=== PATIENT | female | born 1965 | race Caucasian/White ===

== ENCOUNTER 2016-06-06 17:09 | Observation (INO) ==
--- NOTE | 2016-06-06 17:48 | Urology History & Physical ---
Date of Encounter: 06/06/16 Time of Encounter: 17:46 Assessment and Plan (1) Right distal ureteral calculus Current Visit: No Status: Acute we discussed options. she has an obstructing stone and an obvious UTI. no obvious clinical signs of sepsis but WBC elevated with shift. pt has elected for OR tonight. will attempt stone extraction bc stone is small and distal. hopefully can remove with minimal manipulation but if unable will just place stent. pt has already received 2000 mg rocephin. (2) UTI (urinary tract infection) Current Visit: No Status: Acute rocephin Qualifiers: Urinary tract infection type: site unspecified Hematuria presence: without hematuria Qualified Code(s): N39.0 - Urinary tract infection, site not specified History of Present Illness Chief complaint: right flank pain HPI: Ms. Brown is a 50 year old female one month hx of pelvic pressure and discomfort. severe pain today. Ct scan 3 mm distal right ureteral stone. low grade fever. transfer from [place]. feels "miserable" today. Past Med Surg Social Fam HX - Past Medical History Medical history: kidney stones, thyroid disease Psychiatric history: no psych history - Social History Smoking Status: Never smoker Alcohol use: none Drug use: none Medications and Allergies Levothyroxine [Synthroid] 112 mcg PO 0630 06/06/16 [History] Allergies promethazine [From Phenergan] Allergy (Verified 06/06/16 17:25) See Comments Review of Systems - Constitutional fatigue, fever(s), no chills - EENT Nose, mouth and throat: no dizziness - Cardiovascular no chest pain - Respiratory no cough - Gastrointestinal abdominal pain, nausea - Genitourinary Genitourinary: flank pain, urinary frequency - Musculoskeletal back pain - Integumentary no erythema - Neurological no confusion - Psychiatric no anxiety - Hematologic/Lymphatic no easy bleeding - Allergic/Immunologic no throat swelling Exam Initial Vital Signs Temp Pulse Resp BP Pulse Ox 98.3 F 95 16 139/79 98 06/06/16 17:19 06/06/16 17:19 06/06/16 17:19 06/06/16 17:19 06/06/16 17:19 - General physical appearance Present: well developed, moderate pain - Eyes Present: PERRL - ENT Present: normal nares - Neck Present: no masses - Respiratory Present: normal respiratory effort - Cardiovascular Cardiovascular exam IM: RRR - Abdomen Abdomen: Present: soft - Integumentary Present: no rash - Neurologic Present: normal coordination - Musculoskeletal Present: normal gait - Additional Findings +CVA tender Urology Results - Labs All other labs normal.
--- NOTE | 2016-06-06 17:52 | Anesthesia Evaluation PreOp ---
Date of Encounter: 06/06/16 Time of Encounter: 18:12 - Past History Planned Operation: R ureteral stone extraction Cardiac History: Denies any Significant Hx Pulmonary History: Denies Any Significant HX TUNNEL HEADING INSPECTOR History: Denies Any Significant HX Other Medical History: Renal (renal stone), Thyroid (hypothyroidism), Other (UTI , psoriatic arthritis) Anesthesia History: No Prior Anesthetic Complications Alcohol Use: none Drug use: none Medications and Allergies Levothyroxine [Synthroid] 112 mcg PO 0630 06/06/16 [History] Allergies promethazine [From Phenergan] Allergy (Verified 06/06/16 17:25) See Comments - Meds/Allergy Pre-op Review Medications Reviewed: Yes Allergies Reviewed: Yes Beta Blockers on Current Med List: No Anesthesia Results - Labs Laboratory Tests 06/06/16 06/06/16 06/06/16 08:49 09:03 09:03 WBC 12.4 H Hgb 11.2 L Hct 35.9 Plt Count 150 Sodium 137 Potassium 3.8 Chloride 103 Carbon Dioxide 22 BUN 13 Creatinine 0.72 Est GFR ( Amer) > 60 Est GFR (Non-Af Amer) > 60 BUN/Creatinine Ratio 18 Glucose 132 H Calculated Osmolality 286 Calcium 10.1 Urine Test Negative Anesthesia Exam Last Vital Signs Temp 98.3 F 06/06/16 17:19 Pulse 95 06/06/16 17:19 Resp 16 06/06/16 17:19 BP 139/79 06/06/16 17:19 Pulse Ox 98 06/06/16 17:19 Weight: 59 kg NPO (# of Hours): water 6 hrs ago, no food > 8 hrs - HEENT Pupil (Motor): Pupils equal, EOMI Mallampati: II Teeth: Missing, Poor dentition Oral Opening: Greater than 3 - TUNNEL HEADING INSPECTOR LOC: Oriented TUNNEL HEADING INSPECTOR Motor: Normal RUE, Normal LUE, Normal RLE, Normal LLE, Normal Face TUNNEL HEADING INSPECTOR Sensory: Normal: RUE, LUE, RLE, LLE, Face - Cardiac Rhythm: Regular Murmur: None - Pulmonary Breath Sounds: bilateral Clear Respiratory Effort: Symmetrical Anesthesia Assess/Plan ASA Score: 2 Modified [place] Scale for Level of Consciousness: Cooperative, oriented, and tranquil Anesthetic Plan: General Monitoring Plan: Standard Monitors Recovery Plan: PACU
[2016-06-06] MEDS ORDERED: Dexamethasone 4 MG/ML VIAL ONE (17:53)
[2016-06-06] MEDS ORDERED: *HR* FentaNYL (PF) 100 MCG/2 ML VIAL ONE (17:53)
[2016-06-06] MEDS ORDERED: Scopolamine Patch 1.5 MG PATCH.TD72 TD ONE (17:53)
[2016-06-06] MEDS ORDERED: *HR* Rocuronium Bromide 50 MG/5 ML VIAL ONE (17:53)
[2016-06-06] MEDS ORDERED: Lidocaine -MPF 4% 5 ML AMPUL ONE (17:53)
[2016-06-06] MEDS ORDERED: *HR* Succinylcholine 200 MG/10 ML VIAL IVP ONE (17:53)
[2016-06-06] MEDS ORDERED: Ondansetron 4 MG/2 ML VIAL ONE (17:53)
[2016-06-06] MEDS ORDERED: *HR* Midazolam HCl 2 MG/2 ML VIAL ONE (17:53)
[2016-06-06] MEDS ORDERED: Lidocaine -MPF 2% 2 ML VIAL ONE (17:54)
[2016-06-06] MEDS ORDERED: Propofol 500 MG/50 ML INFUS..BTL ONE (17:55)
[2016-06-06] MEDS ORDERED: Scopolamine Patch 1.5 MG PATCH.TD72 ONE (17:56)
[2016-06-06] MEDS ORDERED: *HR* HYDROmorphone (PF) 1 MG/ML SYRINGE IVP PRN ×6 (18:01→20:01)
[2016-06-06] MEDS ORDERED: Ondansetron 4 MG/2 ML VIAL IVP ONE ×4 (18:01)
[2016-06-06] MEDS ORDERED: *HR* HYDROcodone/Acet 5/325 mg TABLET PO PRN ×2 (18:53→20:01)
[2016-06-06] MEDS ORDERED: *HR* Morphine 2 MG/ML SYRINGE IVP PRN ×2 (18:53→20:01)
[2016-06-06] MEDS ORDERED: Ketorolac 30 MG/ML VIAL IVP PRN ×2 (18:53→20:01)
[2016-06-06] MEDS ORDERED: Naloxone 0.4 MG/ML INJ IVP PRN ×2 (18:53→20:01)
[2016-06-06] MEDS ORDERED: Ondansetron 4 MG/2 ML VIAL IVP PRN ×2 (18:53→20:01)
--- NOTE | 2016-06-06 18:57 | Operative Note ---
Date of procedure: 06/06/16 Pre-op diagnosis: right distal ureteral stone Post-op diagnosis: same Procedure: right ureteroscopic stone extraction. Right retrograde pyelogram. Right ureteral stent placement Anesthesia: GETA Surgeon: Kelby Zamudio Estimated blood loss (cc): 0 Specimen: Stone Condition: stable Disposition: PACU Procedure in Detail: PROCEDURE IN DETAIL: Patient was taken back to the operating room, positioned supine on the operating table. Anesthesia was applied without complication. They were moved into dorsal lithotomy. Careful attention was maintained to cushion all pressure points for patient's safety. They were prepped and draped in sterile fashion. Time-out was performed with the proper patient and procedure. A 17-Lao rigid cystoscope was inserted into the bladder without difficulty. cloudy purulent urine returned. Systematic examination of bladder revealed no abnormalities. The ureteral orifice was cannulated using a 5-Lao ureteral Catheter and a retrograde pyelogram was performed using Isovue. A filling defect was identified which corresponded to the stone in the distal right ureter. At that point, a zip wire was placed through the 5-Lao and confirmed in the renal pelvis with fluoroscopy. A semi-rigid ureteroscope was carefully inserted into the bladder and guided into the ureteral oriface. The stone was basketed out of the ureter with a 1.9 tipless basket. All stone in the ureter was removed. A 4.8 x 24 ureteral stent was placed over the zip wire under fluoroscopy without complication. The bladder was drained along with the stone. They were collected and sent for stone analysis. The string was left attached to the stent and secured to the patient for easy removal.
[2016-06-06] MEDS ORDERED: 0.9 % Sodium Chloride 1,000 ML IVC SCH (19:00)
--- NOTE | 2016-06-06 19:29 | Anesthesia Evaluation Post Op ---
Date of Encounter: 06/06/16 Time of Encounter: 19:28 - Vital Signs Vital Signs: Vital Signs/O2 Sat, Most Current Temp Pulse Resp BP Pulse Ox 98.0 F 89 16 129/92 97 06/06/16 18:56 06/06/16 19:16 06/06/16 19:16 06/06/16 19:16 06/06/16 19:16 - Lungs Lungs: Clear Ascult./Percussion - Airway Airway: Non-obstructed - Cardiovascular Regular Rate - Mental Status Mental Status: Alert & Oriented, Answers Appropriately - Pain Pain Scale: 3 Pain Scale used: Numeric (1 - 10) - Nausea Vomiting Nausea Vomiting: Not Present - Hydration Hydration: Ice chips, Has not voided - Discharge PostOp Status: Transfer Patient to floor
[2016-06-06] MEDS ORDERED: Acetaminophen 325 MG TABLET PO PRN (20:30)
[2016-06-06] MEDS: 0.9 % Sodium Chloride 1,000 ML IVC SCH (21:22)
[2016-06-07] MEDS: 0.9 % Sodium Chloride 1,000 ML IVC SCH (05:52)
[2016-06-07 06:26] VITALS: BP 95/60
--- NOTE | 2016-06-07 07:18 | Discharge Summary ---
Date of Encounter: 06/07/16 Time of Encounter: 07:15 - Discharge Diagnosis (1) Right distal ureteral calculus Priority: Primary Status: Resolved (2) UTI (urinary tract infection) Priority: Secondary Status: Suspected Qualifiers: Urinary tract infection type: site unspecified Hematuria presence: without hematuria Qualified Code(s): N39.0 - Urinary tract infection, site not specified - Discharge Medications Prescriptions: HYDROcodone/Acet 5/325 mg [Upton 5-325 mg] 1 tab PO Q6HR PRN #15 tablet PRN Reason: Moderate Pain Ketorolac [Toradol] 10 mg PO Q6HR #15 tablet Cefdinir [Omnicef] 300 mg PO BID #20 capsule Phenazopyridine [Pyridium] 200 mg PO TID PRN #20 tablet PRN Reason: dysuria Home Medications: Ergocalciferol (VITAMIN D2) [Vitamin D2] 50,000 unit PO QWEEK 06/06/16 [History] Levothyroxine [Synthroid] 112 mcg PO DAILY 06/06/16 [History] Cefdinir [Omnicef] 300 mg PO BID #20 capsule 06/07/16 [Rx] HYDROcodone/Acet 5/325 mg [Upton 5-325 mg] 1 tab PO Q6HR PRN #15 tablet [Rx] Ketorolac [Toradol] 10 mg PO Q6HR #15 tablet 06/07/16 [Rx] Phenazopyridine [Pyridium] 200 mg PO TID PRN #20 tablet 06/07/16 [Rx] Allergies/Adverse Reactions: Allergies promethazine [From Phenergan] Allergy (Verified 06/06/16 17:25) See Comments Date of admission: 06/06/16 19:57 Primary care physician: Jeffrey Canela MD Discharging clinician: Kelby Zamudio Anticipated date of discharge: 06/07/16 - Patient Status Disposition: Home, Self-Care Functional capacity at discharge: independent ambulation Overall status at discharge: patient is progressing back to baseline - Discharge Instructions Follow Up With: Kelby Zamudio MD [Partnered Physician] - (4 weeks. see instructions regarding stent) Additional Instructions: Expect stent discomfort including urgency, frequency, burning on urination, blood in the urine, flank discomfort. This is normal. Call if excessive. Call if fever over 101 Okay to remove the stent on Friday morning by pulling on the string. Expect some flank discomfort for 24-48 hours after the stent is removed. If unable to remove the stent okay to present to the urology office for removal. - Diet and Activity Activity: increase activity as tolerated Diet: advance to your usual diet - Hospital Course Hospital course: Ms. Brown is a 50 year old female presented with a 3 mm distal ureteral calculi last night and UTI. Successful stone extraction without complication. Vital signs are completely stable overnight. No clinical evidence of sepsis. Patient' s pain is controlled. Expected stent discomfort. She feels comfortable discharge today. Plan to discharge. Antibiotics pending but will use Omnicef. I will personally follow cultures to verify no resistance - Time Spent with Patient Total time spent providing and/or coordinating discharge services: Less than 30 minutes Exam Initial Vital Signs Temp Pulse Resp BP Pulse Ox 98.3 F 95 16 139/79 98 06/06/16 17:19 06/06/16 17:19 06/06/16 17:19 06/06/16 17:19 06/06/16 17:19 - General physical appearance Present: well developed, no distress - VTE Documentation of Mechanical Device: Intermittent pneumatic compression device
== END 2016-06-07 10:30 | disposition home or self-care (01) ==
LOC: EMEROO 17:09 → 3ANU 17:09 → EMEROO 18:03 → 3ANU 18:30 → UNDODISOB 19:59
PROVIDERS: ADMIT Urology; ATTEND Urology

== ENCOUNTER 2017-06-05 12:29 | Inpatient (IN) ==
[2017-06-05] MEDS ORDERED: 0.9 % Sodium Chloride 500 ML IVC ONE (12:33)
[2017-06-05] MEDS ORDERED: Ondansetron 4 MG/2 ML VIAL IVP ONE (12:33)
[2017-06-05 12:57] LABS: Hematocrit 19.4 % (35.3-44.9); Mean Corpuscular HGB Conc 26.3 g/dL (31.6-35.5); Mean Corpuscular Hemoglobin 18.8 pg (28.0-33.3); Mean Corpuscular Volume 71.3 fL (83.0-100.0); Mean Platelet Volume 9.8 fL (9.4-12.4); Platelet Count 116 K/mcL (140-400); Red Blood Count 2.72 M/mcL (3.82-4.97)
[2017-06-05 13:05] LABS: INR 1.1; Prothrombin Time 11.9 Seconds (9.4-12.1)
[2017-06-05 13:06] LABS: Hemoglobin 5.1 g/dL (11.5-15.4)
[2017-06-05 13:11] LABS: BUN/Creatinine Ratio 22 (6-26); Blood Urea Nitrogen 11 mg/dL (6-20); Carbon Dioxide 26 mEq/L (23-29); Chloride 104 mEq/L (98-107); Glucose 98 mg/dL (70-105); Osmolality,Calculated 283 (280-300); Potassium 3.3 mEq/L (3.5-5.1); Sodium 137 mEq/L (136-145); eGFR For African Americans > 60 (> 60); eGFR For Non-African Americans > 60 (> 60)
--- NOTE | 2017-06-05 13:26 | Emergency Department Note ---
Disposition Clinical Impression: Symptomatic anemia Menorrhagia Qualifiers: Menorrahagia type: with regular cycle Qualified Code(s): N92.0 - Excessive and frequent menstruation with regular cycle Disposition: Admitted As Inpatient Condition: Fair Referrals: Jeffrey Canela MD [Primary Care Provider] - Forms: ED Satisfaction Letter Time of Disposition: 14:36 General Adult HPI - General Chief complaint: ED Recheck/Abnormal Lab/Rx Stated complaint: CP/Hemoglobin 5 Time Seen by Provider: 06/05/17 12:32 Source: patient, family Limitations: no limitations Nursing Notes Reviewed: Yes Vital Signs Reviewed: Yes - History of Present Illness HPI Narrative: History of present illness: 51-year-old female 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 Patient states that she has been having many O and metromenorrhagia since January. She was following up with Dr. Mejia but is unable to do so. Her last evaluation was January. She said she really bleeds heavily frequently with large clots with cramping. Patient states she has been having increasing and worsening dyspnea on exertion and chest discomfort with exertion. No history of CAD. Patient quit smoking 20 years ago. Patient denies any blood in her stools or history of GI bleeding. Patient said she was prescribed Naprosyn by Dr. Mejia back in January which was helping somewhat with her symptoms. Patient is not on any blood thinners, but there has been no recent medication changes. Patient's daughter at bedside states she is "pale" Pain Scale: 3 - Related Data Home Medications Medication Instructions Recorded Confirmed Levothyroxine [Synthroid] 112 mcg PO DAILY 06/06/16 06/05/17 Cholecalciferol (D-3) [Vitamin D] 5,000 unit PO DAILY 06/05/17 06/05/17 Ferrous Sulfate [Iron] 325 mg PO BID 06/05/17 06/05/17 Naproxen Sodium [All Day Pain 220 mg PO DAILY PRN 06/05/17 06/05/17 Relief] Ondansetron [Zofran] 8 mg PO DAILY PRN 06/05/17 06/05/17 Allergies Allergy/AdvReac Type Severity Reaction Status Date / Time promethazine [From Phenergan] Allergy See Verified 06/05/17 13:45 Comments Sulfa (Sulfonamide AdvReac Nausea Verified 06/05/17 13:45 Antibiotics) All systems ED: reviewed and negative except as stated. Constitutional: Reports: weakness Cardiovascular: Reports: chest pain, dyspnea on exertion Genitourinary: Reports: abnormal menses Neurological: Reports: weakness Endocrine: Reports: fatigue Past Medical History - Past Medical History Attestation: Yes The following information was validated with the patient. 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 history: Reports: endometriosis - Social History Smoking Status: Former smoker Smokeless Tobacco Status: No Alcohol use: Reports: occasionally Drug use: Reports: none Physical Exam - General Limitations: no limitations General appearance: alert, in no apparent distress - Head Head exam: atraumatic, normocephalic - Eye Eye exam: Present: normal appearance, PERRL, EOMI - ENT ENT exam: normal exam, normal oropharynx - Neck Neck exam: Present: normal inspection, full ROM - Chest Chest inspection: Present: normal inspection, symmetric chest wall rise - Respiratory Respiratory exam: Present: normal lung sounds bilaterally - Cardiovascular Cardiovascular exam: Present: regular rate, normal rhythm - Abdominal Exam Abdominal exam: Present: soft, Non-Tender - Rectal Exam Process Operator present during exam: Yes (MIKI PARKINSON) Rectal exam: Present: normal inspection, normal rectal tone - Extremities Exam Extremities exam: Present: normal inspection, full ROM - Expanded Lower Extremity Exam Neurovascular/Tendon exam: Present: normal capillary refill, pulse deficit Gait: not tested/not observed - Back Exam Back exam: Present: normal inspection, full ROM - Neurological Exam Neurological exam: Present: alert, oriented X3, CN II-XII intact - Psychiatric Psychiatric exam: Present: normal affect, normal mood - Skin Skin exam: Present: warm, dry, intact, pallor Course - Reevaluation(s) Reevaluation #1: Rectal examination showed light brown stool without signs of gross bleeding, fecal occult blood testing is in process. Hemoglobin came back critically low at 5.1 which is a drop of 0.1 mg/dL of hemoglobin from yesterday. 4 units PRBC has been ordered. Second IV has been ordered. Patient be getting a meal tray admission and anticipated awaiting on final labs. Providing 40 minutes of critical care service for this patient. Admission disposition pending Time: 13:28 Reevaluation #2: Discussed case with the hospitalist, patient accepted for admission. Hospitalist requested that I consult PATIENT TRANSPORT OFFICER. Patient's been placed and consult placed orders. Patient to be admitted in stable condition first unit of PRBCs is running in. Time: 14:35 Vital Signs Temperature 98.3 F 06/05/17 12:30 Pulse Rate 84 06/05/17 12:30 Respiratory Rate 20 06/05/17 12:30 Blood Pressure 152/102 06/05/17 12:30 O2 Sat by Pulse Oximetry 100 06/05/17 12:30 Temperature 98.8 F 06/05/17 14:31 Pulse Rate 94 06/05/17 14:31 Respiratory Rate 16 06/05/17 14:31 Blood Pressure 123/90 06/05/17 14:31 O2 Sat by Pulse Oximetry 100 06/05/17 12:30 Oxygen Delivery Oxygen Delivery Room Air Medical Decision Making - Medical Records Medical records reviewed: Yes I reviewed the patient's medical records. - Lab Data Lab results reviewed: Yes I reviewed the patient's lab results. Result diagrams: 06/05/17 12:45 06/05/17 12:45 Lab Results 06/05/17 06/05/17 06/05/17 Range/Units 12:45 12:45 12:45 WBC 3.3 L (4.3-11.1) K/mcL RBC 2.72 L (3.82-4.97) M/mcL Hgb 5.1 L* (11.5-15.4) g/dL Hct 19.4 L (35.3-44.9) % MCV 71.3 L (83.0-100.0) fL MCH 18.8 L (28.0-33.3) pg MCHC 26.3 L (31.6-35.5) g/dL RDW 19.0 H (11.5-14.5) % Plt Count 116 L (140-400) K/mcL MPV 9.8 (9.4-12.4) fL Seg Neutrophils % 66.0 % Lymphocytes % 20.0 % Monocytes % 12.0 % Eosinophils % 2.0 % Neutrophils # 2.2 (1.6-8.9) K/mcL Lymphocytes # 0.7 (0.6-4.6) K/mcL Monocytes # 0.4 (0.0-1.3) K/mcL Eosinophils # 0.1 (0.0-0.6) K/mcL Platelet Estimate Slight Decrease L (Normal) Polychromasia 1+ A (Not Present) Hypochromasia Present A (Not Present) Anisocytosis 1+ A (Not Present) Microcytosis Present A (Not Present) PT 11.9 (9.4-12.1) Seconds INR 1.1 Sodium (136-145) mEq/L Potassium (3.5-5.1) mEq/L Chloride (98-107) mEq/L Carbon Dioxide (23-29) mEq/L BUN (6-20) mg/dL Creatinine (0.60-1.20) mg/dL Est GFR ( Amer) (> 60) Est GFR (Non-Af Amer) (> 60) BUN/Creatinine Ratio (6-26) Glucose (70-105) mg/dL Calculated Osmolality (280-300) Calcium (8.6-10.3) mg/dL Troponin I (< 0.04) ng/mL Stool Occult Blood (Negative) Blood Type A POSITIVE Antibody Screen NEGATIVE Crossmatch See Detail 06/05/17 06/05/17 06/05/17 Range/Units 12:45 12:45 13:36 WBC (4.3-11.1) K/mcL RBC (3.82-4.97) M/mcL Hgb (11.5-15.4) g/dL Hct (35.3-44.9) % MCV (83.0-100.0) fL MCH (28.0-33.3) pg MCHC (31.6-35.5) g/dL RDW (11.5-14.5) % Plt Count (140-400) K/mcL MPV (9.4-12.4) fL Seg Neutrophils % % Lymphocytes % % Monocytes % % Eosinophils % % Neutrophils # (1.6-8.9) K/mcL Lymphocytes # (0.6-4.6) K/mcL Monocytes # (0.0-1.3) K/mcL Eosinophils # (0.0-0.6) K/mcL Platelet Estimate (Normal) Polychromasia (Not Present) Hypochromasia (Not Present) Anisocytosis (Not Present) Microcytosis (Not Present) PT (9.4-12.1) Seconds INR Sodium 137 (136-145) mEq/L Potassium 3.3 L (3.5-5.1) mEq/L Chloride 104 (98-107) mEq/L Carbon Dioxide 26 (23-29) mEq/L BUN 11 (6-20) mg/dL Creatinine 0.51 L (0.60-1.20) mg/dL Est GFR ( Amer) > 60 (> 60) Est GFR (Non-Af Amer) > 60 (> 60) BUN/Creatinine Ratio 22 (6-26) Glucose 98 (70-105) mg/dL Calculated Osmolality 283 (280-300) Calcium 9.0 (8.6-10.3) mg/dL Troponin I < 0.03 (< 0.04) ng/mL Stool Occult Blood Negative (Negative) Blood Type Antibody Screen Crossmatch - Radiology Data Radiology results reviewed: Yes I reviewed the patient's radiology results. - EKG Data EKG #1 EKG attestation: Yes I reviewed and interpreted this EKG. EKG results narrative: 12-lead EKG reviewed without Cardiologic assisting shows: Sinus rhythm at 88 bpm, [place] interval shortened at 104 ms, normal QRS and QT corrected. No acute ischemic changes are noted. No acute changes when compared to prior EKG dated the 12/22/16
[2017-06-05 13:38] LABS: Anisocytosis 1+ (Not Present); Eosinophils # 0.1 K/mcL (0.0-0.6); Hypochromasia Present (Not Present); Lymphocytes # 0.7 K/mcL (0.6-4.6); Microcytosis Present (Not Present); Monocytes # 0.4 K/mcL (0.0-1.3); Neutrophils # 2.2 K/mcL (1.6-8.9); Platelet Estimate Slight Decrease (Normal)
[2017-06-05 13:39] LABS: Polychromasia 1+ (Not Present)
[2017-06-05] MEDS ORDERED: 0.9 % Sodium Chloride 250 ML ONE ×3 (14:02→21:18)
--- NOTE | 2017-06-05 19:59 | OB/GYN Consult Note ---
Date of Encounter: 06/05/17 Time of Encounter: 19:55 Assessment and Plan (1) Symptomatic anemia Current Visit: Yes Status: Acute Anemia managed by hospital service (2) Pancytopenia Current Visit: Yes Status: Acute Pancytopenia noted on labs (3) Menorrhagia Current Visit: Yes Status: Acute All labs, previous CT, previous ob office notes and H&P reviewed with Dr. Sinclair Plan to perform transvaginal and transabdominal ultrasound in the morning. Drop in hemoglobin unlikely due to menses as sole cause, Will follow-up on ultrasound Discussed with Dr. Rogers Qualifiers: Menorrahagia type: with irregular cycle Qualified Code(s): N92.1 - Excessive and frequent menstruation with irregular cycle History of Present Illness Consult date: 06/05/17 Reason for consult: menorrhagia Chief complaint: Metomenorrhagia History of present illness: 51-year-old female presented to the emergency department after phone call from PCP directing admission for blood transfusion. with chief complaint of chest pain and quality and breathing with shortness of breath. Patient states the symptoms have been going on for 3 weeks. She had basic lab work completed at primary care physician yesterday and showed a hemoglobin of 5.1. She was told to follow up with the emergency department. In the emergency department CBC completed showed pancytopenia. Stool occult was negative. We will consult a due to patient's heavy bleeding during menstruation and concerned this could be the cause of the anemia. Patient states she does have anemia as a child but has not had as an adult. Pt with a history of menometrorrhagia for the last few years. Pt states menses are monthly lasting on average 6 days and extremely heavy and had multiple large clots, that occasionally appear to have tissue like placenta in clots. on her 3 heaviest days of menses she has to use 2 overnight pads an hour and uses a whole box in 2 -3 days. Occasional breakthough bleeding, spotting requiring a pantyliner, resolves by taking Naproxen. She did follow up with Dr. Mejia in December and given naproxen and ferrous sulfate. She states she takes the iron approximately every other day. Patient states she is in naproxen as needed. Pt states has had nausea since parathyroid surgery in January, and has had a 10 lb unintentional weight loss since surgery. She states no active bleeding at this time. LMP was the beginning of this month. Patient does have a significant past medical history of IBS, chronic nausea, parathyroid surgery. Does have a significant past family history of uterine cancer in mother and breast cancer in grandmother. Patient states she does have spotting during intercourse. Has not had any recent ultrasounds but did have a CT completed in March in the emergency department which did not show any acute pelvic abnormalities. Past Med Surg Social Fam HX - Past Medical History Medical history: GERD, kidney stones, thyroid disease, other Psychiatric history: no psych history - Past Surgical History Surgical History: sinus surgery - Social History Smoking Status: Former smoker Smokeless Tobacco Status: No Alcohol use: occasionally Drug use: none - Family History Grandmother Hx Family Cancer: Yes Mother Hx Family Cancer: Yes (uterine) Hx Family Endocrine Disorder: Yes (diabetes) Hx Family Autoimmune Disorders: Yes (lupus) Hx Family Reproductive Disorders: Yes (uterine cancer) Medications and Allergies Levothyroxine [Synthroid] 112 mcg PO DAILY 06/06/16 [History] Cholecalciferol (D-3) [Vitamin D] 5,000 unit PO DAILY 06/05/17 [History] Ferrous Sulfate [Iron] 325 mg PO BID 06/05/17 [History] Naproxen Sodium [All Day Pain Relief] 220 mg PO DAILY PRN 06/05/17 [History] Ondansetron [Zofran] 8 mg PO DAILY PRN 06/05/17 [History] 3 Allergy/AdvReac Type Severity Reaction Status Date / Time promethazine [From Phenergan] Allergy See Verified 06/05/17 13:45 Comments Sulfa (Sulfonamide AdvReac Nausea Verified 06/05/17 13:45 Antibiotics) Review of Systems All Systems: reviewed and no additional remarkable complaints except as stated Constitutional: anorexia, fatigue, lethargy, weakness, weight loss (10 pounds in 3 months) Cardiovascular: chest pain, palpitations Respiratory: dyspnea Gastrointestinal: diarrhea, nausea Genitourinary Female: abnormal menses, abnormal vaginal bleeding, dysmenorrhea, menorrhagia, metrorrhagia, no amenorrhea Menstruation: cycle variable, menses 1-7 days, period heavy, period spotting Exam - Vital Signs Vital signs: Initial Vital Signs Temp Pulse Resp BP Pulse Ox 98.3 F 84 20 152/102 100 06/05/17 12:30 06/05/17 12:30 06/05/17 12:30 06/05/17 12:30 06/05/17 12:30 - Constitutional Constitutional: well developed, no acute distress, thin - HEENT HEENT: Mucus Membranes Moist - Lungs Respiratory exam: CTAB - Cardiovascular Cardiovascular exam: RRR - Abdomen Abdomen: Present: bowel sounds normal, non tender - Extremities Extremities exam: normal inspection - Vagina Vagina: Present: normal moisture. Absent: discharge, ulceration - Uterus Uterus exam: Present: enlarged, normal contour. Absent: tender - Anus/Rectum Anus/Rectum: Present: normal perianal skin - Comments Comments: Unable to palpate adenexa due to patient position and discomfort Results Result Diagrams: 06/05/17 12:45 06/05/17 12:45 Abnormal lab results WBC 3.3 K/mcL (4.3-11.1) L 06/05/17 12:45 RBC 2.72 M/mcL (3.82-4.97) L 06/05/17 12:45 Hgb 5.1 g/dL (11.5-15.4) L* 06/05/17 12:45 Hct 19.4 % (35.3-44.9) L 06/05/17 12:45 MCV 71.3 fL (83.0-100.0) L 06/05/17 12:45 MCH 18.8 pg (28.0-33.3) L 06/05/17 12:45 MCHC 26.3 g/dL (31.6-35.5) L 06/05/17 12:45 RDW 19.0 % (11.5-14.5) H 06/05/17 12:45 Plt Count 116 K/mcL (140-400) L 06/05/17 12:45 Platelet Estimate Slight Decrease (Normal) L 06/05/17 12:45 Polychromasia 1+ (Not Present) A 06/05/17 12:45 Hypochromasia Present (Not Present) A 06/05/17 12:45 Anisocytosis 1+ (Not Present) A 06/05/17 12:45 Microcytosis Present (Not Present) A 06/05/17 12:45 Potassium 3.3 mEq/L (3.5-5.1) L 06/05/17 12:45 Creatinine 0.51 mg/dL (0.60-1.20) L 06/05/17 12:45 All other labs normal. Consult Discharge Plan - Plan Referrals: Jeffrey Canela MD [Primary Care Provider] -
[2017-06-05] MEDS ORDERED: *HR* Morphine 2 MG/ML SYRINGE IVP PRN (20:12)
[2017-06-05] MEDS ORDERED: Ondansetron 4 MG/2 ML VIAL IVP PRN (20:12)
[2017-06-05] MEDS ORDERED: Naloxone 0.4 MG/ML INJ IVP PRN (20:12)
[2017-06-05] MEDS ORDERED: Acetaminophen 325 MG TABLET PO PRN (20:12)
--- NOTE | 2017-06-05 20:54 | Internal Med History&Physical ---
Date of Encounter: 06/05/17 Time of Encounter: 19:40 Assessment and Plan (1) Symptomatic anemia Current visit: Yes Status: Acute 1. Iron studies obtained yesterday and reviewed with Dr. Apodaca via phone consultation. 2. Labs and history suggest iron deficiency from vaginal bleeding. 3. Transfuse 3 units PRBC as ordered by ER. 4. Will start Venofer infusion as requested by Dr. Apodaca. 5. HEM/ONC consulted to assist in work-up and follow up of iron deficiency anemia. (2) Chest pain Current visit: Yes Status: Acute 1. Based upon history and exam, I suspect this is due to profound and symptomatic anemia. 2. Will trend tropnins and EKG's. 3. Outpatient stress test can be done as outpatient once anemia and clinical condition stabilize. 4. Resolved after first unit PRBC. Qualifiers: Chest pain type: chest pain due to myocardial ischemia Ischemic chest pain type: other angina pectoris type Qualified Code(s): I20.8 - Other forms of angina pectoris (3) Menorrhagia Current visit: Yes Status: Chronic 1. BARREL MARKER consulted. 2. Pelvic ultrasound ordered for tomorrow. 3. BARREL MARKER follow up after discharge. Qualifiers: Menorrahagia type: with irregular cycle Qualified Code(s): N92.1 - Excessive and frequent menstruation with irregular cycle (4) Pancytopenia Current visit: Yes Status: Acute 1. Follow up CBC tomorrow. 2. Consult HEM/ONC -- Dr. Apodaca notified. (5) DVT prophylaxis Current visit: Yes Status: Acute 1. EPCD's. Internal Medicine - H&P: HPI Chief complaint: chest pain; dyspnea on exertion; anemia Admitted From: Emergency Dept Plans for Post Hospital Care: Home History of present illness: Ms. Brown is a 51 year old female who presents to the ER today with complaints of vague chest tightness, dyspnea on exertion, and profound anemia. She was found to have a hemoglobin of 5.1 mg and was admitted for symptomatic anemia. EKG and troponins were negative. She reports having had chronic and profound menorrhagia for the last several months with worsening anemia. Lab studies suggest iron deficiency anemia. She was ordered 3 units of PRBC transfusion by the ER. By the time I saw her, she was in the middle of her second unit of blood transfusion and feels much better. She denies any chest pain or shortness of breath presently. BARREL MARKER saw her in consultation and has ordered pelvic ultrasound in the morning. They requested a HEM/ONC consultation given her pancytopenia. I reviewed her labs and, other than today, she has not had pancytopenia. I did contact Dr. Apodaca from HEM/ONC, and he will see her in consultation tomorrow. He recommended starting Venofer tonight for her iron deficiency. Past Med Surg Social Fam HX - Past Medical History Attestation: Yes The following information was validated with the patient. Source: patient, old records reviewed Medical history: GERD, kidney stones, thyroid disease Psychiatric history: no psych history - Past Surgical History Surgical History: sinus surgery, other (parathyroid surgery) - Social History Smoking Status: Former smoker Smokeless Tobacco Status: No Alcohol use: occasionally Drug use: none Current living situation: Home, With Family Activity Level: Independent ambulation Recent Out of Country Travel Within the Last 8 Weeks: No - Family History Grandmother Hx Family Cancer: Yes Mother Hx Family Cancer: Yes (uterine) Hx Family Endocrine Disorder: Yes (diabetes) Hx Family Autoimmune Disorders: Yes (lupus) Hx Family Reproductive Disorders: Yes (uterine cancer) Internal Medicine - H&P: Meds Levothyroxine [Synthroid] 112 mcg PO DAILY 06/06/16 [History] Cholecalciferol (D-3) [Vitamin D] 5,000 unit PO DAILY 06/05/17 [History] Ferrous Sulfate [Iron] 325 mg PO BID 06/05/17 [History] Naproxen Sodium [All Day Pain Relief] 220 mg PO DAILY PRN 06/05/17 [History] Ondansetron [Zofran] 8 mg PO DAILY PRN 06/05/17 [History] 3 Allergy/AdvReac Type Severity Reaction Status Date / Time promethazine [From Phenergan] Allergy See Verified 06/05/17 13:45 Comments Sulfa (Sulfonamide AdvReac Nausea Verified 06/05/17 13:45 Antibiotics) - Constitutional Constitutional: fatigue, no chills, no fever(s) - EENT Eyes: no blurry vision, no change in vision Ears: no ear pain, no tinnitus Nose, mouth and throat: no nasal congestion, no sinus pressure, no sore throat - Cardiovascular Cardiovascular ROS IM: chest pain, dyspnea on exertion, no palpitations, no syncope - Respiratory Respiratory: dyspnea on exertion, no cough, no hemoptysis, no chest congestion, no excessive phlegm production, no change in phlegm color - Gastrointestinal Gastrointestinal: nausea, no abdominal pain, no heartburn, no hematemesis, no hematochezia, no melena, no vomiting - Genitourinary Genitourinary: abnormal menses, abnormal vaginal bleeding, menorrhagia, no dysuria, no flank pain, no hematuria - Musculoskeletal Musculoskeletal ROS IM: muscle cramps, no back pain, no myalgias - Integumentary Integumentary IM: no rash, no jaundice - Neurological Neurological ROS: weakness, no focal weakness, no frequent falls, no headache(s) - Psychiatric Psychiatric: no anxiety, no depression - Endocrine Endocrine IM: no polydipsia, no polyuria - Hematologic/Lymphatic Hematologic/Lymphatic: easy bruising, no lymphadenopathy - Allergic/Immunologic Allergic/Immunologic: no wheezing, no GI upset with certain foods - Constitutional Vitals: Temp Pulse Resp BP Pulse Ox 99.0 F 76 12 135/86 100 06/05/17 18:02 06/05/17 18:02 06/05/17 18:02 06/05/17 18:02 06/05/17 12:30 General appearance: Present: cooperative, A&O X 3, pleasant, no acute distress, answers questions appropriately - Head Head exam: Present: atraumatic, normal inspection - Eye Eye exam: Present: EOMI, PERRL. Absent: scleral icterus, conjuntiva pink (pale) Pupils: Present: normal accommodation - ENT ENT exam: Present: mucous membranes dry, normal exam - Neck Neck exam general surgery: Present: full ROM, supple. Absent: lymphadenopathy, tenderness - Respiratory Respiratory exam: Present: CTAB. Absent: chest wall tenderness, rales, respiratory distress, rhonchi, wheezes - Cardiovascular Cardiovascular exam: Present: RRR, +S1, +S2. Absent: diastolic murmur, systolic murmur - GI/Abdominal GI/Abdominal exam: Present: normal bowel sounds, soft. Absent: guarding, hepatomegaly, mass, rebound, splenomegaly, tenderness - Extremities Exam Extremities exam: Present: full ROM, warm, radial pulses palpable and symmetrical. Absent: calf tenderness, joint swelling - Back Exam Back exam: Absent: CVA tenderness (L), CVA tenderness (R) - Neurological Exam Neurological exam: Present: alert, CN II-XII intact, oriented X3, no focal deficits - Psychiatric Psychiatric exam: Present: normal affect, normal mood - Skin Skin exam: Present: dry, warm. Absent: rash Internal Med - H&P Results - Labs CBC & Chem 7: 06/05/17 12:45 06/05/17 12:45 - EKG Data -: EKG Interpreted by Myself EKG shows normal: sinus rhythm - EKG Data EKG comments: 06/05/17 21:04 NSR; no acute changes - Diagnostic Studies Chest x-ray Status: image reviewed by me (negative)
[2017-06-05] MEDS: Famotidine 20 MG TABLET PO SCH (23:37)
[2017-06-06] MEDS: Iron Sucrose Complex 200 MG in 0.9 % Sodium Chloride 100 ML IVPB SCH ×2 (00:44→14:35)
[2017-06-06 02:02] LABS: Basophils % 0.4 %; Eosinophils # 0.1 K/mcL (0.0-0.6); Eosinophils % 2.3 %; Hematocrit 30.1 % (35.3-44.9); Immature Granulocytes % 0.4 % (0-4); Lymphocytes # 0.9 K/mcL (0.6-4.6); Lymphocytes % 18.6 %; Mean Corpuscular HGB Conc 29.9 g/dL (31.6-35.5); Mean Platelet Volume 10.8 fL (9.4-12.4); Monocytes # 0.6 K/mcL (0.0-1.3); Neutrophils # 3.2 K/mcL (1.6-8.9); Nucleated Red Blood Cells 0.8 /100 WBC (0); Platelet Count 122 K/mcL (140-400); Red Blood Count 3.91 M/mcL (3.82-4.97); Red Cell Distribution Width 19.4 % (11.5-14.5); Segmented Neutrophils % 66.3 %
[2017-06-06 02:20] LABS: Alanine Aminotransferase 19 Units/L (7-52); Albumin 3.6 g/dL (3.5-5.7); Albumin/Globulin Ratio 1.5 (1.1-2.2); Alkaline Phosphatase 44 Units/L (34-104); Aspartate Amino Transferase 44 Units/L (13-39); BUN/Creatinine Ratio 16 (6-26); Bilirubin,Total 1.5 mg/dL (0.3-1.0); Blood Urea Nitrogen 11 mg/dL (6-20); Calcium 8.8 mg/dL (8.6-10.3); Carbon Dioxide 27 mEq/L (23-29); Chloride 105 mEq/L (98-107); Globulin 2.4 g/dL (2.4-3.5); Glucose 114 mg/dL (70-105); Magnesium 1.7 mg/dL (1.6-2.6); Osmolality,Calculated 282 (280-300); Potassium 3.8 mEq/L (3.5-5.1); Sodium 136 mEq/L (136-145); eGFR For African Americans > 60 (> 60); eGFR For Non-African Americans > 60 (> 60)
[2017-06-06] MEDS: Famotidine 20 MG TABLET PO SCH (08:18)
[2017-06-06] MEDS ORDERED: Cholecalciferol (D-3) 1,000 UNIT TABLET PO SCH (09:00)
--- NOTE | 2017-06-06 09:45 | Oncology Inp Consult Note ---
<Nusrat Richmond L - Last Filed: 06/06/17 18:05> Date of Encounter: 06/06/17 Time of Encounter: 09:45 Assessment and Plan (1) Anemia Status: Acute Assessment and plan: Mircrocytic, hypochromic. Hgb upon upon admission 5.1, Hgb today 9.0 following 3 units PRBC. She also received her first dose of venofer today and tolerated well. She is improving symptomatically. Anemia most likely secondary to chronic blood loss causing iron deficiency coupled with a B12 deficiency. Anemia work up shows she is significantly iron deficient with iron 15 and 2% saturation, ferritin <8. She has venofer 200 mg ordered x5 days while admitted, if she is discharged prior to this we will follow up with IV iron replacement on outpatient basis. B12 deficiency, serum B12 low at 239, recommend B12 1000 g IM and folic acid 1 mg by mouth daily. She has no hx of bowel surgery/disorders, she does not take metformin/PPI. Thromboctopenia is mild may be secondary to B12 deficiency. She would benefit from continued CBC monitoring and will have f/u arranged with hematology/ oncology. Leukopenia resolved, WBC yesterday 3.3, 4.9 today. Stool occult negative. She has LEATHERSMITH consult and pelvic US ordered for today and will follow up with [facility]ACILITY MAINTENANCE WORKER on outpatient basis. Qualifiers: Anemia type: iron deficiency Qualified Code(s): D50.0 - Iron deficiency anemia secondary to blood loss (chronic) - Data of Consult Patient: new to practice Consult date: 06/06/17 Requesting Physician: Benjamín Aden Primary Care Provider: Jeffrey Canela MD - Consult Narrative Reason for consult: Anemia History of present illness: Ms. Brown is a 51 year old female with past medical history significant for uretal stones and menorrhagia. Patient presented to the ER with complaints of chest tightness and dyspnea on exertion. Further work up revealed a hgb of 5.1, she was admitted for anemia. She reports she has had chronic and severe menorrhagia for the past 2-3 months, she had a planned ablation but this was cancelled due to her parathyroidectomy. Oncology was consulted for pancytopenia , which has resolved however her anemia and mild thrombocytopenia is still present. Past Med Surg Social Fam HX - Past Medical History Medical history: GERD, kidney stones, thyroid disease Psychiatric history: no psych history - Past Surgical History Surgical History: sinus surgery, other (parathyroid surgery) - Social History Smoking Status: Former smoker Smokeless Tobacco Status: No Alcohol use: occasionally Drug use: none - Family History Grandmother Hx Family Cancer: Yes Mother Hx Family Cancer: Yes (uterine) Hx Family Endocrine Disorder: Yes (diabetes) Hx Family Autoimmune Disorders: Yes (lupus) Hx Family Reproductive Disorders: Yes (uterine cancer) Medications and Allergies Levothyroxine [Synthroid] 112 mcg PO DAILY 06/06/16 [History] Cholecalciferol (D-3) [Vitamin D] 5,000 unit PO DAILY 06/05/17 [History] Ferrous Sulfate [Iron] 325 mg PO BID 06/05/17 [History] Naproxen Sodium [All Day Pain Relief] 220 mg PO DAILY PRN 06/05/17 [History] Ondansetron [Zofran] 8 mg PO DAILY PRN 06/05/17 [History] Iron SUCROSE Complex [Venofer] 200 mg IV DAILY 3 Days #30 mls 06/06/17 [Rx] 3 Allergy/AdvReac Type Severity Reaction Status Date / Time promethazine [From Phenergan] Allergy See Verified 06/05/17 13:45 Comments Sulfa (Sulfonamide AdvReac Nausea Verified 06/05/17 13:45 Antibiotics) Constitutional: Present: fatigue, weakness. Absent: headache(s), weight loss Eyes: Absent: change in vision Cardiovascular: Present: lightheadedness. Absent: palpitations, syncope Additional comments: chest tightness Respiratory: Present: dyspnea. Absent: cough, chest congestion Gastrointestinal: Present: nausea. Absent: abdominal pain, hematemesis, hematochezia, melena, vomiting Genitourinary: Absent: dysuria Musculoskeletal: Present: muscle weakness Neurological: Absent: loss of vision Hematologic/Lymphatic: Absent: easy bleeding Oncology - Exam - Constitutional Vitals: Temp Pulse Resp BP Pulse Ox 98.8 F 66 15 129/83 97 06/06/17 06:23 06/06/17 06:23 06/06/17 06:23 06/06/17 06:23 06/06/17 06:23 General appearance: cooperative, no acute distress, no febrile - Head Head exam: Present: atraumatic - Respiratory Respiratory exam: Present: CTAB. Absent: respiratory distress - Cardiovascular Cardiovascular exam: Present: RRR, +S1, +S2 - GI/Abdominal GI/Abdominal exam: Present: normal bowel sounds, soft. Absent: tenderness - Extremities Exam Extremities exam: Absent: calf tenderness, pedal edema - Neurological Exam Neurological exam: Present: alert, oriented X3, strengths equal and symetr throughout. Absent: no focal deficits - Psychiatric Psychiatric exam: Present: normal affect, normal mood - Skin Skin exam: Present: normal color, warm Oncology - Results Labs: Short CBC 06/06/17 Range/Units 01:42 WBC 4.9 (4.3-11.1) K/mcL Hgb 9.0 L D (11.5-15.4) g/dL Hct 30.1 L (35.3-44.9) % Plt Count 122 L (140-400) K/mcL Neutrophils # 3.2 (1.6-8.9) K/mcL BMP 06/06/17 01:42 Sodium 136 Potassium 3.8 Chloride 105 Carbon Dioxide 27 BUN 11 Creatinine 0.67 Glucose 114 H Calcium 8.8 Cardiac Enzymes 06/06/17 06/06/17 Range/Units 01:42 08:04 Troponin I < 0.03 < 0.03 (< 0.04) ng/mL Liver Function 06/06/17 Range/Units 01:42 Total Bilirubin 1.5 H (0.3-1.0) mg/dL AST 44 H (13-39) Units/L ALT 19 (7-52) Units/L Alkaline Phosphatase 44 (34-104) Units/L Albumin 3.6 (3.5-5.7) g/dL Consult Discharge Plan - Plan Instructions: Anemia (DC) Referrals: Jeffrey Canela MD [Primary Care Provider] - (Patient wishes to make her own PCP appt. Thank you) Leland Sinclair MD [Partnered Physician] - 06/24/17 3:55 pm Prescriptions: Iron SUCROSE Complex [Venofer] 200 mg IV DAILY 3 Days #30 mls <Mindy Da Silva - Last Filed: 06/09/17 08:40> Date of Encounter: 06/09/17 - Data of Consult Requesting Physician: Benjamín Aden Primary Care Provider: Jeffrey Canela MD - Consult Narrative History of present illness: Ms. Brown is a 51 year old female Oncology - Exam - Constitutional Vitals: Temp Pulse Resp BP Pulse Ox 99.2 F 74 15 127/86 98 06/06/17 15:38 06/06/17 15:38 06/06/17 15:38 06/06/17 15:38 06/06/17 15:38 - Attending Attestation Significant microcytic anemia hemoglobin 5 MCV 77. Most likely secondary to ongoing vaginal bleeding. She had 3 units of packed RBC transfusion and Venofer IV. B12 low at 232 and folate 5. B12 1000 g IM and folic acid 1 mg by mouth daily We will follow her as an outpatient and give more IV iron as needed and also B12 supplements. She missed a follow-up with FACILITY MAINTENANCE WORKER to address the vaginal bleeding. If anemia persists after vaginal bleeding resolves may consider colonoscopy
[2017-06-06 15:40] VITALS: BP 127/86
--- NOTE | 2017-06-06 16:23 | Discharge Summary ---
Date of Encounter: 06/06/17 Time of Encounter: 11:00 - Discharge Diagnosis (1) Symptomatic anemia Priority: Primary Status: Acute - Discharge Medications Prescriptions: Iron SUCROSE Complex [Venofer] 200 mg IV DAILY 3 Days #30 mls Home Medications: Levothyroxine [Synthroid] 112 mcg PO DAILY 06/06/16 [History] Cholecalciferol (D-3) [Vitamin D] 5,000 unit PO DAILY 06/05/17 [History] Ferrous Sulfate [Iron] 325 mg PO BID 06/05/17 [History] Naproxen Sodium [All Day Pain Relief] 220 mg PO DAILY PRN 06/05/17 [History] Ondansetron [Zofran] 8 mg PO DAILY PRN 06/05/17 [History] Iron SUCROSE Complex [Venofer] 200 mg IV DAILY 3 Days #30 mls 06/06/17 [Rx] Allergies/Adverse Reactions: 3 Allergy/AdvReac Type Severity Reaction Status Date / Time promethazine [From Phenergan] Allergy See Verified 06/05/17 13:45 Comments Sulfa (Sulfonamide AdvReac Nausea Verified 06/05/17 13:45 Antibiotics) Procedures/tests Complete & Pending: Procedures Performed prior 72 hours Category Date Time Status US pelvis extended [US] Routine Exams 06/06/17 13:00 Completed ECG 12 lead ECG [ECG] AM 0600 Y 06/06/17 06:00 Ordered Date of admission: 06/05/17 14:42 Primary care physician: Jeffrey Canela MD Consults: 06/05/17 20:43 Consult to Oncology Hematology [CONS] Routine Consulting Provider: Harley Apodaca Reason for Consult: anemia; pancytopenia Time Notified: 20:49 Call Completed: Yes - Patient Status Disposition: Home Health Service Condition: Fair - Discharge Instructions Follow Up With: Jeffrey Canela MD [Primary Care Provider] - (Patient wishes to make her own PCP appt. Thank you) Leland Sinclair MD [Partnered Physician] - 06/24/17 3:55 pm Hospital course: Patient is a 51-year-old female who presented to the ER on 06/05/17 with chest pain and dyspnea on exertion. In the ER, patient was found to be anemic with a hemoglobin of 5.1 and was admitted to the medical floor for further medical management. During patients hospital stay, her hemoglobin improved to 9.0 status post 3 units of packed red blood cells and her symptoms improved. Gynecology was consulted due to history of menorrhagia and pelvic ultrasound was ordered which showed a 1 cm submucosal solid lesion in the uterus, possibly a fibroid. Hematology/oncology was also consulted and notes anemia workup showed a significant iron deficit with iron saturations of 15 and 2% saturation with ferritin less than 8. Recommendations for patient to start Venofer infusions and to continue as an outpatient. Patient will also follow-up with [facility] [employer] TECHNICIAN in addition to hematology oncology as outpatient. Recommended the patient follow up of GI for colonoscopy; stool was negative. - Time Spent with Patient Total time spent providing and/or coordinating discharge services: Less than 30 minutes - Constitutional Vitals: Temp Pulse Resp BP Pulse Ox 99.2 F 74 15 127/86 98 06/06/17 15:38 06/06/17 15:38 06/06/17 15:38 06/06/17 15:38 06/06/17 15:38 General appearance: Present: cooperative, A&O X 3, pleasant, no acute distress, answers questions appropriately - Respiratory Respiratory exam: Present: CTAB. Absent: accessory muscle use, rales, rhonchi, wheezes - Cardiovascular Cardiovascular exam: Present: RRR, +S1, +S2. Absent: diastolic murmur, gallop, rubs, systolic murmur - VTE Reasons for not Prescribing Prophylaxis: Medical contraindication
--- NOTE | 2017-06-06 16:23 | Physician Discharge Referral ---
Home Health/Hosp Referral Info Transfer to: Home Health - Diagnosis (1) Symptomatic anemia Priority: Primary Status: Acute - Respiratory Orders Smoking Cessation: Smoking cessation has been advised. For more information, call the [place] Tobacco Quit Line at 0-760-IGAY-NOW. - Services Needed Following services are medically necessary services: Nursing, Home Infusion - Transfer Medications Prescriptions: Iron SUCROSE Complex [Venofer] 200 mg IV DAILY 3 Days #30 mls Home Medications: Levothyroxine [Synthroid] 112 mcg PO DAILY 06/06/16 [History] Cholecalciferol (D-3) [Vitamin D] 5,000 unit PO DAILY 06/05/17 [History] Ferrous Sulfate [Iron] 325 mg PO BID 06/05/17 [History] Naproxen Sodium [All Day Pain Relief] 220 mg PO DAILY PRN 06/05/17 [History] Ondansetron [Zofran] 8 mg PO DAILY PRN 06/05/17 [History] Iron SUCROSE Complex [Venofer] 200 mg IV DAILY 3 Days #30 mls 06/06/17 [Rx] Allergies/Adverse Reactions: 3 Allergy/AdvReac Type Severity Reaction Status Date / Time promethazine [From Phenergan] Allergy See Verified 06/05/17 13:45 Comments Sulfa (Sulfonamide AdvReac Nausea Verified 06/05/17 13:45 Antibiotics) Certification: Further, I certify that my clinical findings support that this patient is homebound (i.e. absences from home require considerable and taxing effort and are for medical reasons or shinto services or infrequently or short duration when for other reasons) because: Homebound Reason: Patient requires assistance of a person or device to safely leave home Attestation: My signature below is to certify that this patient is under my care and that I, or nurse practitioner, or a physician's property management assistant working with me, has a face-to -face encounter with this patient.
--- NOTE | 2017-06-06 16:31 | OB/GYN Progress Note ---
Date of Encounter: 06/06/17 Time of Encounter: 17:00 - Assessment and Plan (1) Symptomatic anemia Status: Acute Plan: - patient's symptoms are resolving as she now denies chest pain and dizziness - Vitals are stable. Hemoglobin 9.0 after 3 units of PRBC - Pelvic US showed 1 cm submucosal solid lesion in the uterus, possibly a fibroid. Therefore recommend outpatient f/u with Delmy BABIN for possible ablation and D/C within the next week. (2) Pancytopenia Status: Acute Hematology consulted. (3) Menorrhagia Status: Chronic Patient has a f/u appointment scheduled with Dr. Sinclair outpatient. hemoglobin stable. Qualifiers: Menorrahagia type: with irregular cycle Qualified Code(s): N92.1 - Excessive and frequent menstruation with irregular cycle Subjective - Subjective Principal diagnosis: anemia Interval history: Patient today says that she is not feeling chest pain anymore and her dizziness has resolved. She has been having BRIGHT and nausea since the transfusions. Denies any vaginal bleeding in the last 24 hrs. In reviewing her period history, patient does have irregular periods that sometimes occur every 7 days and sometimes closer to every 3-4 weeks. Patient states that she has softball size clots but this is not abnormal for her. A couple of months ago patient had a hemoglobin of 13 and she states that she has not noticed an increase in bleeding frequency or volume though than normal over the last couple of months. Hysterectomy and ablation have been recommended before but she has been unable to complete either of these due to either another surgery or physician leaving. Family hx of uterine cancer. Patient reports: no dizzy ambulation Objective - Vital Signs Latest vital signs: Vitals stable. - Exam Lungs: bilateral: normal Chest: Normal S1, Normal S2 Extremities: Present: normal. Absent: tenderness, edema Abdomen: Present: normal appearance, soft. Absent: tenderness - Labs Labs: Abnormal lab results Hgb 9.0 g/dL (11.5-15.4) L D 06/06/17 01:42 Hct 30.1 % (35.3-44.9) L 06/06/17 01:42 MCV 77.0 fL (83.0-100.0) L 06/06/17 01:42 MCH 23.0 pg (28.0-33.3) L 06/06/17 01:42 MCHC 29.9 g/dL (31.6-35.5) L 06/06/17 01:42 RDW 19.4 % (11.5-14.5) H 06/06/17 01:42 Plt Count 122 K/mcL (140-400) L 06/06/17 01:42 Nucleated RBCs/100 WBC 0.8 /100 WBC (0) H 06/06/17 01:42 Platelet Estimate Slight Decrease (Normal) L 06/05/17 12:45 Polychromasia 1+ (Not Present) A 06/05/17 12:45 Hypochromasia Present (Not Present) A 06/05/17 12:45 Anisocytosis 1+ (Not Present) A 06/05/17 12:45 Microcytosis Present (Not Present) A 06/05/17 12:45 Glucose 114 mg/dL (70-105) H 06/06/17 01:42 Total Bilirubin 1.5 mg/dL (0.3-1.0) H 06/06/17 01:42 AST 44 Units/L (13-39) H 06/06/17 01:42 Serum Total Protein 6.0 g/dL (6.4-8.9) L 06/06/17 01:42 Consult Discharge Plan - Plan Instructions: Anemia (DC) Referrals: Jeffrey Canela MD [Primary Care Provider] - (Patient wishes to make her own PCP appt. Thank you) Leland Sinclair MD [Partnered Physician] - 06/24/17 3:55 pm Prescriptions: Iron SUCROSE Complex [Venofer] 200 mg IV DAILY 3 Days #30 mls
[2017-06-06] MEDS ORDERED: Cyanocobalamin (B-12) 1,000 MCG/ML VIAL SQ ONE (17:55)
--- NOTE | 2017-06-07 09:29 | Electrocardiograph Report ---
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
== END 2017-06-06 18:27 | disposition home or self-care (01) | DRG 760 ==
LOC: EMEROO 12:29 → INTOOBSV 14:42 → 3ANU 14:42
PROVIDERS: ADMIT Hospitalist; ATTEND Hospitalist

== ENCOUNTER 2018-03-05 12:25 | Inpatient (IN) ==
[2018-03-05] MEDS ORDERED: Naloxone 0.4 MG/ML INJ IVP PRN (16:21)
[2018-03-05] MEDS ORDERED: 0.9 % Sodium Chloride 1,000 ML IVC SCH ×2 (16:30→21:00)
--- NOTE | 2018-03-05 16:33 | Internal Med History&Physical ---
<Camille Ness - Last Filed: 03/05/18 17:06> Internal Medicine - H&P: HPI History of present illness: Ms. Brown is a 52 year old female Internal Medicine - H&P: Meds Levothyroxine [Synthroid] 112 mcg PO DAILY 06/06/16 [History] Acetaminophen w/Cod 300-30 mg [Tylenol w/Codeine #3] 1 each PO Q6HR PRN 3 Days #12 tablet 02/25/18 [Rx] Cyanocobalamin/Cobamamide [Vitamin B-12 5,000 Mcg Tab Sl] 1 each SL DAILY 02/25/18 [History] Allergy/AdvReac Type Severity Reaction Status Date / Time promethazine [From Phenergan] Allergy See Verified 02/25/18 11:12 Comments codeine AdvReac Vomiting Verified 03/05/18 16:06 Sulfa (Sulfonamide AdvReac Nausea Verified 02/25/18 11:12 Antibiotics) All Systems PM: A 10-system review of systems was performed and is negative for pertinent findings except as documented above in the HPI. - Constitutional Vitals: Temp Pulse Resp BP Pulse Ox 97.9 F 104 22 128/82 97 03/05/18 16:26 03/05/18 16:26 03/05/18 16:26 03/05/18 16:26 03/05/18 16:26 - Time Spent With Patient Total time spent is greater than 50% in coordination of care (as documented) at patient's floor/unit and/or counseling patient: - Attending Attestation I examined this patient and my medical decision-making was reviewed with the Resident Physician Dr Hodge. I agree with the documented findings, disposition and treatment plan as described except to the extent set forth below/addl details below. Mrs Brown has pmhx GAGAN 2/2 uterin fibroids post hysterectomy, Hypothyroidism, gerd, kideny stones and hx recurrent utis, previously documented elevated BPs but no formal diagnosis or treatment for it, daily heavy etoh use (tequila and beer) She presented to [facility] 3 days n/v/ abd pain, found to be in svt vs afib rvr and transferred for further cardiac care. 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 Nausea, emesis, abd pain started 3 days ago, has had similar in past related to heavy etoh consumption. She admits to routine etoh, heavier than her usual and confirmed by family that she has been drinking constantly, not taking in food or other beverages. Denies hx etoh w/d , has gone days without drining in past, no hx DTs. Nausea + emesis, bilious emesis, with any oral intake. Abd pain aching bl UQs and epigastrium, non radiating. No exacerbating factors. No suspected aspiration with etoh intoxication and emesis. She notes a CT scan was done at [facility] though we have no record of it or report given [employer] being down for prolonged time. She was informed it was normal. amylase and lipase normal. Now having watery bms, no mucus, no blood, no melena. 3 episodes just today. no recent abx use. No chest pain, palpitations, sob, presyncope with afib/svt. No prior hx. Hx 1st degree avb in past with hypothyroidism. Has not taken synthroid in days d/t i nability to tolerate oral intake. Oncardizem gtt. got one time adenosine at [facility], then cardizem bolus and started on gtt. Hyperglycemia in 200s and no hx o diabetes. + increased thirst, polyuria, hx of hypoglycemia when not eating with etoh use. no a1c checked inpast. No CVD hx. gen- alert, awake,appears stated age eyes- pupils equal round , no conjunctival pallor, no scleral icterus cv- reg rate and irreg/irreg rhythm, normal s1,s2, no murmurs appreciated, no le edema lungs- ctabl, no wheezing, rhonchi or crackles, normal resp effort on ra abd- soft, tender bl UQ and epigastrium, no guarding or rigidity, non distended, + bs, possible HSM, no fluid wave skin- normal color, no pallor or jaundice, no rash or ecchymosis, warm dry neuro- AAOx3, CN grossly intact, no tremor Afib w/ RVR vs SVT, now rate controlled afib on cardizem gtt Rule out ischemia, rule outinfectious etiology, may e related to dehydration and metabolic disturbances including etoh use, agma, thyroid disease -ekg at [facility] appears to be svt in 200s and given one time adenosine 6mg per records, no apparent immediate ekg from afterwards -later repeat ekg appears rate controlled afib in 90s without ischemic changes, however, significant baseline artifact makes precordial leads difficult to interpret -tele, check lytes, IVFs , check echo, cards consult, ekg now, a1c, tsh, lipids to risk stratify -given high risk etoh w/d and ongoing work up cont cardizem gtt -await cards rec -regarding AC as chadsvasc is 1-2 (regarding previously documented bps but no dxor tx) and has bled 2--which makes her high risk for bleeding and stroke -given that anemia hx is from uterine fibroids and now hysterectomy with normal hgbs- begin lovenox therapeutic dosing, checking inr N/V/D/Abd Pain- suspect 2/2 etoh dependence/intoxication vs hyperglycemia (HHNK vs DKA) -ct a/p per family negative at [facility]- no record of it is available here- resident calling to confirm report verbally; ua neg for infection, amylase lipase nml there -stat labs include cmp, lipase, amylase, and hyperglycemia w/u, check stool stud ies -IVFs, clear liquids, anti emetics, prn pain control etoh dependence- ciwa scale, tele, check etoh level Hyperglycemia, no prior hx -check aic, bhb, UA + ketones and proteinuria -IVF bolus and maintenance fluids -accu checks and low correctional ssi AGMA, gap 16- check stat lactate, bhb, vbg, etoh level, ivfs, chem Elevated T bili 1.3 and hx elevated to 1.5 most recently in December, aST 50s- repeat cmp, ruq us given physical exam and etoh use Hypothyroidism- check tsh and give home synthroid, has missed multiple doses vte ppx - lovenox <Lopez Hodge - Last Filed: 03/05/18 20:50> Date of Encounter: 03/05/18 Time of Encounter: 16:30 Internal Medicine - H&P: HPI Chief complaint: nausea, vomiting, abdominal pain Admitted From: Hospital to Hospital Transfer Plans for Post Hospital Care: Home History of present illness: Ms. Brown is a 52 year old female PMHx hypothyroidism s/p thyroid nodule removal now on levothyroxine, GERD, kidney stones, uterine fibroids post hysterectomy, history of recurrent UTIs, previously elevated BPs not on antihypertensives, alcohol use (tequila and beer) is transferred from [facility] emergency room to [place] for Afib RVR, chest pain. She had presented to [facility] ed for 3 days of n /v/abdominal pain and diarrhea. Initial EKG with SVTs and HR 220s. She received dose of amiodarone and repeat EKG with Atrial fibrillation rate controlled with diltiazem. Unsure when diltiazem drip was started. Patient was eventually on 15ml/hr and currently rate controlled on 10ml/hr. CT abdomen/pelvis was obtained during [facility] down[facility] and not available. I called [facility] ED and and per nurse, CT results were: negative for obstructive uropathy, negative for intrapelvic obstruction, 1mm right sided kidney stone at lower pole, fatty infiltration of liver. Reviewed labs at [facility] ED presentation: Anion Gap: 26, Glucose 214, total bili 1.3 Amylase 42, lipase 33, troponin <0.03 x1, AST 53, ALT and Alk phop unremarkable. UA + ketones and blood, negative nitrites and leukocyte esterase. No previous HbA1c. Lactic acid and VBG was not obtained. Patient was admitted for new onset arrhythmia Afib vs SVT, elevated anion gap with hyperglycemia. At [place], patient continues to have complaints of nausea with some relief with Zofran. Daughter, Silvia, is at bedside. Patient confirms that she is a chronic drinker (> 7 drinks per week on average), only tequila and beer. She has had nausea, vomiting, and watery diarrhea for the last 4 days. She also admits to poor PO intake when she drinks, include the last 4 days. Denies history of alcohol withdrawal or DTs. Patient reports that she is unable to tolerate any PO intake, admits to polydypsia and polyuria. She has never been diagnosed with diabetes. Does have history of hypothyroidism s/p thyroid nodule removal, and she has missed her levothyroxine dose for the last 4 days due to nausea and inability to tolerate PO. She also reports that she usually has diarrhea when she drinks. Admits to dizziness, headaches, palpitations, right upper quadrant abdominal pain. Also admits to sharp chest pain on inspiration that does not radiate. Den ies trauma, fever, chills, nausea, vomiting, syncope, cough, SOB, new rashes, edema. Denies illicit drug use. Past Med Surg Social Fam HX - Past Medical History Medical history: arthritis, COPD, GERD, kidney stones, thyroid disease Additional medical history: hypothyroidism. dermatitis-scalp. mood disorder. lumbar pain. shingles. hx of Zoster. Psoriasis. Scleritis. HLA positive Titer- autoimmune disorder. parathyroid nodule Psychiatric history: depression - Past Surgical History Surgical History: sinus surgery, other Additional surgical history: umbilical hernia repair. trigger finger/cyst removed from hand. sinus -septoplasty-07/30. kidney stones removed x2 09/02. colonoscopy 07/25/17. parathyroidism removed on left side - Social History Smoking Status: Never smoker Smokeless Tobacco Status: No Alcohol use: none Drug use: none - Family History Grandmother Hx Family Cancer: Yes Mother Living Status: Still Living Hx Family Cardiac Disorders: Yes Hx Family Respiratory Disorders: No Hx Family Cancer: Yes Hx Family Endocrine Disorder: Yes Hx Family Autoimmune Disorders: Yes Hx Family Medical Disorders: Yes All Systems PM: A 10-system review of systems was performed and is negative for pertinent findings except as documented above in the HPI. - Constitutional Constitutional: as per HPI - EENT Eyes: as per HPI Nose, mouth and throat: as per HPI - Cardiovascular Cardiovascular ROS IM: as per HPI - Respiratory Respiratory: as per HPI - Gastrointestinal Gastrointestinal: as per HPI - Genitourinary Genitourinary: as per HPI - Integumentary Integumentary IM: as per HPI - Neurological Neurological ROS: as per HPI - Psychiatric Psychiatric: as per HPI - Endocrine Endocrine IM: as per HPI - Hematologic/Lymphatic Hematologic/Lymphatic: as per HPI - Constitutional Vitals: Temp Pulse Resp BP Pulse Ox 97.9 F 104 22 128/82 97 03/05/18 16:26 03/05/18 16:26 03/05/18 16:26 03/05/18 16:26 03/05/18 16:26 Exam: gen- alert, awake,appears stated age. In mild distress eyes- pupils equal round , no conjunctival pallor, no scleral icterus cv- rreg/irreg rhythm, no murmurs appreciated, no le edema lungs- ctabl, no wheezing, rhonchi or crackles, normal resp effort on ra abd- soft, tender RUQ and epigastrium, no guarding or rigidity, non distended, + bs, no fluid wave skin- normal color, no pallor or jaundice, no rash or ecchymosis, warm dry neuro- AAOx3, CN grossly intact, upper extremity tremors noted Internal Med - H&P Results - Labs CBC & Chem 7: 03/05/18 16:41 03/05/18 16:41 - Assessment and plan (1) DKA (diabetic ketoacidoses) Current Visit: Yes Status: Acute Assessment and plan: Patient presented with hyperglycemia (>200), anion gap = 26, ketonuria and +beta-hydroxybutyric acid. He received 3L NS at [facility] ED and current gap = 21. Another 1L bolus was given She has not been diagnosed with diabetes in the past. We will obtain stat HbA1c Magnesium 1.3, corrected calcium 7.5, both replenished. Potassium 4.0 and appears stable. Admit to ICU for DKA protocol and hypoglycemia treatment orders EPIV insertion Start insulin drip Recheck BMP q2 hours and monitor anion gap. glucose as needed. SQ insulin when gap closed and d/c insulin drip 1 hour after Keep patient on NPO Qualifiers: Qualified Code(s): E13.10 - Other specified diabetes mellitus with ketoacidosis without coma (2) Arrhythmia Current Visit: Yes Status: Acute Assessment and plan: New onset arrhythmia. SVT vs Afib with RVR. Patient with DKA and history of chronic alcohol use, both likely etiologies of new arrhythmia TSH elevated, hyperthyroidism unlikely, no further work-up required at this time Initial EKG with SVTs and HR >200. She received dose of amiodarone and diltiazem. Was started on diltiazem drip and repeat EKG with Atrial fibrillation, rate controlled <100 with cardizem drip 10ml/hr Patient has history of uterine bleed/anemia, multiple readings of HTN (not on antihypertensives). CHADSVASC = 2, HASBLED = [address] Marquez, cardiology, recommends Heparin drip. Patient received dose of Lovenox prior to recommendations. 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 CT abdomen negative for obstructive uropathy, negative for intrapelvic obstruction, 1mm right kidney stone at lower pole (non-obstructing), fatty infiltration of liver. N/V likely secondary to DKA Continue with Zofran Expect nausea and vomiting to improve as anion gap closes Qualifiers: Qualified Code(s): R11.2 - Nausea with vomiting, unspecified (4) Alcohol use Current Visit: Yes Status: Acute Assessment and plan: [facility] Patient admits to >7 drinks per week on average ativan as needed (5) Diarrhea Current Visit: Yes Status: Acute Assessment and plan: Likely 2/2 alcohol use, poor oral intake, DKA Will obtain GI panel to rule out other etiologies if diarrhea does not improve Qualifiers: Qualified Code(s): R19.7 - Diarrhea, unspecified (6) Hyperglycemia Current Visit: Yes Status: Acute Assessment and plan: f/u on HbA1c DKA protocol (7) Hypothyroid Current Visit: Yes Status: Acute Assessment and plan: Continue synthroid when appropriate Qualifiers: Qualified Code(s): E03.9 - Hypothyroidism, unspecified (8) Maternal AST (aspartate aminotransferase) elevation Current Visit: Yes Status: Acute Assessment and plan: liver ultrasound Patient had elevated direct bili at [facility] Will recheck with AM labs (9) DVT prophylaxis Current Visit: No Status: Acute Assessment and plan: Patient on Heparin drip - Time Spent With Patient Total time spent is greater than 50% in coordination of care (as documented) at patient's floor/unit and/or counseling patient: Greater than 35 minutes
[2018-03-05] MEDS ORDERED: 0.9 % Sodium Chloride 1,000 ML IVC ONE (16:49)
[2018-03-05 17:13] LABS: VBG HCO3 15 mEq/L (21-27); VBG PCO2 32 mmHg (41-51); VBG PH 7.29 pH Units (7.32-7.42); VBG PO2 141 mmHg (25-50)
[2018-03-05 17:14] LABS: Basophils % 0.2 %; Immature Granulocytes % 0.3 % (0-4); Mean Corpuscular Volume 98.8 fL (83.0-100.0); Red Cell Distribution Width 13.5 % (11.5-14.5)
[2018-03-05 17:16] LABS: Hematocrit 40.3 % (35.3-44.9); Hemoglobin 13.5 g/dL (11.5-15.4); Lymphocytes # 0.2 K/mcL (0.6-4.6); Lymphocytes % 3.4 %; Mean Corpuscular HGB Conc 33.5 g/dL (31.6-35.5); Mean Corpuscular Hemoglobin 33.1 pg (28.0-33.3); Mean Platelet Volume 10.1 fL (9.4-12.4); Monocytes # 0.4 K/mcL (0.0-1.3); Neutrophils # 5.9 K/mcL (1.6-8.9); Red Blood Count 4.08 M/mcL (3.82-4.97); Segmented Neutrophils % 90.1 %
[2018-03-05 17:20] LABS: Platelet Count 80 K/mcL (140-400)
[2018-03-05 17:23] LABS: INR 0.9; Prothrombin Time 10.5 Seconds (9.4-12.1)
[2018-03-05] MEDS: Ondansetron 4 MG/2 ML VIAL IVP PRN ×2 (17:48→22:29)
[2018-03-05] MEDS ORDERED: *HR* Enoxaparin 60 MG/0.6 ML SYRINGE SQ SCH (18:00)
[2018-03-05 18:06] LABS: Alanine Aminotransferase 17 Units/L (7-52); Albumin 3.8 g/dL (3.5-5.7); Albumin/Globulin Ratio 1.5 (1.1-2.2); Alkaline Phosphatase 58 Units/L (34-104); Aspartate Amino Transferase 55 Units/L (13-39); BUN/Creatinine Ratio 17 (6-26); Bilirubin,Total 0.9 mg/dL (0.3-1.0); Blood Urea Nitrogen 10 mg/dL (6-20); Calcium 7.3 mg/dL (8.6-10.3); Carbon Dioxide 15 mEq/L (23-29); Chloride 103 mEq/L (98-107); Globulin 2.5 g/dL (2.4-3.5); Glucose 170 mg/dL (70-105); Magnesium 1.3 mg/dL (1.6-2.6); Osmolality,Calculated 291 (280-300); Sodium 139 mEq/L (136-145); Total Protein 6.3 g/dL (6.4-8.9); eGFR For Non-African Americans > 60 (> 60)
[2018-03-05 18:19] LABS: Thyroid Stimulating Hormone 6.318 mcIU/mL (0.340-5.600)
[2018-03-05] MEDS ORDERED: D5% in Water 1,000 ML IVC PRN (18:51)
[2018-03-05] MEDS ORDERED: Dextrose Gel 15 GM/37.5 ML TUBE PO PRN ×2 (18:51)
[2018-03-05] MEDS ORDERED: *HR* Dextrose 50 % in Water (Syg) 50 ML SYRINGE IVP PRN ×4 (18:51→19:28)
[2018-03-05] MEDS ORDERED: D5% in 0.45% NACL w KCl 20 MEQ/1,000 ML MLS IVC PRN (19:03)
[2018-03-05] MEDS ORDERED: D5% in 0.45% NACL 1,000 ML IVC PRN (19:03)
[2018-03-05] MEDS ORDERED: Insulin Human Regular 100 UNIT in 0.9 % Sodium Chloride 100 ML IVC SCH (19:30)
[2018-03-05] MEDS ORDERED: *HR* LORazepam 2 MG/ML VIAL IVP PRN ×2 (19:34)
[2018-03-05] MEDS: Thiamine (B-1) 100 MG, Folic Acid 1 MG, MVI, adult with vitamin K 10 ML in 0.9 % Sodi... IVPB SCH (20:16)
[2018-03-05 20:38] LABS: BUN/Creatinine Ratio 15 (6-26); Blood Urea Nitrogen 8 mg/dL (6-20); Calcium 6.7 mg/dL (8.6-10.3); Carbon Dioxide 16 mEq/L (23-29); Chloride 105 mEq/L (98-107); Glucose 102 mg/dL (70-105); Osmolality,Calculated 285 (280-300); Potassium 4.5 mEq/L (3.5-5.1); Sodium 138 mEq/L (136-145); eGFR For Non-African Americans > 60 (> 60)
[2018-03-05] MEDS ORDERED: Insulin LISPRO 300 UNITS/3 ML VIAL SQ SCH (21:00)
[2018-03-05 22:39] LABS: Estimated Average Glucose 94 mg/dl; Hemoglobin A1C 4.9 %
[2018-03-05] MEDS: *HR* LORazepam 2 MG/ML VIAL IVP PRN (23:26)
[2018-03-05] MEDS: Insulin LISPRO 300 UNITS/3 ML VIAL SQ SCH (23:29)
[2018-03-06 01:29] LABS: BUN/Creatinine Ratio 13 (6-26); Blood Urea Nitrogen 7 mg/dL (6-20); Calcium 7.1 mg/dL (8.6-10.3); Carbon Dioxide 17 mEq/L (23-29); Chloride 106 mEq/L (98-107); Glucose 91 mg/dL (70-105); Osmolality,Calculated 282 (280-300); Potassium 3.5 mEq/L (3.5-5.1); Sodium 137 mEq/L (136-145); eGFR For Non-African Americans > 60 (> 60)
[2018-03-06] MEDS: Insulin LISPRO 300 UNITS/3 ML VIAL SQ SCH ×4 (03:43→17:23)
[2018-03-06 04:11] LABS: VBG Ionized Calcium 0.99 mmol/L (1.15-1.35)
[2018-03-06 04:24] LABS: Magnesium 1.6 mg/dL (1.6-2.6)
[2018-03-06 04:33] LABS: Chol/HDL Ratio 2.6 (0-4.9)
[2018-03-06] MEDS ORDERED: Heparin 25,000 UNIT/500 ML D5W 25,000 UNIT/500 ML BAG IVC SCH (05:00)
[2018-03-06] MEDS ORDERED: *HR* Heparin 5,000 UNIT/ML VIAL IVP PRN ×2 (05:00)
[2018-03-06] MEDS ORDERED: *HR* Heparin 5,000 UNIT/ML VIAL IVP ONE (05:00)
[2018-03-06 05:48] LABS: Phosphorous < 1.0 mg/dL (2.7-4.5)
[2018-03-06 07:12] LABS: BUN/Creatinine Ratio 12 (6-26); Blood Urea Nitrogen 6 mg/dL (6-20); Calcium 7.5 mg/dL (8.6-10.3); Carbon Dioxide 16 mEq/L (23-29); Chloride 105 mEq/L (98-107); Glucose 84 mg/dL (70-105); Osmolality,Calculated 277 (280-300); Potassium 3.5 mEq/L (3.5-5.1); Sodium 135 mEq/L (136-145); eGFR For Non-African Americans > 60 (> 60)
[2018-03-06] MEDS ORDERED: Insulin LISPRO 300 UNITS/3 ML VIAL SQ SCH (07:30)
--- NOTE | 2018-03-06 07:51 | Internal Med Progress Note ---
<Camille Ness - Last Filed: 03/06/18 16:21> Hospitalist Progress Note - Exam Vitals: Temp Pulse Resp BP Pulse Ox 98.4 F 86 18 115/81 99 03/06/18 08:00 03/06/18 12:02 03/06/18 12:02 03/06/18 12:02 03/06/18 12:02 - Time Spent with Patient Total time spent is greater than 50% in coordination of care (as documented) at patient's floor/unit and/or counseling patient: Internal Medicine: Result - Labs CBC & Chem 7: 03/05/18 16:41 03/06/18 06:45 Labs: Short CBC 03/05/18 Range/Units 16:41 WBC 6.5 (4.3-11.1) K/mcL Hgb 13.5 D (11.5-15.4) g/dL Hct 40.3 (35.3-44.9) % Plt Count 80 L (140-400) K/mcL Neutrophils # 5.9 (1.6-8.9) K/mcL BMP 03/05/18 03/05/18 03/06/18 16:41 20:00 00:45 Sodium 139 138 137 Potassium 4.0 4.5 3.5 Chloride 103 105 106 Carbon Dioxide 15 L 16 L 17 L BUN 10 8 7 Creatinine 0.60 0.53 L 0.55 L Glucose 170 H 102 91 Calcium 7.3 L 6.7 L 7.1 L 03/06/18 06:45 Sodium 135 L Potassium 3.5 Chloride 105 Carbon Dioxide 16 L BUN 6 Creatinine 0.50 L Glucose 84 Calcium 7.5 L Cardiac Enzymes 03/05/18 03/05/18 03/06/18 Range/Units 16:41 21:45 03:55 Troponin I 0.03 0.09 H* 0.07 H* (< 0.04) ng/mL Liver Function 03/05/18 03/06/18 Range/Units 16:41 03:55 Total Bilirubin 0.9 (0.3-1.0) mg/dL Direct Bilirubin 0.1 (0.0-0.2) mg/dL AST 55 H (13-39) Units/L ALT 17 (7-52) Units/L Alkaline Phosphatase 58 (34-104) Units/L Albumin 3.8 (3.5-5.7) g/dL - ABG Interpretation ABG results: PT/INR, D-dimer PT 10.5 Seconds (9.4-12.1) 03/05/18 16:41 - Impressions Impressions Chest X-Ray 03/05/18 16:06 IMPRESSION: Normal portable chest. D/ / Clif Keen MD / Clif Keen MD Interpreting Provider: Clif Keen MD Echocardiogram 03/05/18 16:30 Impressions: LVEF 65-70%. Normal LV chamber size, wall thickness and function. Normal right ventricular structure and function. No significant valvular dysfunction. Liver Ultrasound 03/05/18 19:00 IMPRESSION: No acute sonographic abnormality. Suspected small upper pole right renal pelvic stone. D/ / Marianne Ruiz Cha, MD / Marianne Ruiz Cha, MD Interpreting Provider: Marianne Ruiz Cha, MD Consult Discharge Plan - Plan Instructions: Chest Pain (DC), Anemia (GEN) Referrals: Jeffrey Canela MD [Primary Care Provider] - - Attending Attestation I examined this patient and my medical decision-making was reviewed with the Resident Physician Dr Hodge. I agree with the documented findings, disposition and treatment plan as described except to the extent set forth below/addl details below. Mrs Brown was admitted with new onset arrhythmia, svt , in setting of 3d nausea/emesis/abd pain with heavy etoh use. awake, present. abd pain same region, somehwat improved. + nausea but no emesis, no diarrhea, fevers or chills. denies tremor, palpitations, cp, presyncope. gen- alert, awake,appears stated age eyes- pupils equal round , no conjunctival pallor, no scleral icterus cv- reg rate and rhythm, normal s1,s2, no murmurs appreciated, no le edema lungs- ctabl, no wheezing, rhonchi or crackles, normal resp effort on ra abd- soft, tender bl UQ and epigastrium, no guarding or rigidity, non distende d, + bs skin- normal color, no pallor or jaundice neuro- AAOx3, CN grossly intact, no tremor SVT, resolved Now normal sinus rhythm no aCS, likely related to dehydration and metabolic disturbances including etoh use, agma -ekg at [facility] appears to be svt in 200s and given one time adenosine 6mg per records, no apparent immediate ekg from afterwards -repeat ekgs without ischemic changes -TTE 03/05/18: LVEF 65-70%, no significant valvular dysfunction, normal wall motion. -now off cardizem gtt and cards transitioned to PO cardizem -managing electrolyte abnormlities, IVFs -she was started on hep gtt by cards last night, now since dcd -she will fu with Dr Carlton in 6 weeks Elevated Troponin, suspect dynamic elevation in setting of SVT, low liklihood acs -cards does nto rec further inpt testing N/V/D/Abd Pain, improving- suspect 2/2 etoh dependence/intoxication vs hyperglycemia/starvation ketosis/agma -ct a/p at [facility] without acute etiology ua neg for infection, amylase lipase wnl -RUQ US unremarkable -IVFs, anti emetics, prn pain control, adat etoh dependence-~6 beers/day, 10-15 shots of tequila/day. -ciwa scale, tele, thiamine/folate/mvi -etoh level neg on admit but had drank that day? -high risk etoh withdrawal Hyperglycemia (glc 200s at [facility]), no prior hx--initally with bhb elevation, ketone in urine and AGMA suspected pt may have DKA -while awaiting A1C DKA orders were placed and pt transferred to ICU -bs returned to normal with IVFs and no insulin gtt was required, d/w pharmacy and despite low bicarb other labs did not clinically indicate her for need for bicarb infusion per the protocol -a1c resulted 4.9 -acidosis more likely starvation related possibly, see agma below AGMA, mild, persistent- consulted nephro for further input on cause and treatment, started on bicarb infusion, will fu further recs Hypophosphatemia- IV repletion and monitor Hypocalcemia- IV repletion and monitor Elevated T bili 1.3 and hx elevated to 1.5 most recently in [place], aST 50s- repeat cmp, ruq us given physical exam and etoh use Hypothyroidism- checked tsh-6s and give home synthroid, has missed multiple doses <Lopez Hodge - Last Filed: 03/06/18 17:27> Hospitalist Progress Note - Encounter Date of Encounter: 03/06/18 Time of Encounter: 14:00 - Subjective Interval History: 52F PMHx hypothyroidism s/p thyroid nodule removal now on levothyroxine, GERD, kidney stones, uterine fibroids post hysterectomy, history of recurrent UTIs, previously elevated BPs not on antihypertensives, alcohol use (tequila and beer) is transferred from [facility] emergency room to [place] for Afib RVR, chest pain. She had presented to [facility] ed for 3 days of n/v/abdominal pain and diarrhea. Initial EKG with SVTs and HR 220s. She received dose of adenosine and repeat EKG with atrial fibrillation rate controlled with diltiazem. Unsure when diltiazem drip was started. Patient was eventually on 15ml/hr and transferred to [place] with 10ml/hr. Admitted for anion gap metabolic acidosis, atrial fibrillation with RVR, chronic alcohol use. Today, patient is doing better. She reports that her chest pain, nausea, vomiting, abdominal pain has improved. She had not had a BM, but voiding without difficulty. She denies confusion, dizziness, but does feel weak and fatigued. She is worried about hospitalization stay due to being her workplace. Patient is requesting to be discharged with "something" for her withdrawal symptoms when ready. Of note, patient reports visual and auditory hallucinations last night that required dose of ativan. She is tolerating PO intake and has eaten 1/4 of gelatin. She requests for full liquid diet for better taste. Denies current auditory or visual hallucinations, denies SI/HI. - Exam Vitals: Temp Pulse Resp BP Pulse Ox 98.3 F 85 20 115/82 95 03/06/18 03:34 03/06/18 06:00 03/06/18 06:00 03/06/18 06:00 03/06/18 06:00 Exam: General- alert, awake,appears stated age. NAD eyes- pupils equal round , no conjunctival pallor, no scleral icterus cv- RRR, no murmurs lungs- ctabl, no wheezing, rhonchi or crackles, normal resp effort on RA abd- soft, tender RUQ and epigastrium, no guarding or rigidity, non distended, + bs, no fluid wave skin- normal color, no pallor or jaundice, no rash or ecchymosis, warm dry neuro- AAOx3, CN grossly intact, upper extremity tremors noted. Improved from yesterday. - Assessment and Plan (1) High anion gap metabolic acidosis Current Visit: Yes Status: Acute Assessment and Plan: Likely secondary to alcohol use vs poor oral intake Patient presented with hyperglycemia (>200), anion gap = 26, ketonuria and +beta-hydroxybutyric acid. He received 4L IVF since admission Started IV insulin in the ICU, Anion gap improving Patient was successfully transitioned to SQ Insulin Patient denied methanol use, kidney function WNL and baseline, HbA1c= 4.9, no leukocytosis, denied aspirin use Currently, anion gap = 14, hypophosphatemia, hypocalcemia Nephrology consulted. Agreed AGMA likely due to alcohol use, electrolyte loses, diarrhea. Started on Bicarb infusion Continue with electrolyte replacement as needed. BMP now. Chem10 in the morning. Qualifiers: Qualified Code(s): E13.10 - Other specified diabetes mellitus with ketoacidosis without coma (2) SVT (supraventricular tachycardia) Current Visit: Yes Status: Acute Assessment and plan: Initial EKG with SVTs and HR >200. She received dose of adenosine and was s tarted on diltiazem drip at [facility] Patient has history of uterine bleed/anemia, multiple readings of HTN (not on antihypertensives). CHADSVASC = 2, HASBLED = 2 Per cardiology, this is SVT repeat EKG overnight is NSR TTE 03/05/18: LVEF 65-70%, no significant valvular dysfunction, normal wall motion. Heparin drip was discontinued, started on VTE prophylaxis Started on low dose cardizem 120mg PO daily. Outpatient follow up with cardiology in 6 weeks. Continue plan as above Cardiology recommendations appreciated Qualifiers: Qualified Code(s): I49.9 - Cardiac arrhythmia, unspecified (3) Nausea and vomiting Current Visit: Yes Status: Acute Assessment and plan: Called [facility] ED. CT abdomen negative for obstructive uropathy, negative for intrapelvic obstruction, 1mm right kidney stone at lower pole (non-obstructing), fatty infiltration of liver. Continue with Zofran Expect nausea and vomiting to improve as anion gap closes Qualifiers: Qualified Code(s): R11.2 - Nausea with vomiting, unspecified (4) Alcohol use Current Visit: Yes Status: Acute Assessment and plan: [facility] Patient admits to >7 drinks per week on average ativan as needed (5) Diarrhea Current Visit: Yes Status: Acute Assessment and plan: Likely 2/2 alcohol use, poor oral intake. Improved today Qualifiers: Qualified Code(s): R19.7 - Diarrhea, unspecified (6) Hyperglycemia Current Visit: Yes Status: Acute Assessment and plan: SSI (7) Hypothyroid Current Visit: Yes Status: Acute Assessment and plan: Continue synthroid Qualifiers: Qualified Code(s): E03.9 - Hypothyroidism, unspecified (8) Maternal AST (aspartate aminotransferase) elevation Current Visit: Yes Status: Acute Assessment and plan: liver ultrasound is unremarkable direct Bili normal likely secondary to alcohol use no further acute intervention required DVT Prophylaxis: SubQ Heparin - Time Spent with Patient Total time spent is greater than 50% in coordination of care (as documented) at patient's floor/unit and/or counseling patient: Greater than 35 minutes Plan of Care Discussed with: patient Internal Medicine: Result - Labs CBC & Chem 7: 03/05/18 16:41 03/06/18 06:45 Labs: Short CBC 03/05/18 Range/Units 16:41 WBC 6.5 (4.3-11.1) K/mcL Hgb 13.5 D (11.5-15.4) g/dL Hct 40.3 (35.3-44.9) % Plt Count 80 L (140-400) K/mcL Neutrophils # 5.9 (1.6-8.9) K/mcL BMP 03/05/18 03/05/18 03/06/18 16:41 20:00 00:45 Sodium 139 138 137 Potassium 4.0 4.5 3.5 Chloride 103 105 106 Carbon Dioxide 15 L 16 L 17 L BUN 10 8 7 Creatinine 0.60 0.53 L 0.55 L Glucose 170 H 102 91 Calcium 7.3 L 6.7 L 7.1 L 03/06/18 06:45 Sodium 135 L Potassium 3.5 Chloride 105 Carbon Dioxide 16 L BUN 6 Creatinine 0.50 L Glucose 84 Calcium 7.5 L Cardiac Enzymes 03/05/18 03/05/18 03/06/18 Range/Units 16:41 21:45 03:55 Troponin I 0.03 0.09 H* 0.07 H* (< 0.04) ng/mL Liver Function 03/05/18 03/06/18 Range/Units 16:41 03:55 Total Bilirubin 0.9 (0.3-1.0) mg/dL Direct Bilirubin 0.1 (0.0-0.2) mg/dL AST 55 H (13-39) Units/L ALT 17 (7-52) Units/L Alkaline Phosphatase 58 (34-104) Units/L Albumin 3.8 (3.5-5.7) g/dL - ABG Interpretation ABG results: PT/INR, D-dimer PT 10.5 Seconds (9.4-12.1) 03/05/18 16:41 - Impressions Impressions Chest X-Ray 03/05/18 16:06 IMPRESSION: Normal portable chest. D/ / Clif Keen MD / Clfi Keen MD Interpreting Provider: Clif Keen MD Liver Ultrasound 03/05/18 19:00
--- NOTE | 2018-03-06 09:42 | Nephrology Consult Note ---
Date of Encounter: 03/06/18 Time of Encounter: 09:14 Assessment and Plan (1) Electrolyte abnormality Current Visit: Yes Status: Acute Patient has multiple electrolyte abnormalities including a mild anion gap acidosis, hypophosphatemia, hypocalcemia. This is likely related to her chronic alcohol use along with 3-4 days of nausea and vomiting with occasional diarrhea and ongoing alcohol use in the face of decreased food consumption. At this time I recommend aggressive electrolyte replacement. I will add a bicarbonate drip for 1 L. If her electrolyte abnormalities continue then I will investigate further. (2) Alcohol use Current Visit: Yes Status: Acute Defer to primary team. Patient likely needs CIWA. (3) Hypothyroid Current Visit: Yes Status: Acute Resume home thyroid supplementation. Qualifiers: Qualified Code(s): E03.9 - Hypothyroidism, unspecified (4) Nausea and vomiting Current Visit: Yes Status: Acute Likely gastritis, however with a history of alcohol use and ongoing abdominal discomfort I recommend a GI consultation. Patient described 1 episode of melena. Qualifiers: Qualified Code(s): R11.2 - Nausea with vomiting, unspecified (5) Atrial fibrillation with rapid ventricular response Current Visit: No Status: Acute Rate is currently controlled. Defer to primary team. History of Present Illness - Reason for Consult Consult date: 03/06/18 hyponatremia - Chief Complaint Altered Electrolytes - History of Present Illness Ms. Madrigal is a 52-year-old woman with a history of regular alcohol use who presents as a transfer from an outside facility for evaluation of gastritis in nature fibrillation with rapid ventricular rate. Nephrology was consult is seco ndary to electrolyte derangements. The patient reports that for 3-4 days prior to her going to the outside facility she was having problems with abdominal pain, nausea, vomiting and occasional diarrhea. While the patient would not eat she continued to consume alcohol until the day of admission when she cannot tolerate liquids. When she went to the ER she developed atrial fibrillation with rapid ventricular rate and was given adenosine followed by a Cardizem drip. The patient specifically denies feeling depressed or wanting to harm herself. She states she was drinking regular alcohol and did not consume anything such as ethylene glycol. She states she is feeling a little bit better, but is quite weak. Past Med Surg Social Fam HX - Past Medical History Medical history: arthritis, COPD, GERD, kidney stones, thyroid disease Additional medical history: hypothyroidism. dermatitis-scalp. mood disorder. lumbar pain. shingles. hx of Zoster. Psoriasis. Scleritis. HLA positive Titer- autoimmune disorder. parathyroid nodule Psychiatric history: depression - Past Surgical History Surgical History: sinus surgery, other Additional surgical history: umbilical hernia repair. trigger finger/cyst rem mal from hand. sinus -septoplasty-07/30. kidney stones removed x2 09/02. colonoscopy 07/25/17. parathyroidism removed on left side - Social History Smoking Status: Never smoker Smokeless Tobacco Status: No Alcohol use: none Drug use: none - Family History Grandmother Hx Family Cancer: Yes Mother Living Status: Still Living Hx Family Cardiac Disorders: Yes Hx Family Respiratory Disorders: No Hx Family Cancer: Yes Hx Family Endocrine Disorder: Yes Hx Family Autoimmune Disorders: Yes Hx Family Medical Disorders: Yes Medications and Allergies Levothyroxine [Synthroid] 112 mcg PO DAILY 06/06/16 [History] Cyanocobalamin/Cobamamide [Vitamin B-12 5,000 Mcg Tab Sl] 1 each SL DAILY 02/25/18 [History] Docusate [Colace] 100 mg PO BID PRN 03/06/18 [History] Pantoprazole Sodium [Protonix] 40 mg PO DAILY 03/06/18 [History] Allergy/AdvReac Type Severity Reaction Status Date / Time promethazine [From Phenergan] Allergy See Verified 02/25/18 11:12 Comments codeine AdvReac Vomiting Verified 03/05/18 16:06 Sulfa (Sulfonamide AdvReac Nausea Verified 02/25/18 11:12 Antibiotics) Review of Systems All Systems: reviewed and no additional remarkable complaints except as stated (As documented in history of present illness.) Exam - Vital Signs Vital signs: Initial Vital Signs Temp Pulse Resp BP Pulse Ox 97.9 F 104 22 128/82 97 03/05/18 16:26 03/05/18 16:26 03/05/18 16:26 03/05/18 16:26 03/05/18 16:26 Vital Signs - Last 8 Hours Temp Pulse Resp BP Pulse Ox 03/06/18 08:00 98.4 F 03/06/18 06:00 85 20 115/82 95 03/06/18 05:00 88 24 95/64 94 03/06/18 04:00 78 14 93/65 95 03/06/18 03:34 98.3 F 03/06/18 03:00 83 22 111/80 96 03/06/18 02:00 72 18 106/73 97 Intake and Output 03/05/18 03/06/18 03/06/18 23:59 07:59 15:59 Intake Total 1238 / 1238 736.2 / 736.2 204 / 204 Output Total 500 / 500 400 / 400 Balance 738 / 738 336.2 / 336.2 204 / 204 Intake: IV Fluids 1238 / 1238 736.2 / 736.2 204 / 204 0.9 % Sodium Chloride 1,000 ML 1000 / 1000 @ 999 mls/hr IVC .Q1H1M ONE Rx# :[id number] Cardizem 50 MG In 0.9 % Sodium 24 / 24 15 / 15 Chloride 40 ML @ 10 MG/HR 10 mls/hr IVC .Q5H [facility] Rx#: [id number] Calcium Gluconate 1,000 MG In 0 110 / 110 110 / 110 .9 % Sodium Chloride 100 ML @ 220 mls/hr IVPB Q6HR PRN Rx#: [id number] Magnesium Sulfate 2 GM In 0.9 % 104 / 104 104 / 104 Sodium Chloride 100 ML @ 52 mls/hr IVPB Q6H PRN Rx#: [id number] Potassium Chloride 10 mEq/100mL 100 / 100 100 / 100 10 meq In 100 ml @ 100 mls/hr IVPB Q1H PRN Rx#:[id number] Vitamin B-1 100 MG Folvite 1 MG 511.2 / 511.2 M.v.i. Adult 10 ml In 0.9 % Sodium Chloride 500 ML @ 85.2 mls/hr IVPB DAILY@1800 [facility] Rx#: [id number] Oral 0 / 0 Output: Urine 500 / 500 400 / 400 Other: Weight 54.8 kg Blood Glucose* 91 78 80 - General Appearance General appearance: well-developed, well-nourished EENT: ATNC Neck: supple Respiratory: clear Cardiology: no edema, regular rate, regular rhythm Gastrointestinal: no tenderness Integumentary: warm and dry Neurologic: alert and oriented x3 Musculoskeletal: no cyanosis Psychiatric: mood/affect appropriate Results - Lab Results 03/05/18 16:41 03/06/18 06:45 Most recent lab results Calcium 7.5 mg/dL (8.6-10.3) L 03/06/18 06:45 Phosphorus < 1.0 mg/dL (2.7-4.5) L* 03/06/18 03:55 Magnesium 1.6 mg/dL (1.6-2.6) 03/06/18 03:55 Consult Discharge Plan - Plan Instructions: Chest Pain (DC), Anemia (GEN) Referrals: Jeffrey Canela MD [Primary Care Provider] -
[2018-03-06] MEDS ORDERED: Sodium Bicarbonate 75 MEQ in 0.45 % Sodium Chloride 1,000 ML IVC SCH (10:00)
--- NOTE | 2018-03-06 10:13 | Cardiology Consult Note ---
<Kady Dumont Shruti - Last Filed: 03/06/18 10:21> Date of Encounter: 03/06/18 Time of Encounter: 09:30 Assessment and Plan (1) SVT (supraventricular tachycardia) Current Visit: Yes Status: Acute Patient presented to the ED with abdominal pain, metabolic derangement in the setting of heavy/chronic ETOH abuse. Reviewed telemetry, ECG, and strips (after adenosine); this is SVT. Has remained in NSR overnight, HR 82 upon exam. Continue to correct electrolytes accordingly, Nephrology consulted and following. TTE 03/05/18: LVEF 65-70%, no significant valvular dysfunction, normal wall motion. Will stop IV heparin gtt; start VTE prophylaxis dose. Start low dose Cardizem LA 120 mg daily. Will arrange for outpatient follow-up with Dr. Carlton in 6 weeks. (2) Alcohol use Current Visit: Yes Status: Acute CIWA protocol. Appears anxious at bedside. Reports last drink >24 hours ago. Heavy ETOH abuse with ~6 beers/day, 10-15 shots of tequila/day. Recommend close inpatient monitoring of symptoms. Defer further mgmt to ICU team. (3) Elevated troponin Current Visit: Yes Status: Acute Mild adynamic troponin elevation in the setting of SVT with HR>200. Doubt ACS. Chest pain resolved with HR improvement. No recurrence. TTE shows preserved LVEF with normal wall motion. No further testing recommended as inpt. Discussion w patient/family: The assessment and plan as outlined above was discussed with the patient and/or family members who expressed understanding and agreement. All questions were answered. Thank you for involving us in the care of your patient. Please call with any questions. The patient will be discussed and reviewed with Dr. Catalino Carlton; changes to be made accordingly. History of Present Illness Consult date: 03/06/18 Requesting physician: Lopez Hodge Consult reason: Afib Chief complaint: Abdominal pain History of present illness: Ms. Brown is a 52 year old female with PMHx significant for hypothyroidism, familial HLD who presented to [place] ED with 3-day history of worsening abdominal pain associated with nausea, vomiting, and anorexia. Reports poor po intake (aside from ETOH) for the past 3-4 days. Reports chronic ETOH abuse of ~6 beers/day and 10-15 shots of tequila per day for at least the past 4 years. Associated symptoms include chest discomfort which occurred prior to ED presentation. Upon arrival to [place] ED, ECG demonstrated SVT (215 BPM), she was given cardizem bolus without improvement and then 6 mg adenosine. She converted to NSR and was sent to [facility] for further evaluation. She was also noted to have significant electrolyte/metabolic derangement. Past Med Surg Social Fam HX - Past Medical History Attestation: Yes The following information was validated with the patient. Source: patient Medical history: arthritis, COPD, GERD, kidney stones, thyroid disease Additional medical history: hypothyroidism. dermatitis-scalp. mood disorder. lumbar pain. shingles. hx of Zoster. Psoriasis. Scleritis. HLA positive Titer- autoimmune disorder. parathyroid nodule Psychiatric history: depression - Past Surgical History Surgical History: sinus surgery, other Additional surgical history: umbilical hernia repair. trigger finger/cyst remov ed from hand. sinus -septoplasty-07/30. kidney stones removed x2 09/02. colonoscopy 07/25/17. parathyroidism removed on left side - Social History Smoking Status: Never smoker Smokeless Tobacco Status: No Alcohol use: none Drug use: none - Family History Grandmother Hx Family Cancer: Yes Mother Living Status: Still Living Hx Family Cardiac Disorders: Yes Hx Family Respiratory Disorders: No Hx Family Cancer: Yes Hx Family Endocrine Disorder: Yes Hx Family Autoimmune Disorders: Yes Hx Family Medical Disorders: Yes Father Living Status: Still Living Hx Family Cardiac Disorders: Yes (HLD) Medications and Allergies Levothyroxine [Synthroid] 112 mcg PO DAILY 06/06/16 [History] Cyanocobalamin/Cobamamide [Vitamin B-12 5,000 Mcg Tab Sl] 1 tab SL DAILY 02/25/18 [History] Docusate [Colace] 100 mg PO BID PRN 03/06/18 [History] Pantoprazole Sodium [Protonix] 40 mg PO DAILY 03/06/18 [History] Allergy/AdvReac Type Severity Reaction Status Date / Time promethazine [From Phenergan] Allergy See Verified 02/25/18 11:12 Comments codeine AdvReac Vomiting Verified 03/05/18 16:06 Sulfa (Sulfonamide AdvReac Nausea Verified 02/25/18 11:12 Antibiotics) All Systems Review: The remainder of the systems were reviewed and are negative - Cardiovascular Cardiovascular: as per HPI Physical Examination Vital Signs, Last 4 Hours Temp Pulse Resp BP Pulse Ox 03/06/18 08:00 98.4 F 84 20 117/84 98 General: Conversant, Other (thin, anxious appearing) HEENT: Atraumatic, Normocephaly Cardiac: Reg Rate and Rhythm, Normal S1 and S2 Lungs: Normal Breath Sounds Neuro: Alert and responsive Abdomen: Soft Skin: No rashes noted on visualized skin Musculoskeletal: No Chest Wall Tenderness Extremities: No Edema, Normal Pulses Results 03/05/18 16:41 03/06/18 06:45 Lab Results 03/05/18 03/05/18 03/05/18 16:41 16:41 16:41 WBC 6.5 Hgb 13.5 D Hct 40.3 Plt Count 80 L INR Sodium 139 Potassium 4.0 Chloride 103 Carbon Dioxide 15 L BUN 10 Creatinine 0.60 Glucose 170 H Calcium 7.3 L Magnesium 1.3 L Total Bilirubin 0.9 AST 55 H ALT 17 Alkaline Phosphatase 58 Troponin I 0.03 TSH 6.318 H 03/05/18 03/05/18 03/05/18 16:41 20:00 21:45 WBC Hgb Hct Plt Count INR 0.9 Sodium 138 Potassium 4.5 Chloride 105 Carbon Dioxide 16 L BUN 8 Creatinine 0.53 L Glucose 102 Calcium 6.7 L Magnesium Total Bilirubin AST ALT Alkaline Phosphatase Troponin I 0.09 H* TSH 03/06/18 03/06/18 03/06/18 00:45 03:55 03:55 WBC Hgb Hct Plt Count INR Sodium 137 Potassium 3.5 Chloride 106 Carbon Dioxide 17 L BUN 7 Creatinine 0.55 L Glucose 91 Calcium 7.1 L Magnesium 1.6 Total Bilirubin AST ALT Alkaline Phosphatase Troponin I 0.07 H* TSH 03/06/18 06:45 WBC Hgb Hct Plt Count INR Sodium 135 L Potassium 3.5 Chloride 105 Carbon Dioxide 16 L BUN 6 Creatinine 0.50 L Glucose 84 Calcium 7.5 L Magnesium Total Bilirubin AST ALT Alkaline Phosphatase Troponin I TSH Active Medications Dextrose/Water (Dextrose 50% (Syg)) 25 ml IVP AD PRN PRN Reason: Hypoglycemia Stop: 09/04/18 18:52 Dextrose/Water (Dextrose 50% (Syg)) 25 ml IVP Q15MIN PRN PRN Reason: Hypoglycemia Stop: 09/04/18 19:04 Diltiazem HCl (Cardizem Cd) 120 mg PO DAILY MELANIE Stop: 09/05/18 10:16 Glucagon (Glucagen) 1 mg IM ONCE PRN PRN Reason: Hypoglycemia Stop: 09/04/18 18:52 Glucose (Gluctose) 15 gm PO ONCE PRN PRN Reason: Hypoglycemia Stop: 09/04/18 18:52 Glucose (Gluctose) 30 gm PO ONCE PRN PRN Reason: Hypoglycemia Stop: 09/04/18 18:52 Heparin Sodium (Porcine) (Heparin) 5,000 unit SQ Q12HCO [facility] Stop: 09/05/18 18:01 Thiamine HCl 100 mg/ Folic Acid 1 mg/ Multivitamins 10 ml / Sodium Chloride 511.2 mls @ 85.2 mls/hr IVPB DAILY@1800 [facility] Stop: 03/07/18 23:59 Last Infusion: 03/06/18 02:16 Dose: Infused Dextrose (Dextrose 5%) 1,000 mls @ 100 mls/hr IVC .Q10H PRN PRN Reason: HYPOGLYCEMIA Stop: 09/04/18 18:52 Calcium Gluconate 1,000 mg/ (Sodium Chloride) 110 mls @ 220 mls/hr IVPB Q6HR PRN PRN Reason: Hypocalcemia Stop: 09/05/18 04:23 Last Infusion: 03/06/18 06:30 Dose: Infused Magnesium Sulfate 2 gm/ Sodium (Chloride) 104 mls @ 52 mls/hr IVPB Q6H PRN PRN Reason: hypomagnesemia Stop: 09/05/18 04:23 Last Infusion: 03/06/18 08:52 Dose: Infused Potassium Chloride (Potassium Chloride 10 Meq/100ml) 10 meq in 100 mls @ 100 mls/hr IVPB Q1H PRN PRN Reason: Potassium less than 4 Stop: 09/05/18 04:23 Last Admin: 03/06/18 06:42 Dose: 100 mls/hr Sodium Phosphate 30 mmol/ (Sodium Chloride) 260 mls @ 42 mls/hr IVPB Q12H PRN PRN Reason: Hypophosphatemia Stop: 09/05/18 04:23 Last Admin: 03/06/18 06:33 Dose: 42 mls/hr Sodium Bicarbonate 75 meq/ (Sodium Chloride) 1,075 mls @ 75 mls/hr IVC .[id number] [facility] Stop: 03/07/18 00:19 Insulin Human Lispro (Humalog) 0 units SQ Q4HR MELANIE; Protocol Stop: 09/05/18 00:01 Last Admin: 03/06/18 09:21 Dose: Not Given Lorazepam (Ativan) 2 mg IVP Q4HR PRN PRN Reason: CIWA Score of 10-21 Stop: 09/04/18 18:04 Last Admin: 03/05/18 23:26 Dose: 2 mg Lorazepam (Ativan) 1 mg IVP Q1H PRN PRN Reason: Alcohol Withdrawal Stop: 09/04/18 19:35 Lorazepam (Ativan) 4 mg IVP Q4HR PRN PRN Reason: CIWA Score of 22-45 Stop: 09/04/18 19:35 Ondansetron HCl (Zofran) 4 mg IVP Q6HR PRN; Protocol PRN Reason: Nausea Stop: 09/04/18 17:21 Last Admin: 03/05/18 22:29 Dose: 4 mg - Imaging and Cardiology Echo: report reviewed Other Results: Tele: avg HR=82 NSR. - EKG Interpretation EKG results cardiology: personally reviewed Consult Discharge Plan - Plan Instructions: Chest Pain (DC), Anemia (GEN) Referrals: Jeffrey Canela MD [Primary Care Provider] - <Catalino Carlton - Last Filed: 03/06/18 12:19> - Attending Attestation I have personally performed a face to face evaluation on this patient. I have reviewed and agree with the care plan. History and Exam by me shows: SVT yesterday that responded to adenosine. Would treat with po cardizem and fu as outpt. Assessment and Plan Discussion w patient/family: The assessment and plan as outlined above was discussed with the patient and/or family members who expressed understanding and agreement. All questions were ans wered. Thank you for involving us in the care of your patient. Please call with any questions. History of Present Illness History of present illness: Ms. Brown is a 52 year old female All Systems Review: The remainder of the systems were reviewed and are negative Physical Examination Vital Signs, Last 4 Hours Pulse Resp BP Pulse Ox 03/06/18 12:02 86 18 115/81 99 03/06/18 11:00 92 20 120/76 97 Results 03/05/18 16:41 03/06/18 06:45 Lab Results 03/05/18 03/05/18 03/05/18 16:41 16:41 16:41 WBC 6.5 Hgb 13.5 D Hct 40.3 Plt Count 80 L INR Sodium 139 Potassium 4.0 Chloride 103 Carbon Dioxide 15 L BUN 10 Creatinine 0.60 Glucose 170 H Calcium 7.3 L Magnesium 1.3 L Total Bilirubin 0.9 AST 55 H ALT 17 Alkaline Phosphatase 58 Troponin I 0.03 TSH 6.318 H 03/05/18 03/05/18 03/05/18 16:41 20:00 21:45 WBC Hgb Hct Plt Count INR 0.9 Sodium 138 Potassium 4.5 Chloride 105 Carbon Dioxide 16 L BUN 8 Creatinine 0.53 L Glucose 102 Calcium 6.7 L Magnesium Total Bilirubin AST ALT Alkaline Phosphatase Troponin I 0.09 H* TSH 03/06/18 03/06/18 03/06/18 00:45 03:55 03:55 WBC Hgb Hct Plt Count INR Sodium 137 Potassium 3.5 Chloride 106 Carbon Dioxide 17 L BUN 7 Creatinine 0.55 L Glucose 91 Calcium 7.1 L Magnesium 1.6 Total Bilirubin AST ALT Alkaline Phosphatase Troponin I 0.07 H* TSH 03/06/18 03/06/18 06:45 11:40 WBC Hgb Hct Plt Count INR Sodium 135 L Potassium 3.5 Chloride 105 Carbon Dioxide 16 L BUN 6 Creatinine 0.50 L Glucose 84 Calcium 7.5 L Magnesium 1.7 Total Bilirubin AST ALT Alkaline Phosphatase Troponin I [facility]
[2018-03-06] MEDS: Diltiazem CD (24hr) 120 MG CAPSULE PO SCH (10:57)
[2018-03-06] MEDS: *HR* Heparin 5,000 UNIT/ML VIAL SQ SCH (17:22)
[2018-03-06] MEDS: Thiamine (B-1) 100 MG, Folic Acid 1 MG, MVI, adult with vitamin K 10 ML in 0.9 % Sodi... IVPB SCH (17:22)
[2018-03-06 17:57] LABS: BUN/Creatinine Ratio 8 (6-26); Blood Urea Nitrogen 3 mg/dL (6-20); Calcium 7.4 mg/dL (8.6-10.3); Carbon Dioxide 22 mEq/L (23-29); Chloride 102 mEq/L (98-107); Glucose 155 mg/dL (70-105); Osmolality,Calculated 280 (280-300); Potassium 3.2 mEq/L (3.5-5.1); Sodium 135 mEq/L (136-145); eGFR For Non-African Americans > 60 (> 60)
[2018-03-06] MEDS: Acetaminophen 325 MG TABLET PO PRN (22:38)
[2018-03-06] MEDS: *HR* LORazepam 2 MG/ML VIAL IVP PRN (22:40)
[2018-03-07] MEDS: Insulin LISPRO 300 UNITS/3 ML VIAL SQ SCH ×4 (01:48→18:50)
[2018-03-07 05:06] LABS: Calcium 7.5 mg/dL (8.6-10.3); Magnesium 1.4 mg/dL (1.6-2.6); Phosphorous < 1.0 mg/dL (2.7-4.5)
[2018-03-07] MEDS ORDERED: Calcium Gluconate 2,000 MG in 0.9 % Sodium Chloride 100 ML IVPB ONE ×2 (05:18→18:28)
[2018-03-07] MEDS ORDERED: Potassium Phosphate 44 MEQ in 0.9 % Sodium Chloride 250 ML IVPB ONE ×2 (05:18→18:30)
[2018-03-07] MEDS: *HR* Heparin 5,000 UNIT/ML VIAL SQ SCH ×2 (05:29→18:46)
[2018-03-07 05:53] LABS: BUN/Creatinine Ratio 6 (6-26); Blood Urea Nitrogen 2 mg/dL (6-20); Carbon Dioxide 27 mEq/L (23-29); Chloride 100 mEq/L (98-107); Glucose 96 mg/dL (70-105); Osmolality,Calculated 280 (280-300); Potassium 2.6 mEq/L (3.5-5.1); Sodium 137 mEq/L (136-145); eGFR For Non-African Americans > 60 (> 60)
--- NOTE | 2018-03-07 07:33 | Nephrology Progress Note ---
Date of Encounter: 03/07/18 Time of Encounter: 07:31 - Assessment and Plan (1) Electrolyte abnormality Current Visit: Yes Status: Acute Patient had multiple electrolyte abnormalities including a mild anion gap acidosis, hypophosphatemia, hypocalcemia. This is likely related to her chronic alcohol use along with 3-4 days of nausea and vomiting with occasional diarrhea and ongoing alcohol use in the face of decreased food consumption. At this time I recommend aggressive electrolyte replacement. Acidosis is resolved. Improving. (2) Alcohol use Current Visit: No Status: Acute Defer to primary team. Monitor for alcohol withdrawl. (3) Hypothyroid Current Visit: No Status: Acute Resume home thyroid supplementation. Qualifiers: Qualified Code(s): E03.9 - Hypothyroidism, unspecified (4) Nausea and vomiting Current Visit: No Status: Acute Likely gastritis, however with a history of alcohol use and ongoing abdominal discomfort I recommend a GI consultation. Patient described 1 episode of melena. Qualifiers: Qualified Code(s): R11.2 - Nausea with vomiting, unspecified (5) Atrial fibrillation with rapid ventricular response Current Visit: No Status: Acute Rate is currently controlled. Defer to primary team. Subjective Principal diagnosis: hypophosphatemia Interval history: Patient seen. No new complaint. Objective - Vital Signs Vital signs: Vital Signs Temp Pulse Resp BP Pulse Ox 03/07/18 05:11 98.8 F 71 16 119/80 97 03/07/18 02:20 98.6 F 80 16 115/79 97 03/06/18 21:33 98.8 F 83 16 125/80 97 03/06/18 15:51 98.2 F 85 15 111/76 98 03/06/18 12:02 86 18 115/81 99 03/06/18 11:00 92 20 120/76 97 03/06/18 08:00 98.4 F 84 20 117/84 98 Intake and Output 03/06/18 03/06/18 03/07/18 15:59 23:59 07:59 Intake Total 511.2 / 511.2 Output Total 1000 / 1000 800 / 800 Balance -1000 / -1000 -288.8 / -288.8 Intake: IV Fluids 511.2 / 511.2 Magnesium Sulfate 2 GM In 0.9 % 104 / 104 Sodium Chloride 100 ML @ 52 mls/hr IVPB Q6H PRN Rx#: [id number] Potassium Chloride 10 mEq/100mL 100 / 100 10 meq In 100 ml @ 100 mls/hr IVPB Q1H PRN Rx#:[id number] Vitamin B-1 100 MG Folvite 1 MG 511.2 / 511.2 M.v.i. Adult 10 ml In 0.9 % Sodium Chloride 500 ML @ 85.2 mls/hr IVPB DAILY@1800 MELANIE Rx#: [id number] Output: Urine 1000 / 1000 800 / 800 Other: # Voids 1 Weight 53.127 kg Blood Glucose* 112 95 87 - General Appearance General appearance: Present: well-developed, well-nourished EENT: Present: ATNC Cardiology: Present: regular rate - Lab 03/05/18 16:41 03/07/18 04:09 Most recent lab results Calcium 7.5 mg/dL (8.6-10.3) L 03/07/18 04:09 Phosphorus < 1.0 mg/dL (2.7-4.5) L* 03/07/18 04:09 Magnesium 1.4 mg/dL (1.6-2.6) L 03/07/18 04:09 Consult Discharge Plan - Plan Instructions: Chest Pain (DC), Anemia (GEN) Referrals: Jeffrey Canela MD [Primary Care Provider] -
[2018-03-07] MEDS: Diltiazem CD (24hr) 120 MG CAPSULE PO SCH (08:10)
[2018-03-07] MEDS: Acetaminophen 325 MG TABLET PO PRN (08:10)
--- NOTE | 2018-03-07 10:05 | Internal Med Progress Note ---
Addendum entered and electronically signed by Camille Ness DO 03/08/18 07:14: Addendum entered and electronically signed by Catrachita Chambers 03/07/18 18:33: Hypokalemia, hypocalcemia, hypophosphatemia, and hypomagnesemia improved on lab recheck, but still needs further repletion. Ordered KCl 20, Ca gluconate 2000mg, K phosphate 44, and Mg 2g, for IV repletion, as recommended by Pharmacy. Original Note: <Camille Ness - Last Filed: 03/07/18 13:56> Hospitalist Progress Note - Exam Vitals: Temp Pulse Resp BP Pulse Ox 98.7 F 75 16 119/83 96 03/07/18 11:36 03/07/18 11:36 03/07/18 11:36 03/07/18 11:36 03/07/18 11:36 - Time Spent with Patient Total time spent is greater than 50% in coordination of care (as documented) at patient's floor/unit and/or counseling patient: Internal Medicine: Result - Labs CBC & Chem 7: 03/05/18 16:41 03/07/18 04:09 Labs: BMP 03/06/18 03/07/18 17:27 04:09 Sodium 135 L 137 Potassium 3.2 L 2.6 L Chloride 102 100 Carbon Dioxide 22 L 27 BUN 3 L 2 L Creatinine 0.37 L 0.34 L Glucose 155 H 96 Calcium 7.4 L 7.5 L - ABG Interpretation ABG results: PT/INR, D-dimer PT 10.5 Seconds (9.4-12.1) 03/05/18 16:41 Consult Discharge Plan - Plan Instructions: Chest Pain (DC), Anemia (GEN) Referrals: Jeffrey Canela MD [Primary Care Provider] - - Attending Attestation I examined this patient and my medical decision-making was reviewed with the Resident Physician Dr Chambers. I agree with the documented findings, disposition and treatment plan as described except to the extent set forth below/addl details below. Mrs Brown was admitted with new onset arrhythmia, svt , in setting of 3d nausea/emesis/abd pain with heavy etoh use. awake, present. abd pain epigastrium and LUQ, no nausea or emesis. no diarrhea. no melanotic stool in last week, no history of gib. She is anxious and felt very anxious overnight. Had hand tremor last night, none today. gen- alert, awake,appears stated age eyes- pupils equal round , no conjunctival pallor, no scleral icterus cv- reg rate and rhythm, normal s1,s2, no murmurs appreciated, no le edema lungs- ctabl, no wheezing, rhonchi or crackles, normal resp effort on ra abd- soft, tender LUQ and epigastrium and epigastrium, no guarding or rigidity, non distended, + bs skin- normal color, no pallor or jaundice neuro- AAOx3, CN grossly intact, no tremor SVT, resolved Now normal sinus rhythm no aCS, likely related to dehydration and metabolic disturbances including etoh use, agma -ekg at [place] appears to be svt in 200s and given one time adenosine 6mg per records, no apparent immediate ekg from afterwards -repeat ekgs without ischemic changes -TTE 03/05/18: LVEF 65-70%, no significant valvular dysfunction, normal wall motion. -off cardizem gtt and cards transitioned to PO cardizem -managing electrolyte abnormlities, IVFs -no hep gtt required as per cards -she will fu with Dr Carlton in 6 weeks Elevated Troponin, suspect dynamic elevation in setting of SVT, low liklihood acs -cards does not rec further inpt testing N/V/D/Abd Pain, improving- suspect 2/2 etoh dependence/intoxication vs hyperglycemia/starvation ketosis/agma cannot rule out gastritis vs ulcer given risk factors with heavy etoh use and epigastric and luq pain, notes one incidence of black stool about 1 week ago, none since -ct a/p at [place] without acute etiology ua neg for infection, amylase lipase wnl -RUQ US unremarkable -IVFs, anti emetics, prn pain control, advance diet as tolerated, PPI -will monitor stool and consult GI friday when they are available, if any active melena or other bleeding will consult surg immediately etoh dependence-~6 beers/day, 10-15 shots of tequila/day. -ciwa scale, tele, thiamine/folate/mvi -etoh level neg on admit, last drink roughly 03/03 -at this time declines SW consult for assistance with resources available Hyperglycemia (glc 200s at [place]), no prior hx--initally with bhb elevation, ketone in urine and AGMA suspected pt may have DKA -bs returned to normal with IVFs and no insulin gtt was required, d/w pharmacy and despite low bicarb other labs did not clinically indicate her for need for bicarb infusion per the protocol -a1c resulted 4.9 -acidosis more likely starvation related possibly, see agma below AGMA, resolved- consulted nephro for further input on cause and treatment, started on bicarb infusion with closing of gap Likely 2/2 etoh use, emesis, diarrhea and poor oral intake Hypophosphatemia- IV repletion and monitor Hypocalcemia- IV repletion and monitor Hypokalemia- IV repletion and monitor Hypomagnesemia - IV repletion and monitor repeat labs in afternoon and replete further as needed Elevated T bili 1.3 and hx elevated to 1.5 most recently in December, resolved- ruq us negative <Catrachita Chambers - Last Filed: 03/07/18 15:38> Hospitalist Progress Note - Encounter Date of Encounter: 03/07/18 Time of Encounter: 10:00 - Subjective Interval History: Patient seen and examined. No acute events overnight. Patient is resting comfortably in bed. Patient states shes having a lot of anxiety. Indicates she wants scheduled Ativan. Had CIWA score of 7 this morning. Reports abdominal emmanuelle n, worse with eating. States now its LUQ pain 7/10 that came down to 6/10 with Tylenol. Reports nausea due to anxiety. Denies emesis. Had formed bowel movement today, no diarrhea. Nurse reports shes very weak and had to help her to bedside. - Exam Vitals: Temp Pulse Resp BP Pulse Ox 98.3 F 81 16 124/85 96 03/07/18 08:24 03/07/18 08:24 03/07/18 08:24 03/07/18 08:24 03/07/18 08:24 Exam: General: Normal body habitus. Alert and oriented x3. No acute distress. Head: atraumatic, normocephalic. Eye: pupils equal and round. Sclera anicteric. EOMI. Neck: supple. Trachea midline. Lungs: CTAB. No rhonchi, rales, or wheezing. Cardiovascular: Normal S1 & S2. No rubs or gallops. No JVD. Pulse regular. Abdomen: Normal bowel sounds. LUQ tender to palpation. No guarding, no rigidity, no rebound. Extremities: No joint swelling, edema, or clubbing. Nontender. No tremors. Skin: warm, dry, and intact. - Assessment and Plan (1) SVT (supraventricular tachycardia) Current Visit: Yes Status: Resolved Assessment and Plan: Initial EKG with SVT, HR >200. Received one dose of adenosine and was started on diltiazem drip at [place]. Likely secondary to dehydration and metabolic disturbances from alcohol use and AGMA. Not ACS. Patient has history of uterine bleed/anemia, multiple readings of HTN (not on antihypertensives). CHADSVASC = 2, HASBLED = 2 Repeat EKGs showed NSR, no ischemic changes. TTE 03/05/18 showed LVEF 65-70%, no significant valvular dysfunction, normal w all motion. Resolved. Heparin drip was discontinued, started on VTE prophylaxis. Transitioned from Cardizem drop to low dose cardizem 120mg PO daily. Cardiology consulted. Outpatient follow up with Cardiology Dr. Carlton in 6 weeks. (2) High anion gap metabolic acidosis Current Visit: Yes Status: Resolved Assessment and Plan: Likely secondary to alcohol use vs poor oral intake. Patient presented with hyperglycemia (>200), anion gap = 26, ketonuria and +beta-hydroxybutyric acid. She received 4L IVF since admission Started IV insulin in the ICU, anion gap improving. Patient was successfully transitioned to SQ Insulin. Patient denied methanol use, kidney function WNL and baseline, HbA1c= 4.9, no leukocytosis, denied aspirin use. Nephrology consulted. Agreed AGMA likely due to alcohol use, electrolyte losses, diarrhea. Bicarb infusion on 03/06. Resolved. Continue to monitor. (3) Electrolyte abnormality Current Visit: Yes Status: Acute Assessment and Plan: Hypokalemia, hypocalcemia, hypomagnesemia, and hypophosphatemia. Likely secondary to alcohol use, anorexia, vomiting/diarrhea. Today, transitioned to regular diet. IV repletion and monitor. Nephrology consulted and following. (4) Abdominal pain Current Visit: No Status: Acute Assessment and Plan: Patient presented with RUQ abd pain, nausea and vomiting. Likely secondary to alcohol use and hyperglycemia/starvation ketosis/AGMA. Patient reports one episode of melena >1wk ago. Had multiple bowel movements in hospital, all normal. Hb was normal. UA was negative. Amylase and lipase were normal. RUQ ultrasound was negative. CT abd/pelvis showed no acute abnormality. Improving. No more emesis. Transitioned to regular diet today. Continue Zofran. If patient remains stable over weekend without bloody stools, plan for GI consult on Friday. (5) Elevated troponin Current Visit: Yes Status: Resolved Assessment and Plan: Serial troponins: 0.03 0.09 0.07. Likely secondary to SVT. ACS unlikely. Cardiology consulted. Does not recommend further inpatient testing. (6) Alcohol use Current Visit: No Status: Acute Assessment and Plan: History of alcohol abuse. 6 beers and 10-15 shots of tequila per day. Last drink was 2 days before admission. EtOH was <10. CIWA protocol. Thiamine/folate/multivitamins. Ativan as needed. Vistaril prn for anxiety. (7) Diarrhea Current Visit: No Status: Resolved Assessment and Plan: Likely 2/2 alcohol use, poor oral intake. Resolved. (8) Hyperglycemia Current Visit: No Status: Resolved Assessment and Plan: Patient presented with hyperglycemia (>200). No prior history. A1C is 4.9%. IV fluids. Insulin was not required. Resolved. (9) Hypothyroid Current Visit: No Status: Acute Assessment and Plan: History of hypothyroid. TSH was elevated at 6.3. Patient had missed multiple doses. Continue home dose synthroid. DVT Prophylaxis: SubQ Heparin - Time Spent with Patient Total time spent is greater than 50% in coordination of care (as documented) at patient's floor/unit and/or counseling patient: Internal Medicine: Result - Labs CBC & Chem 7: 03/05/18 16:41 03/07/18 04:09 Labs: BMP 03/06/18 03/07/18 17:27 04:09 Sodium 135 L 137 Potassium 3.2 L 2.6 L Chloride 102 100 Carbon Dioxide 22 L 27 BUN 3 L 2 L Creatinine 0.37 L 0.34 L Glucose 155 H 96 Calcium 7.4 L 7.5 L - ABG Interpretation ABG results: PT/INR, D-dimer PT 10.5 Seconds (9.4-12.1) 03/05/18 16:41 <Catrachita Chambers - Last Filed: 03/07/18 15:38> (4) Abdominal pain Qualifiers: Abdominal location: epigastric Qualified Code(s): R10.13 - Epigastric pain (7) Diarrhea Qualifiers: Qualified Code(s): R19.7 - Diarrhea, unspecified (9) Hypothyroid Qualifiers: Qualified Code(s): E03.9 - Hypothyroidism, unspecified
--- NOTE | 2018-03-07 12:04 | Electrocardiograph Report ---
[address] [place] [address] Test Date: 2018-03-05 Pat Name: Marci Brown Department: 112 Room: 2A26 Gender: F Cardiac Nurse: BENSON : 1965 Requested By: Camille Ness Order Number: [id number] Reading MD: Xiomy Jansen Measurements Intervals [place] Rate: 86 P: 60 VA: 149 QRS: 71 QRSD: 79 T: 110 QT: 437 QTc: 481 Interpretive Statements SINUS RHYTHM ST DEVIATION AND MODERATE T-WAVE ABNORMALITY, CONSIDER ANTERIOR ISCHEMIA Electronically Signed On 03-07-2018 12:03:15 EDT by Xiomy Jansen
--- NOTE | 2018-03-07 12:11 | Electrocardiograph Report ---
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
--- NOTE | 2018-03-07 12:11 | Electrocardiograph Report ---
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
[2018-03-07] MEDS: Ondansetron 4 MG/2 ML VIAL IVP PRN (12:51)
[2018-03-07] MEDS: Pantoprazole 40 MG VIAL IVP SCH (16:33)
[2018-03-07 17:10] LABS: Albumin 3.2 g/dL (3.5-5.7); BUN/Creatinine Ratio 8 (6-26); Blood Urea Nitrogen 4 mg/dL (6-20); Calcium 8.5 mg/dL (8.6-10.3); Carbon Dioxide 30 mEq/L (23-29); Chloride 101 mEq/L (98-107); Glucose 126 mg/dL (70-105); Magnesium 1.6 mg/dL (1.6-2.6); Osmolality,Calculated 286 (280-300); Phosphorous 1.7 mg/dL (2.7-4.5); Potassium 2.9 mEq/L (3.5-5.1); Sodium 139 mEq/L (136-145); eGFR For Non-African Americans > 60 (> 60)
[2018-03-07] MEDS ORDERED: Potassium Chloride 20 MEQ, Lidocaine 1% 2 ML in D5% in Water 250 ML IVPB ONE (18:31)
[2018-03-07] MEDS: Thiamine (B-1) 100 MG, Folic Acid 1 MG, MVI, adult with vitamin K 10 ML in 0.9 % Sodi... IVPB SCH (18:46)
[2018-03-08] MEDS: Insulin LISPRO 300 UNITS/3 ML VIAL SQ SCH ×4 (01:03→17:54)
[2018-03-08] MEDS: Acetaminophen 325 MG TABLET PO PRN (01:32)
[2018-03-08] MEDS: *HR* LORazepam 2 MG/ML VIAL IVP PRN (01:33)
[2018-03-08] MEDS: *HR* Heparin 5,000 UNIT/ML VIAL SQ SCH (06:35)
--- NOTE | 2018-03-08 06:55 | Nephrology Progress Note ---
Date of Encounter: 03/08/18 Time of Encounter: 06:54 - Assessment and Plan (1) Electrolyte abnormality Current Visit: Yes Status: Acute Patient had multiple electrolyte abnormalities including a mild anion gap acidosis, hypophosphatemia, hypocalcemia. This is likely related to her chronic alcohol use along with 3-4 days of nausea and vomiting with occasional diarrhea and ongoing alcohol use in the face of decreased food consumption. At this time I recommend aggressive electrolyte replacement. Acidosis is resolved. Improving. (2) Alcohol use Current Visit: No Status: Acute Defer to primary team. Monitor for alcohol withdrawl. (3) Hypothyroid Current Visit: No Status: Acute Qualifiers: Qualified Code(s): E03.9 - Hypothyroidism, unspecified (4) Nausea and vomiting Current Visit: No Status: Acute Qualifiers: Qualified Code(s): R11.2 - Nausea with vomiting, unspecified (5) Atrial fibrillation with rapid ventricular response Current Visit: No Status: Acute Rate is currently controlled. Defer to primary team. Subjective Principal diagnosis: hypophosphatemia Interval history: Patient seen. No new complaint. Objective - Vital Signs Vital signs: Vital Signs Temp Pulse Resp BP Pulse Ox 03/08/18 03:56 98 F 72 17 123/93 97 03/08/18 00:36 98.3 F 89 17 134/89 97 03/07/18 18:52 98.9 F 80 15 123/84 96 03/07/18 16:27 98.7 F 86 16 136/96 97 03/07/18 11:36 98.7 F 75 16 119/83 96 03/07/18 08:24 98.3 F 81 16 124/85 96 Intake and Output 03/07/18 03/07/18 03/08/18 15:59 23:59 07:59 Intake Total 240 / 240 Balance 240 / 240 Intake: Oral 240 / 240 Other: Meal Breakfast Percent of Meal Consumed 10% Weight 53.977 kg Blood Glucose* 113 151 84 Patient Weight 03/08/18 23:59 Weight 53.977 kg - General Appearance General appearance: Present: well-developed, well-nourished - Lab 03/05/18 16:41 03/07/18 16:44 Most recent lab results Calcium 8.5 mg/dL (8.6-10.3) L 03/07/18 16:44 Phosphorus 1.7 mg/dL (2.7-4.5) L 03/07/18 16:44 Magnesium 1.6 mg/dL (1.6-2.6) 03/07/18 16:44 Consult Discharge Plan - Plan Instructions: Chest Pain (DC), Anemia (GEN) Referrals: Jeffrey Canela MD [Primary Care Provider] -
[2018-03-08 07:03] LABS: Hematocrit 39.6 % (35.3-44.9); Red Cell Distribution Width 13.3 % (11.5-14.5)
[2018-03-08 07:05] LABS: Basophils % 0.9 %; Eosinophils # 0.1 K/mcL (0.0-0.6); Eosinophils % 2.5 %; Hemoglobin 13.7 g/dL (11.5-15.4); Immature Granulocytes % 0.6 % (0-4); Immature Platelets 7.8 % (1.1-6.1); Lymphocytes # 0.9 K/mcL (0.6-4.6); Lymphocytes % 27.3 %; Mean Corpuscular HGB Conc 34.6 g/dL (31.6-35.5); Mean Corpuscular Hemoglobin 32.9 pg (28.0-33.3); Mean Corpuscular Volume 95.2 fL (83.0-100.0); Monocytes # 0.2 K/mcL (0.0-1.3); Monocytes % 6.9 %; Red Blood Count 4.16 M/mcL (3.82-4.97); Segmented Neutrophils % 61.8 %
[2018-03-08 07:06] LABS: Platelet Count 62 K/mcL (140-400)
[2018-03-08 07:09] LABS: VBG Ionized Calcium 1.16 mmol/L (1.15-1.35)
[2018-03-08 07:27] LABS: Alanine Aminotransferase 14 Units/L (7-52); Albumin 3.5 g/dL (3.5-5.7); Albumin/Globulin Ratio 1.3 (1.1-2.2); Alkaline Phosphatase 52 Units/L (34-104); Aspartate Amino Transferase 33 Units/L (13-39); BUN/Creatinine Ratio 8 (6-26); Bilirubin,Total 0.6 mg/dL (0.3-1.0); Blood Urea Nitrogen 4 mg/dL (6-20); Calcium 9.1 mg/dL (8.6-10.3); Carbon Dioxide 32 mEq/L (23-29); Chloride 103 mEq/L (98-107); Globulin 2.6 g/dL (2.4-3.5); Glucose 99 mg/dL (70-105); Magnesium 1.7 mg/dL (1.6-2.6); Osmolality,Calculated 291 (280-300); Phosphorous 3.3 mg/dL (2.7-4.5); Potassium 2.9 mEq/L (3.5-5.1); Sodium 142 mEq/L (136-145); Total Protein 6.1 g/dL (6.4-8.9); eGFR For Non-African Americans > 60 (> 60)
--- NOTE | 2018-03-08 08:00 | Internal Med Progress Note ---
<Camille Ness - Last Filed: 03/08/18 13:04> Hospitalist Progress Note - Exam Vitals: Temp Pulse Resp BP Pulse Ox 98.3 F 82 16 125/95 95 03/08/18 11:50 03/08/18 11:50 03/08/18 11:50 03/08/18 11:50 03/08/18 11:50 - Time Spent with Patient Total time spent is greater than 50% in coordination of care (as documented) at patient's floor/unit and/or counseling patient: Internal Medicine: Result - Labs CBC & Chem 7: 03/08/18 06:52 03/08/18 06:52 Labs: Short CBC 03/08/18 Range/Units 06:52 WBC 3.2 L D (4.3-11.1) K/mcL Hgb 13.7 (11.5-15.4) g/dL Hct 39.6 (35.3-44.9) % Plt Count 62 L (140-400) K/mcL Neutrophils # 2.0 (1.6-8.9) K/mcL BMP 03/07/18 03/07/18 03/08/18 16:44 16:44 06:52 Sodium 139 142 Potassium 2.9 L 2.9 L 2.9 L Chloride 101 103 Carbon Dioxide 30 H 32 H BUN 4 L 4 L Creatinine 0.50 L 0.49 L Glucose 126 H 99 Calcium 8.5 L 9.1 Liver Function 03/07/18 03/08/18 Range/Units 16:44 06:52 Total Bilirubin 0.6 (0.3-1.0) mg/dL AST 33 (13-39) Units/L ALT 14 (7-52) Units/L Alkaline Phosphatase 52 (34-104) Units/L Albumin 3.2 L 3.5 (3.5-5.7) g/dL - ABG Interpretation ABG results: PT/INR, D-dimer PT 10.5 Seconds (9.4-12.1) 03/05/18 16:41 Consult Discharge Plan - Plan Instructions: Chest Pain (DC), Anemia (GEN) Referrals: Jeffrey Canela MD [Primary Care Provider] - - Attending Attestation I examined this patient and my medical decision-making was reviewed with the Resident Physician Dr Chambers. I agree with the documented findings, disposition and treatment plan as described except to the extent set forth below/addl details below. Mrs Brown was admitted with new onset arrhythmia, svt , in setting of 3d nausea/emesis/abd pain with heavy etoh use. awake, present. abd pain epigastrium and LUQ improving, no nausea or emesis. no diarrhea. Ate dinner last night and tolerated without difficulty. cont to have anxiety. no hallucinations, no tremor gen- alert, awake,appears stated age eyes- pupils equal round , no conjunctival pallor, no scleral icterus cv- reg rate and rhythm, normal s1,s2, no murmurs appreciated lungs- ctabl, no wheezing, rhonchi or crackles, normal resp effort on ra abd- soft, tender LUQ and epigastrium and epigastrium, no guarding or rigidity, non distended, + bs skin- normal color, no pallor or jaundice neuro- AAOx3, no tremor SVT, resolved Now normal sinus rhythm no aCS, likely related to dehydration and metabolic disturbances including etoh use, agma -TTE 03/05/18: LVEF 65-70%, no significant valvular dysfunction, normal wall motion. -off cardizem gtt and cards transitioned to PO cardizem -managing electrolyte abnormlities, IVFs -no hep gtt required as per cards -she will fu with Dr Carlton in 6 weeks Elevated Troponin, suspect dynamic elevation in setting of SVT, low liklihood acs -cards does not rec further inpt testing N/V/D/Abd Pain, improving- suspect 2/2 etoh dependence/intoxication vs hyperglycemia/starvation ketosis/agma cannot rule out gastritis vs ulcer given risk factors with heavy etoh use and epigastric and luq pain, notes one incidence of black stool about 1 week ago, none since -ct a/p at [facility] without acute etiology ua neg for infection, amylase lipase wnl -RUQ US unremarkable -IVFs, anti emetics, prn pain control, advance diet as tolerated, PPI -will monitor stool and consult GI friday when they are available, if any active melena or other bleeding will consult surg immediately etoh dependence-~6 beers/day, 10-15 shots of tequila/day. -ciwa scale, tele, thiamine/folate/mvi -etoh level neg on admit, last drink roughly 03/03 -at this time declines SW consult for assistance with resources available Hyperglycemia (glc 200s at [place]), no prior hx--initally with bhb elevation, ketone in urine and AGMA suspected pt may have DKA -bs returned to normal with IVFs and no insulin gtt was required, d/w pharmacy and despite low bicarb other labs did not clinically indicate her for need for bicarb infusion per the protocol -a1c resulted 4.9 -acidosis more likely starvation related possibly, see agma below AGMA, resolved- consulted nephro for further input on cause and treatment, started on bicarb infusion with closing of gap Likely 2/2 etoh use, emesis, diarrhea and poor oral intake Hypophosphatemia- resolved Hypocalcemia-resolved Hypokalemia- no improvement with IV repletion, as taking oral now try 40 meq PO BID today Hypomagnesemia - resolved Thrombocytopenia on admission, plt down to 60, no signs of bleeding, stop sub q heparin for vte ppx, cont to monitor <Catrachita Chambers - Last Filed: 03/08/18 14:15> Hospitalist Progress Note - Encounter Date of Encounter: 03/08/18 Time of Encounter: 07:45 - Subjective Interval History: Patient seen and examined. No acute events overnight. Patient is resting comfortably in bed. Patient states shes ok. Transitioned from liquid to regular diet yesterday. States still has abdominal pain with eating but is better than when was on liquid diet. Reports increased energy. Reports upper abdominal pain 4/10 at this time. Denies nausea. Denies vomiting. States she had a panic attack last night after waking from a nightmare. States she had shortness of breath and abdominal pain. Resolved after Ativan. Denies any blood in stools, denies diarrhea. - Exam Vitals: Temp Pulse Resp BP Pulse Ox 98 F 72 17 123/93 97 03/08/18 03:56 03/08/18 03:56 03/08/18 03:56 03/08/18 03:56 03/08/18 03:56 Exam: General: Normal body habitus. Alert and oriented x3. No acute distress. Head: atraumatic, normocephalic. Eye: pupils equal and round. Sclera anicteric. EOMI. Neck: supple. Trachea midline. Lungs: CTAB. No rhonchi, rales, or wheezing. Cardiovascular: Normal S1 & S2. No rubs or gallops. No JVD. Pulse regular. Abdomen: Normal bowel sounds. LUQ tender to palpation. No guarding, no rigidity, no rebound. Extremities: No joint swelling, edema, or clubbing. Nontender. No tremors. Skin: warm, dry, and intact. - Assessment and Plan (1) SVT (supraventricular tachycardia) Current Visit: Yes Status: Resolved Assessment and Plan: Initial EKG with SVT, HR >200. Received one dose of adenosine and was started on diltiazem drip at [facility]. Likely secondary to dehydration and metabolic disturbances from alcohol use and AGMA. Not ACS. Patient has history of uterine bleed/anemia, multiple readings of HTN (not on antihypertensives). CHADSVASC = 2, HASBLED = 2 Repeat EKGs showed NSR, no ischemic changes. TTE 03/05/18 showed LVEF 65-70%, no significant valvular dysfunction, normal wall motion. Resolved. Heparin drip was discontinued, started on VTE prophylaxis. Transitioned from Cardizem drop to low dose cardizem 120mg PO daily. Cardiology was consulted. Outpatient follow up with Cardiology Dr. Carlton in 6 weeks. (2) High anion gap metabolic acidosis Current Visit: Yes Status: Resolved Assessment and Plan: Likely secondary to alcohol use, vomiting/diarrhea, and poor oral intake. Patient presented with hyperglycemia (>200), anion gap = 26, ketonuria and +beta-hydroxybutyric acid. She received 4L IVF since admission Started IV insulin in the ICU, anion gap improving. Patient was successfully transitioned to SQ Insulin. Patient denied methanol use, kidney function WNL and baseline, HbA1c= 4.9, no leukocytosis, denied aspirin use. Nephrology consulted. Agreed AGMA likely due to alcohol use, electrolyte losses, diarrhea. Bicarb infusion on 03/06. Resolved. Continue to monitor. (3) Electrolyte abnormality Current Visit: Yes Status: Acute Assessment and Plan: Hypokalemia, hypocalcemia, hypomagnesemia, and hypophosphatemia. Likely secondary to alcohol use, anorexia, vomiting/diarrhea. Transitioned to regular diet, better tolerated than liquid diet. IV repletion. Hypocalcemia, hypomagnesemia, and hypophosphatemia are resolved. Hypokalemia remains at 2.9 despite IV repletion. Will provide 40 KCl PO BID today. Recheck tomorrow morning. Continue to monitor. Nephrology consulted and following. (4) Abdominal pain Current Visit: No Status: Acute Assessment and Plan: Likely secondary to alcohol use and hyperglycemia/starvation ketosis/AGMA. Patient reports one episode of melena >1wk ago. Had multiple bowel movements in hospital, all normal. Hb was normal. UA was negative. Amylase and lipase were normal. RUQ ultrasound was negative. CT abd/pelvis showed no acute abnormality. Improved. Transitioned to regular diet, tolerating well. Continue Zofran. Continue to monitor stool for blood and consult GI on Friday. (5) Elevated troponin Current Visit: Yes Status: Resolved Assessment and Plan: Serial troponins: 0.03 0.09 0.07. Likely secondary to SVT. ACS unlikely. Cardiology consulted. Does not recommend further inpatient testing. (6) Alcohol use Current Visit: No Status: Acute Assessment and Plan: History of alcohol abuse. 6 beers and 10-15 shots of tequila per day. Last drink was 2 days before admission. EtOH was <10. CIWA protocol. Thiamine/folate/multivitamins. Ativan as needed. Vistaril prn for anxiety. Patient declines Social Work consult. (7) Diarrhea Current Visit: No Status: Resolved Assessment and Plan: Likely 2/2 alcohol use, poor oral intake. Resolved. (8) Hyperglycemia Current Visit: No Status: Resolved Assessment and Plan: Patient presented with hyperglycemia (>200). No prior history. A1C is 4.9%. IV fluids. Insulin was not required. Resolved. (9) Hypothyroid Current Visit: No Status: Acute Assessment and Plan: History of hypothyroid. TSH was elevated at 6.3. Patient had missed multiple doses. Continue home dose synthroid. DVT Prophylaxis: SubQ Heparin - Time Spent with Patient Total time spent is greater than 50% in coordination of care (as documented) at patient's floor/unit and/or counseling patient: Internal Medicine: Result - Labs CBC & Chem 7: 03/08/18 06:52 03/08/18 06:52 Labs: Short CBC 03/08/18 Range/Units 06:52 WBC 3.2 L D (4.3-11.1) K/mcL Hgb 13.7 (11.5-15.4) g/dL Hct 39.6 (35.3-44.9) % Plt Count 62 L (140-400) K/mcL Neutrophils # 2.0 (1.6-8.9) K/mcL BMP 03/07/18 03/07/18 03/08/18 16:44 16:44 06:52 Sodium 139 142 Potassium 2.9 L 2.9 L 2.9 L Chloride 101 103 Carbon Dioxide 30 H 32 H BUN 4 L 4 L Creatinine 0.50 L 0.49 L Glucose 126 H 99 Calcium 8.5 L 9.1 Liver Function 03/07/18 03/08/18 Range/Units 16:44 06:52 Total Bilirubin 0.6 (0.3-1.0) mg/dL AST 33 (13-39) Units/L ALT 14 (7-52) Units/L Alkaline Phosphatase 52 (34-104) Units/L Albumin 3.2 L 3.5 (3.5-5.7) g/dL - ABG Interpretation ABG results: PT/INR, D-dimer PT 10.5 Seconds (9.4-12.1) 03/05/18 16:41 <Catrachita Chambers - Last Filed: 03/08/18 14:15> (4) Abdominal pain Qualifiers: Abdominal location: epigastric Qualified Code(s): R10.13 - Epigastric pain (7) Diarrhea Qualifiers: Qualified Code(s): R19.7 - Diarrhea, unspecified (9) Hypothyroid Qualifiers: Qualified Code(s): E03.9 - Hypothyroidism, unspecified
[2018-03-08] MEDS: Diltiazem CD (24hr) 120 MG CAPSULE PO SCH (08:34)
[2018-03-08] MEDS: Pantoprazole 40 MG VIAL IVP SCH (08:35)
[2018-03-08] MEDS: Thiamine (B-1) 100 MG TABLET PO SCH (08:35)
[2018-03-08] MEDS: Multivit/Ca/Min/Fe/FA 1 TAB TABLET PO SCH (08:35)
[2018-03-08] MEDS: Folic Acid 1 MG TABLET PO SCH (08:35)
[2018-03-09] MEDS: Insulin LISPRO 300 UNITS/3 ML VIAL SQ SCH ×4 (01:52→17:19)
[2018-03-09 05:52] LABS: Immature Granulocytes % 0.3 % (0-4); Red Cell Distribution Width 13.8 % (11.5-14.5)
[2018-03-09 05:53] LABS: Basophils % 0.3 %; Eosinophils # 0.1 K/mcL (0.0-0.6); Eosinophils % 4.2 %; Hematocrit 36.2 % (35.3-44.9); Hemoglobin 12.7 g/dL (11.5-15.4); Immature Platelets 7.5 % (1.1-6.1); Lymphocytes # 0.8 K/mcL (0.6-4.6); Lymphocytes % 25.9 %; Mean Corpuscular HGB Conc 35.1 g/dL (31.6-35.5); Mean Corpuscular Hemoglobin 33.3 pg (28.0-33.3); Mean Platelet Volume 10.5 fL (9.4-12.4); Monocytes # 0.4 K/mcL (0.0-1.3); Monocytes % 13.3 %; Neutrophils # 1.7 K/mcL (1.6-8.9); Red Blood Count 3.81 M/mcL (3.82-4.97)
[2018-03-09 05:59] LABS: Platelet Count 69 K/mcL (140-400)
[2018-03-09 06:07] LABS: BUN/Creatinine Ratio 17 (6-26); Blood Urea Nitrogen 8 mg/dL (6-20); Calcium 9.5 mg/dL (8.6-10.3); Carbon Dioxide 29 mEq/L (23-29); Chloride 103 mEq/L (98-107); Glucose 127 mg/dL (70-105); Magnesium 1.4 mg/dL (1.6-2.6); Osmolality,Calculated 288 (280-300); Phosphorous 3.4 mg/dL (2.7-4.5); Potassium 3.6 mEq/L (3.5-5.1); Sodium 139 mEq/L (136-145); eGFR For Non-African Americans > 60 (> 60)
--- NOTE | 2018-03-09 07:34 | Internal Med Progress Note ---
Hospitalist Progress Note - Exam Vitals: Temp Pulse Resp BP Pulse Ox 98.8 F 75 16 123/78 97 03/09/18 04:40 03/09/18 04:40 03/09/18 04:40 03/09/18 04:40 03/09/18 04:40 - Time Spent with Patient Total time spent is greater than 50% in coordination of care (as documented) at patient's floor/unit and/or counseling patient: Internal Medicine: Result - Labs CBC & Chem 7: 03/09/18 05:28 03/09/18 05:28 Labs: Short CBC 03/09/18 Range/Units 05:28 WBC 3.1 L (4.3-11.1) K/mcL Hgb 12.7 (11.5-15.4) g/dL Hct 36.2 (35.3-44.9) % Plt Count 69 L (140-400) K/mcL Neutrophils # 1.7 (1.6-8.9) K/mcL BMP 03/09/18 05:28 Sodium 139 Potassium 3.6 Chloride 103 Carbon Dioxide 29 BUN 8 Creatinine 0.46 L Glucose 127 H Calcium 9.5 - ABG Interpretation ABG results: PT/INR, D-dimer PT 10.5 Seconds (9.4-12.1) 03/05/18 16:41 Consult Discharge Plan - Plan Instructions: Chest Pain (DC), Anemia (GEN) Referrals: Jeffrey Canela MD [Primary Care Provider] -
--- NOTE | 2018-03-09 07:38 | Event Note ---
Date of Encounter: 03/09/18 Time of Encounter: 07:37 Nephrology Chart Review and Update I'm on-call starting today and see that this pt was consulted for electrolyte abnormalities, all of which have substantially improved and / or resolved. I will sign-off at this point. Please feel free to call or re-consult with any nephrology questions. Thank you.
[2018-03-09] MEDS: Folic Acid 1 MG TABLET PO SCH (09:55)
[2018-03-09] MEDS: Multivit/Ca/Min/Fe/FA 1 TAB TABLET PO SCH (09:55)
[2018-03-09] MEDS: Diltiazem CD (24hr) 120 MG CAPSULE PO SCH (09:55)
[2018-03-09] MEDS: Thiamine (B-1) 100 MG TABLET PO SCH (09:55)
--- NOTE | 2018-03-09 12:07 | Discharge Summary ---
- NOTES TO OUTPATIENT PROVIDER Notes to Outpatient Provider: - f/u with cardiology as an outpatient for the SVT epidose that happened. - f/u with PCP as an out-patient Orders not resulted at time of discharge: Pending orders 03/06/18 03:55 Ionized Calcium,venous blood AM 0400 03/06/18 06:45 Basic Metabolic Panel Stat 03/06/18 11:17 Osmolality,Urine [UCHEM] Routine 03/06/18 11:40 Ionized Calcium,venous blood Routine Magnesium Routine 03/08/18 06:52 Ionized Calcium,venous blood AM 0400 Date of Encounter: 03/09/18 Time of Encounter: 10:50 Hospital course: Ms. Brown is a 52 year old female - Time Spent with Patient Total time spent providing and/or coordinating discharge services: - Discharge Medications Home Medications: Levothyroxine [Synthroid] 112 mcg PO DAILY 06/06/16 [History] Cyanocobalamin/Cobamamide [Vitamin B-12 5,000 Mcg Tab Sl] 1 tab SL DAILY 02/25/18 [History] Docusate [Colace] 100 mg PO BID PRN 03/06/18 [History] Pantoprazole Sodium [Protonix] 40 mg PO DAILY 03/06/18 [History] Allergies/Adverse Reactions: Allergy/AdvReac Type Severity Reaction Status Date / Time promethazine [From Phenergan] Allergy See Verified 02/25/18 11:12 Comments codeine AdvReac Vomiting Verified 03/05/18 16:06 Sulfa (Sulfonamide AdvReac Nausea Verified 02/25/18 11:12 Antibiotics) Date of admission: 03/05/18 15:13 Primary care physician: Jeffrey Canela MD Consults: 03/05/18 15:52 Consult to Nutrition [CONS] Routine Comment: Consulting Provider: NUTRITION Reason for Dietary Consult: MST Score 03/05/18 17:39 Consult to Cardiology [CONS] Routine Comment: Consulting Provider: Cardiology Clifford Reason for Consult: New arrhythmia with chest pain Call Completed: Yes 03/06/18 08:46 Consult to Nephrology [CONS] Routine Consulting Provider: Kidney Clifford/ORIMI/COLLEEN/BROWN Reason for Consult: electrolytes abnormalitie Call Completed: Yes 03/06/18 13:14 Consult to Physical Therapy [CONS] Routine Comment: Evaluate, develop and implement POC Reason for Consult: weakness x 5 days Does patient have active BEDREST order?: No Is patient medically & hemodynamically stable?: Yes 03/09/18 09:11 Consult to Gastroenterology [CONS] Routine Consulting Provider: Gastroenterology Delmy Reason for Consult: abdominal pain Call Completed: Yes - Constitutional Vitals: Temp Pulse Resp BP Pulse Ox 98.4 F 76 16 136/92 99 03/09/18 11:35 03/09/18 11:35 03/09/18 11:35 03/09/18 11:35 03/09/18 11:35 - Discharge Instructions Instructions: Chest Pain (DC), Anemia (GEN) Follow Up With: Jeffrey Canela MD [Primary Care Provider] -
--- NOTE | 2018-03-09 12:50 | Gastroenterology Consult Note ---
<Benja Hughes - Last Filed: 03/09/18 12:46> Date of Encounter: 03/09/18 Time of Encounter: 11:00 - Assessment and plan (1) Abdominal pain Status: Acute Assessment and plan: CT A/P 03/05 with no acute findings. RUQ US 03/05 with no acute abnormality. Continue PPI and plan for EGD tomorrow to r/o esophagitis, gastritis, duoden itis, PUD, MW tear, or AVM. Qualifiers: Abdominal location: epigastric Qualified Code(s): R10.13 - Epigastric pain (2) Thrombocytopenia Status: Acute Assessment and plan: Complete liver workup. RUQ US with no acute abnormality. (3) Alcohol use Status: Acute - Time Spent With Patient Total time spent is greater than 50% in coordination of care (as documented) at patient's floor/unit and/or counseling patient: GI History of Present Illness - Data of Consult Patient: known to practice within the last 3 years Consult date: 03/09/18 Requesting Physician: Camille Ness - Consult Narrative Reason for consult: Abdominal pain History of present illness: Ms. Brown is a 52 year old female with PMHx of arthritis, COPD, GERD, hypothyroidism, alcohol abuse was transferred from [place] [facility] for Afib with RVR and chest pain. Patient confirms that she is a chronic drinker (> 7 drinks per week on average), only tequila and beer. She has had nausea, vomiting, and watery diarrhea for [address] A/P 03/05 with no acute findings. RUQ US 03/05 with no acute abnormality. She was started on IV fluids, antiemetics, and pain control. Procedures: Colonoscopy 07/25/2017 Dr. Roche: 2mm hyperplastic polyp, diverticu losis Colonoscopy 12/08/2008 Dr. Vee: Villous adenoma distal sigmoid colon. NSAIDs: None Anticoagulation: None Past Med Surg Social Fam HX - Past Medical History Medical history: arthritis, COPD, GERD, kidney stones, thyroid disease Additional medical history: hypothyroidism. dermatitis-scalp. mood disorder. lumbar pain. shingles. hx of Zoster. Psoriasis. Scleritis. HLA positive Titer- autoimmune disorder. parathyroid nodule Psychiatric history: depression - Past Surgical History Surgical History: sinus surgery, other Additional surgical history: umbilical hernia repair. trigger finger/cyst removed from hand. sinus -septoplasty-07/30. kidney stones removed x2 09/02. colonoscopy 07/25/17. parathyroidism removed on left side - Social History Smoking Status: Never smoker Smokeless Tobacco Status: No Alcohol use: none Drug use: none - Family History Father Living Status: Still Living Hx Family Cardiac Disorders: Yes (HLD) Grandmother Hx Family Cancer: Yes Mother Living Status: Still Living Hx Family Cardiac Disorders: Yes Hx Family Respiratory Disorders: No Hx Family Cancer: Yes Hx Family Endocrine Disorder: Yes Hx Family Autoimmune Disorders: Yes Hx Family Medical Disorders: Yes - Gastrointestinal Gastrointestinal: Present: as per HPI - Constitutional Constitutional: as per HPI - EENT Eyes: as per HPI Ears: Present: as per HPI Nose, mouth and throat: Present: as per HPI - Cardiovascular Cardiovascular ROS: Present: as per HPI - Respiratory Respiratory IM: Present: as per HPI - Genitourinary Genitourinary: Absent: change in color, Urinary frequency - Neurological ROS Neurological GI: Present: as per HPI - Hematologic/Lymphatic Hematologic/Lymphatic pediatric: Present: as per HPI - Musculoskeletal Musculoskeletal ROS GI: Present: as per HPI - Integumentary Integumentary GI: Present: as per HPI - Psychiatric ROS Psychiatric GI: Present: as per HPI - Endocrine Endocrine IM: Present: as per HPI - Constitutional Vitals: Temp Pulse Resp BP Pulse Ox 98.4 F 76 16 136/92 99 03/09/18 11:35 03/09/18 11:35 03/09/18 11:35 03/09/18 11:35 03/09/18 11:35 General appearance: Present: cooperative, A&O X 3, no acute distress, answers questions appropriately - Head Head exam: Present: atraumatic, normocephalic - Eye Eye exam: Present: normal appearance, sclera anicteric - ENT ENT exam: Present: mucous membranes moist - Neck Neck exam general surgery: Present: normal inspection, trachea midline - Respiratory Respiratory exam: Present: CTAB. Absent: rales, rhonchi - Cardiovascular Cardiovascular exam: Present: RRR, +S1, +S2 - GI/Abdominal GI/Abdominal exam: Present: soft, tenderness (mild epigastric), no peritoneal signs. Absent: distended, firm, guarding - Rectal Rectal exam: Present: deferred - Extremities Exam Extremities exam: Present: warm - Neurological Exam Neurological exam: Present: no focal deficits - Psychiatric Psychiatric exam: Present: normal affect, normal mood - Skin Skin exam: Present: dry, intact, normal color, warm Results - Labs CBC & Chem 7: 03/09/18 05:28 03/09/18 05:28 Labs: Last Result Calcium 9.5 mg/dL (8.6-10.3) 03/09/18 05:28 Troponin I 0.07 ng/mL (< 0.04) H* 03/06/18 03:55 Triglycerides 238 mg/dL (< 150) H 03/06/18 03:55 Entire Visit Hgb 12.7 g/dL (11.5-15.4) 03/09/18 05:28 Hct 36.2 % (35.3-44.9) 03/09/18 05:28 PT 10.5 Seconds (9.4-12.1) 03/05/18 16:41 Total Bilirubin 0.6 mg/dL (0.3-1.0) 03/08/18 06:52 AST 33 Units/L (13-39) 03/08/18 06:52 ALT 14 Units/L (7-52) 03/08/18 06:52 - ABG ABG results: PT/INR, D-dimer PT 10.5 Seconds (9.4-12.1) 03/05/18 16:41 Consult Discharge Plan - Plan Instructions: Chest Pain (DC), Anemia (GEN) Referrals: Catalino Carlton MD [Partnered Physician] - (Cardio will call for an appt.) Jeffrey Canela MD [Primary Care Provider] - 03/16/18 9:00 am (Please follow up as schedule...) Prescriptions: RX: Diltiazem CD (24hr) [Cardizem CD] 120 mg PO DAILY #30 cap.er.24h RX: HydrOXYzine 10 mg PO TID PRN #90 tablet PRN Reason: Anxiety <Ismael Joseph - Last Filed: 03/13/18 10:31> - Time Spent With Patient Total time spent is greater than 50% in coordination of care (as documented) at patient's floor/unit and/or counseling patient: GI History of Present Illness - Data of Consult Requesting Physician: Kings Moore, DO - Consult Narrative History of present illness: Ms. Brown is a 52 year old female - Constitutional Vitals: Temp Pulse Resp BP Pulse Ox 98.4 F 90 18 150/100 96 03/10/18 13:08 03/10/18 13:08 03/10/18 13:08 03/10/18 13:08 03/10/18 13:08 Results - Labs CBC & Chem 7: 03/10/18 04:18 03/10/18 04:18 Labs: Last Result Calcium 9.8 mg/dL (8.6-10.3) 03/10/18 04:18 Troponin I 0.07 ng/mL (< 0.04) H* 03/06/18 03:55 Triglycerides 238 mg/dL (< 150) H 03/06/18 03:55 Entire Visit Hgb 13.0 g/dL (11.5-15.4) 03/10/18 04:18 Hct 39.0 % (35.3-44.9) 03/10/18 04:18 PT 10.5 Seconds (9.4-12.1) 03/05/18 16:41 Total Bilirubin 0.6 mg/dL (0.3-1.0) 03/08/18 06:52 AST 33 Units/L (13-39) 03/08/18 06:52 ALT 14 Units/L (7-52) 03/08/18 06:52 - ABG ABG results: PT/INR, D-dimer PT 10.5 Seconds (9.4-12.1) 03/05/18 16:41 - Attending Attestation Plan upper endoscopy. I examined this patient and my medical decision-making was reviewed with the Resident Physician. I agree with the documented findings, disposition and treatment plan as described except to the extent set forth below.
--- NOTE | 2018-03-09 13:09 | Internal Med Progress Note ---
<Camille Ness - Last Filed: 03/09/18 17:26> Hospitalist Progress Note - Exam Vitals: Temp Pulse Resp BP Pulse Ox 98.4 F 76 16 136/92 99 03/09/18 11:35 03/09/18 11:35 03/09/18 11:35 03/09/18 11:35 03/09/18 11:35 - Time Spent with Patient Total time spent is greater than 50% in coordination of care (as documented) at patient's floor/unit and/or counseling patient: Internal Medicine: Result - Labs CBC & Chem 7: 03/09/18 05:28 03/09/18 05:28 Labs: Short CBC 03/09/18 Range/Units 05:28 WBC 3.1 L (4.3-11.1) K/mcL Hgb 12.7 (11.5-15.4) g/dL Hct 36.2 (35.3-44.9) % Plt Count 69 L (140-400) K/mcL Neutrophils # 1.7 (1.6-8.9) K/mcL BMP 03/09/18 05:28 Sodium 139 Potassium 3.6 Chloride 103 Carbon Dioxide 29 BUN 8 Creatinine 0.46 L Glucose 127 H Calcium 9.5 - ABG Interpretation ABG results: PT/INR, D-dimer PT 10.5 Seconds (9.4-12.1) 03/05/18 16:41 Consult Discharge Plan - Plan Instructions: Chest Pain (DC), Anemia (GEN) Referrals: Catalino Carlton MD [Partnered Physician] - (Cardio will call for an appt.) Jeffrey Canela MD [Primary Care Provider] - 03/16/18 9:00 am (Please follow up as schedule...) - Attending Attestation I examined this patient and my medical decision-making was reviewed with the Resident Physician Dr Salmon. I agree with the documented findings, disposition and treatment plan as described except to the extent set forth below/addl details below. Mrs Brown was admitted with new onset arrhythmia, svt , in setting of 3d nausea/emesis/abd pain with heavy etoh use. She noted one time episode of melena a week prior to admission. CArdiology followed her re svt. GI was consulted and will preform egd in am. awake, abd pain is now resolved, no n/v. Tolerated regular diet last night. no melena or hematochezia. gen- alert, awake,appears stated age eyes- pupils equal round , no conjunctival pallor, no scleral icterus cv- reg rate and rhythm, normal s1,s2, no murmurs appreciated lungs- ctabl, no wheezing, rhonchi or crackles, normal resp effort on ra abd- soft, tnon tender, no guarding or rigidity, non distended, + bs skin- normal color, no pallor or jaundice neuro- AAOx3, no tremor SVT, resolved no aCS, likely related to dehydration and metabolic disturbances including etoh use, agma -TTE 03/05/18: LVEF 65-70%, no significant valvular dysfunction, normal wall motion. -cont PO cardizem -managing electrolyte abnormalities -she will fu with Dr Carlton in 6 weeks Elevated Troponin, suspect dynamic elevation in setting of SVT, low liklihood acs -cards does not rec further inpt testing N/V/D/Abd Pain, improved- suspect 2/2 etoh dependence/intoxication vs hyperglycemia/starvation ketosis/agma cannot rule out gastritis vs ulcer given risk factors with heavy etoh use and epigastric and luq pain, notes one incidence of black stool about 1 week ago, none since -ct a/p at [facility] without acute etiology -RUQ US unremarkable -PPI -gi consulted and egd 03/10 etoh dependence-~6 beers/day, 10-15 shots of tequila/day. -ciwa scale, tele, thiamine/folate/mvi -etoh level neg on admit, last drink roughly 03/03 -at this time declines SW consult for assistance with resources available, will fu with pcp -has otc thiamine/folate/mvi at home AGMA, resolved- consulted nephro for further input on cause and treatment, started on bicarb infusion with closing of gap Likely 2/2 etoh use, emesis, diarrhea and poor oral intake,starvation ketoacidosis Hypophosphatemia- resolved Hypocalcemia-resolved Hypokalemia- nresolved Hypomagnesemia - resolved Thrombocytopenia on admission, plt down to 60, no signs of bleeding, stop sub q heparin for vte ppx, cont to monitor, stable plts BMI is 22.5. Severe Protein Calorie Malnutrition r/t ETOH intake with minimal intake of nutrient dense foods aeb 13% weight loss and energy intake <75% x2 months. -Pt is on nutritional supplements. nutrition following <Maikel Salmon - Last Filed: 03/09/18 18:14> Hospitalist Progress Note - Encounter Date of Encounter: 03/09/18 Time of Encounter: 09:00 - Subjective Interval History: No acute events overnight. Patient was seen at the bedside. She denies any episodes of melena or hematochezia. Patient has been tolerating regular diet last night. - Exam Vitals: Temp Pulse Resp BP Pulse Ox 98.4 F 76 16 136/92 99 03/09/18 11:35 03/09/18 11:35 03/09/18 11:35 03/09/18 11:35 03/09/18 11:35 Exam: General: Normal body habitus. Alert and oriented x3. No acute distress. Head: atraumatic, normocephalic. Eye: pupils equal and round. Sclera anicteric. EOMI. Neck: supple. Trachea midline. Lungs: CTAB. No rhonchi, rales, or wheezing. Cardiovascular: Normal S1 & S2. No rubs or gallops. No JVD. Pulse regular. Abdomen: Normal bowel sounds. LUQ tender to palpation. No guarding, no rigidity, no rebound. Extremities: No joint swelling, edema, or clubbing. Nontender. No tremors. Skin: warm, dry, and intact. - Assessment and Plan (1) SVT (supraventricular tachycardia) Current Visit: Yes Status: Resolved Assessment and Plan: -On admission patient had SVT likely secondary to dehydration due to multiple episodes of bilious emesis. It could also be also due to electrolyte disturbances secondary to alcohol abuse. -Recent EKG showed normal sinus rhythm. -Most recent echocardiogram showed no evidence of valvular dysfunction with LEVF : 65-70% -She has been transitioned from Cardizem drip to by mouth Cardizem 120 daily. -Follow-up with cardiology as an outpatient. (2) High anion gap metabolic acidosis Current Visit: Yes Status: Resolved Assessment and Plan: -Patient was admitted because of high anion gap metabolic acidosis (26) likely due to poor by mouth intake along with multiple episodes of bilious emesis. She has no history of diabetes, therefore it is highly unlikely it was DKA. - Patient has received 3 L of fluids since admission. She also received bicarbonate infusion on 03/06. -Currently gap has closed. Continue to monitor . (3) EtOH dependence Current Visit: Yes Status: Acute Assessment and Plan: - Patient has a history of alcohol abuse. She drinks 10-15 shots of tequila a day along with 6 beers a day. Had an episode of melena about a week ago therefore GI has been consulted. plan is to get an EGD tomorrow morning. NPO midnight. -CIWA protocol/ thiamine/folate/multivitamins. -Ativan when necessary. Continue to monitor - (4) Elevated troponin Current Visit: Yes Status: Resolved Assessment and Plan: -likely secondary to her episode of SVT. -L2 has been consult it and recommendation was to follow-up as patient converted to normal sinus rhythm . (5) Hyperglycemia Current Visit: No Status: Resolved Assessment and Plan: resolved . She has no history of diabetes, her most recent hemoglobin A1c was 4.9. She had elevated beta hydroxybutyric acid when she was admitted with ketones in the urine. Initial suspicion was that patient has DKA. However, patient glucose returned to normal with fluids and no insulin drip was given -Most recent glucose is 127. Continue to monitor (6) Electrolyte abnormality Current Visit: Yes Status: Acute Assessment and Plan: -Patient had hypophosphatemia, hypocalcemia, hypokalemia and hypomagnesemia likely due to poor PO intake, multiple episodes of bilious emesis , alcohol abuse -Patient potassium was 3.6. Was given 40 mEq of KCl this a.m. to get the K to 4.0 -Currently all electrolyte abnormalities have resolved (7) Hypothyroid Current Visit: No Status: Acute Assessment and Plan: Patient has a history of hypothyroidism. She endorses that she has missed multiple doses of her Synthroid and that explain why her TSH was elevated to 6.3 during admission. -She is on home dose of Synthroid as of now. . DVT Prophylaxis: SubQ Heparin - Time Spent with Patient Total time spent is greater than 50% in coordination of care (as documented) at patient's floor/unit and/or counseling patient: Internal Medicine: Result - Labs CBC & Chem 7: 03/09/18 05:28 03/09/18 05:28 Labs: Short CBC 03/09/18 Range/Units 05:28 WBC 3.1 L (4.3-11.1) K/mcL Hgb 12.7 (11.5-15.4) g/dL Hct 36.2 (35.3-44.9) % Plt Count 69 L (140-400) K/mcL Neutrophils # 1.7 (1.6-8.9) K/mcL BMP 03/09/18 05:28 Sodium 139 Potassium 3.6 Chloride 103 Carbon Dioxide 29 BUN 8 Creatinine 0.46 L Glucose 127 H Calcium 9.5 - ABG Interpretation ABG results: PT/INR, D-dimer PT 10.5 Seconds (9.4-12.1) 03/05/18 16:41 <Maikel Salmon - Last Filed: 03/09/18 18:14> (7) Hypothyroid Qualifiers: Qualified Code(s): E03.9 - Hypothyroidism, unspecified
[2018-03-09] MEDS ORDERED: Insulin LISPRO 300 UNITS/3 ML VIAL SQ SCH (21:00)
[2018-03-10 05:23] LABS: Basophils % 0.5 %; Mean Corpuscular Volume 99.2 fL (83.0-100.0)
[2018-03-10 05:25] LABS: Eosinophils # 0.2 K/mcL (0.0-0.6); Eosinophils % 4.3 %; Immature Granulocytes % 0.7 % (0-4); Lymphocytes # 0.8 K/mcL (0.6-4.6); Lymphocytes % 19.4 %; Mean Corpuscular HGB Conc 33.3 g/dL (31.6-35.5); Mean Corpuscular Hemoglobin 33.1 pg (28.0-33.3); Mean Platelet Volume 10.4 fL (9.4-12.4); Monocytes # 0.7 K/mcL (0.0-1.3); Monocytes % 16.1 %; Neutrophils # 2.5 K/mcL (1.6-8.9); Platelet Count 88 K/mcL (140-400); Red Blood Count 3.93 M/mcL (3.82-4.97); Red Cell Distribution Width 14.5 % (11.5-14.5)
[2018-03-10 05:37] LABS: BUN/Creatinine Ratio 21 (6-26); Blood Urea Nitrogen 11 mg/dL (6-20); Calcium 9.8 mg/dL (8.6-10.3); Carbon Dioxide 31 mEq/L (23-29); Chloride 104 mEq/L (98-107); Glucose 133 mg/dL (70-105); Osmolality,Calculated 291 (280-300); Potassium 4.2 mEq/L (3.5-5.1); Sodium 140 mEq/L (136-145); eGFR For Non-African Americans > 60 (> 60)
[2018-03-10] MEDS: Multivit/Ca/Min/Fe/FA 1 TAB TABLET PO SCH (09:15)
[2018-03-10] MEDS: Thiamine (B-1) 100 MG TABLET PO SCH (09:15)
[2018-03-10] MEDS: Insulin LISPRO 300 UNITS/3 ML VIAL SQ SCH ×2 (09:15→11:58)
[2018-03-10] MEDS: Folic Acid 1 MG TABLET PO SCH (09:15)
[2018-03-10] MEDS: Diltiazem CD (24hr) 120 MG CAPSULE PO SCH (09:18)
--- NOTE | 2018-03-10 09:22 | Discharge Summary ---
<Kings Moore - Last Filed: 03/10/18 18:26> Orders not resulted at time of discharge: Pending orders 03/06/18 03:55 Ionized Calcium,venous blood AM 0400 03/06/18 06:45 Basic Metabolic Panel Stat 03/06/18 11:17 Osmolality,Urine [UCHEM] Routine 03/06/18 11:40 Ionized Calcium,venous blood Routine Magnesium Routine 03/08/18 06:52 Ionized Calcium,venous blood AM 0400 03/10/18 13:34 Surgical Pathology [PTH] Routine - Discharge Diagnosis (1) Starvation ketoacidosis Priority: Primary Status: Acute (2) Abdominal pain Status: Acute Qualifiers: Abdominal location: epigastric Qualified Code(s): R10.13 - Epigastric pain (3) Electrolyte abnormality Status: Acute (4) SVT (supraventricular tachycardia) Status: Resolved (5) High anion gap metabolic acidosis Status: Resolved (6) Thrombocytopenia Status: Acute (7) EtOH dependence Status: Acute Qualifiers: Substance use status: uncomplicated Qualified Code(s): F10.20 - Alcohol dependence, uncomplicated (8) Hypothyroid Priority: Secondary Status: Chronic Qualifiers: Hypothyroidism type: acquired Qualified Code(s): E03.9 - Hypothyroidism, unspecified (9) Hypophosphatemia Priority: Secondary Status: Resolved (10) Hypokalemia Priority: Secondary Status: Resolved (11) Hypocalcemia Priority: Secondary Status: Resolved (12) Hypomagnesemia Priority: Secondary Status: Resolved (13) Gastritis Priority: Secondary Status: Suspected Qualifiers: Gastritis type: alcoholic Chronicity: acute Gastritis bleeding: without bleeding Qualified Code(s): K29.20 - Alcoholic gastritis without bleeding (14) Esophageal stenosis Priority: Secondary Status: Resolved Hospital course: Ms. Brown is a 52 year old female - Time Spent with Patient Total time spent providing and/or coordinating discharge services: 29min - Discharge Medications Prescriptions: Diltiazem CD (24hr) [Cardizem CD] 120 mg PO DAILY #30 cap.er.24h HydrOXYzine 10 mg PO TID PRN #90 tablet PRN Reason: Anxiety Home Medications: Levothyroxine [Synthroid] 112 mcg PO DAILY 06/06/16 [History] Cyanocobalamin/Cobamamide [Vitamin B-12 5,000 Mcg Tab Sl] 1 tab SL DAILY 02/25/18 [History] Docusate [Colace] 100 mg PO BID PRN 03/06/18 [History] Pantoprazole Sodium [Protonix] 40 mg PO DAILY 03/06/18 [History] Diltiazem CD (24hr) [Cardizem CD] 120 mg PO DAILY #30 cap.er.24h 03/10/18 [Rx] HydrOXYzine 10 mg PO TID PRN #90 tablet 03/10/18 [Rx] Allergies/Adverse Reactions: Allergy/AdvReac Type Severity Reaction Status Date / Time promethazine [From Phenergan] Allergy See Verified 02/25/18 11:12 Comments codeine AdvReac Vomiting Verified 03/05/18 16:06 Sulfa (Sulfonamide AdvReac Nausea Verified 02/25/18 11:12 Antibiotics) Date of admission: 03/05/18 15:13 Primary care physician: Jeffrey Canela MD Consults: 03/05/18 15:52 Consult to Nutrition [CONS] Routine Comment: Consulting Provider: NUTRITION Reason for Dietary Consult: MST Score 03/05/18 17:39 Consult to Cardiology [CONS] Routine Comment: Consulting Provider: Cardiology Delmy Reason for Consult: New arrhythmia with chest pain Call Completed: Yes 03/06/18 08:46 Consult to Nephrology [CONS] Routine Consulting Provider: Kidney Delmy/WELLINGTON/COLLEEN/TIFFANY Reason for Consult: electrolytes abnormalitie Call Completed: Yes 03/06/18 13:14 Consult to Physical Therapy [CONS] Routine Comment: Evaluate, develop and implement POC Reason for Consult: weakness x 5 days Does patient have active BEDREST order?: No Is patient medically & hemodynamically stable?: Yes 03/09/18 09:11 Consult to Gastroenterology [CONS] Routine Consulting Provider: Gastroenterology Delmy Reason for Consult: abdominal pain Call Completed: Yes - Constitutional Vitals: Temp Pulse Resp BP Pulse Ox 98.4 F 90 18 150/100 96 03/10/18 13:08 03/10/18 13:08 03/10/18 13:08 03/10/18 13:08 03/10/18 13:08 - Patient Status Disposition: Home, Self-Care Condition: Good Functional capacity at discharge: independent ambulation Overall status at discharge: patient is progressing back to baseline - Discharge Instructions Instructions: Chest Pain (DC), Anemia (GEN) Follow Up With: Catalino Carlton MD [Partnered Physician] - (Cardio will call for an appt. ) Jeffrey Canela MD [Primary Care Provider] - 03/16/18 9:00 am (Please follow up as schedule...) - Diet and Activity Activity: increase activity as tolerated Diet: advance to your usual diet - Attending Attestation I examined this patient and my medical decision-making was [facility]. I agree with the documented findings, disposition and treatment plan as described except to the extent set forth below. Ms Brown has been admitted for ketoacidosis and SVT. Electrolytes were supplemented and she was started on Cardizem. Today she is feeling better and is aferbrile. She is ready for discharge home. Exam alert Comfortable Mucus membranes dry Heart not tachy No wheeze abd not tender No edema Plan D/C home today. <Candelario May - Last Filed: 03/10/18 19:52> - NOTES TO OUTPATIENT PROVIDER Notes to Outpatient Provider: Follow up on pending EGD biopsy results. Patient was transitioned from Cardizem drip to PO Cardizem 120 daily. Follow-up with cardiology as an outpatient. Orders not resulted at time of discharge: Pending orders 03/06/18 03:55 Ionized Calcium,venous blood AM 0400 03/06/18 06:45 Basic Metabolic Panel Stat 03/06/18 11:17 Osmolality,Urine [UCHEM] Routine 03/06/18 11:40 Ionized Calcium,venous blood Routine Magnesium Routine 03/08/18 06:52 Ionized Calcium,venous blood AM 0400 Date of Encounter: 03/10/18 Time of Encounter: 09:45 - Discharge Diagnosis (1) Electrolyte abnormality Priority: Primary Status: Acute Assessment and Plan: Patient had hypophosphatemia, hypocalcemia, hypokalemia and hypomagnesemia likely due to alcoholism and poor PO intake, multiple episodes of bilious emesis Electrolyte abnormalities have resolved (2) High anion gap metabolic acidosis Priority: Secondary Status: Resolved Assessment and Plan: Patient was admitted because of high anion gap metabolic acidosis (26) likely due to poor by mouth intake along with multiple episodes of bilious emesis. She has no history of diabetes, therefore it is highly unlikely it was DKA. Patient has received 3 L of fluids since admission. She also received bicarbonate infusion on 03/06. Gap closed. (3) EtOH dependence Priority: Secondary Status: Acute Assessment and Plan: Patient has a history of alcohol abuse. She drinks 10-15 shots of tequila a day along with 6 beers a day. Had an episode of melena about a week ago therefore GI has been consulted. plan is to get an EGD tomorrow morning. NPO midnight. CIWA protocol/ thiamine/folate/multivitamins. Continue Ativan when necessary. Continue to monitor Qualifiers: Substance use status: uncomplicated Qualified Code(s): F10.20 - Alcohol dependence, uncomplicated (4) Abdominal pain Priority: Secondary Status: Acute Assessment and Plan: Likely secondary to alcohol use and hyperglycemia/starvation ketosis/AGMA. Patient reports one episode of melena >1wk ago. Had multiple bowel movements in hospital, all normal. Hb was normal. UA was negative. Amylase and lipase were normal. RUQ ultrasound was negative. CT abd/pelvis showed no acute abnormality. Continue Zofran. Consulted GI, nothing by mouth, anticipate EGD today EGD performed prior to discharge Qualifiers: Abdominal location: epigastric Qualified Code(s): R10.13 - Epigastric pain (5) SVT (supraventricular tachycardia) Priority: Secondary Status: Resolved Assessment and Plan: On admission patient had SVT likely secondary to dehydration due to multiple episodes of bilious emesis. It could also be also due to electrolyte disturbanc es secondary to alcohol abuse. Recent EKG showed normal sinus rhythm. Most recent echocardiogram showed no evidence of valvular dysfunction with LEVF : 65-70% She has been transitioned from Cardizem drip to by mouth Cardizem 120 daily. Follow-up with cardiology as an outpatient. (6) Thrombocytopenia Priority: Secondary Status: Acute Assessment and Plan: Thrombocytopenia on admission, plt down to 60, no signs of bleeding, cont to monitor, stable plts (7) Severe protein-calorie malnutrition Priority: Secondary Status: Acute Assessment and Plan: BMI is 22.5. Severe Protein Calorie Malnutrition r/t ETOH intake with minimal intake of nutrient dense foods aeb 13% weight loss and energy intake <75% x2 months. Pt is on nutritional supplements. 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 At baseline, she drinks 6 beers/day and 10-15 shots of tequila/day. She was started on Ativan per ciwa protocol, thiamine/folate/ and mvi. She reported N/V/D and abd pain which improved during her hospitalization with symptomatic care and correction of electrolyte abnormalities. GI was consulted and performed EGD with biopsies to rule out gastritis given risk factors including heavy etoh use, epigastric/ LUQ pain, and one incidence of black stool about 1 week ago. She was monitored on telemetry and transitioned from Cardizem drip to oral Cardizem 120 daily. Patient is scheduled for follow-up with cardiology as an outpatient. SW consulted for assistance with resources available, patient stated she will f/u with pcp. Discharge discussed with: patient - Time Spent with Patient Total time spent providing and/or coordinating discharge services: Date of admission: 03/05/18 15:13 Primary care physician: Jeffrey Canela MD Consults: 03/05/18 15:52 Consult to Nutrition [CONS] Routine Comment: Consulting Provider: NUTRITION Reason for Dietary Consult: MST Score 03/05/18 17:39 Consult to Cardiology [CONS] Routine Comment: Consulting Provider: Cardiology Demly Reason for Consult: New arrhythmia with chest pain Call Completed: Yes 03/06/18 08:46 Consult to Nephrology [CONS] Routine Consulting Provider: Kidney Delmy/WELLINGTON/COLLEEN/TIFFANY Reason for Consult: electrolytes abnormalitie Call Completed: Yes 03/06/18 13:14 Consult to Physical Therapy [CONS] Routine Comment: Evaluate, develop and implement POC Reason for Consult: weakness x 5 days Does patient have active BEDREST order?: No Is patient medically & hemodynamically stable?: Yes 03/09/18 09:11 Consult to Gastroenterology [CONS] Routine Consulting Provider: Gastroenterology Delmy Reason for Consult: abdominal pain Call Completed: Yes Discharging clinician: Kings Moore Anticipated date of discharge: 03/10/18 - Constitutional Vitals: Temp Pulse Resp BP Pulse Ox 98.4 F 80 15 122/87 99 03/10/18 08:07 03/10/18 08:07 03/10/18 08:07 03/10/18 08:07 03/10/18 08:07 General appearance: Present: cooperative, pleasant, no acute distress, answers questions appropriately Exam: Awake - Head Head exam: Present: atraumatic, normocephalic (temporal wasting) - Eye Eye exam: Present: EOMI, conjuntiva pink, sclera anicteric - ENT ENT exam: Present: mucous membranes dry, normal oropharynx - Neck Neck exam general surgery: Present: supple, trachea midline. Absent: lymphadenopathy - Respiratory Respiratory exam: Present: CTAB. Absent: accessory muscle use, rales, rhonchi, wheezes - Cardiovascular Cardiovascular exam: Present: RRR, +S1, +S2. Absent: diastolic murmur, gallop, rubs, systolic murmur - GI/Abdominal GI/Abdominal exam: Present: normal bowel sounds, soft, no peritoneal signs. Absent: distended, tenderness - Extremities Exam Extremities exam: Present: warm (loss of subQ fat), radial pulses palpable and symmetrical. Absent: calf tenderness, cyanotic, pedal edema - Neurological Exam Neurological exam: Present: CN II-XII intact, oriented X3, no focal deficits. Absent: pronater drift, facial droop, speech deficit - Psychiatric Psychiatric exam: Present: normal affect, normal mood - Skin Skin exam: Present: dry, intact, warm - Patient Status Functional capacity at discharge: independent ambulation Overall status at discharge: patient is progressing back to baseline - Diet and Activity Activity: increase activity as tolerated Diet: advance to your usual diet
--- NOTE | 2018-03-10 11:30 | Anesthesia Evaluation PreOp ---
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: Denies Any Significant HX Other Medical History: Renal (stones), Thyroid (hypothyroid) Anesthesia History: Past Anesthesia (hernia, sinus, renal stones, SAIMA), Problems (PONV) : No (SAIMA) Alcohol Use: none Drug use: none Medications and Allergies RX: Levothyroxine [Synthroid] 112 mcg PO DAILY 06/06/16 [History] Cyanocobalamin/Cobamamide [Vitamin B-12 5,000 Mcg Tab Sl] 1 tab SL DAILY 02/25/18 [History] Pantoprazole Sodium [Protonix] 40 mg PO DAILY 03/06/18 [History] RX: Docusate [Colace] 100 mg PO BID PRN 03/06/18 [History] Allergy/AdvReac Type Severity Reaction Status Date / Time promethazine [From Phenergan] Allergy See Verified 02/25/18 11:12 Comments codeine AdvReac Vomiting Verified 03/05/18 16:06 Sulfa (Sulfonamide AdvReac Nausea Verified 02/25/18 11:12 Antibiotics) - Meds/Allergy Pre-op Review Medications Reviewed: Yes Allergies Reviewed: Yes Beta Blockers on Current Med List: No Anesthesia Results - Labs 03/10/18 04:18 03/10/18 04:18 - Imaging EKG: report reviewed (SINUS RHYTHM ST DEVIATION AND MODERATE T-WAVE ABNORMALITY, CONSIDER ANTERIOR ISCHEMIA) Anesthesia Exam Vital Signs/O2 Sat, Most Current Temp Pulse Resp BP Pulse Ox 98.4 F 80 15 122/87 99 03/10/18 08:07 03/10/18 08:07 03/10/18 08:07 03/10/18 08:07 03/10/18 08:07 NPO (# of Hours): > 8 hrs Pain Scale: 0 Pain Scale Used: Numeric (1 - 10) - HEENT Pupil (Motor): Pupils equal, EOMI Mallampati: II Teeth: Missing Denture Type: Upper: Partial Oral Opening: Greater than 3 - INSTRUMENTATION CONTROLS ENGINEER LOC: Oriented INSTRUMENTATION [employer]S ENGINEER Motor: Normal RUE, Normal LUE, Normal RLE, Normal LLE, Normal Face [employer]ATION [employer] ENGINEER Sensory: Normal: RUE, LUE, RLE, LLE, Face - Cardiac Rhythm: Regular Murmur: None JVD: No Carotid Bruit: No - Pulmonary Breath Sounds: bilateral Clear Respiratory Effort: Symmetrical Anesthesia Assess/Plan ASA Score: 3 Modified Roman Scale for Level of Consciousness: Cooperative, oriented, and tranquil Anesthetic Plan: MAC Autologous Blood: Yes Monitoring Plan: Standard Monitors Recovery Plan: PACU
[2018-03-10] MEDS ORDERED: Propofol 500 MG/50 ML INFUS..BTL ONE (11:52)
[2018-03-10] MEDS ORDERED: Lidocaine -MPF 2% 2 ML VIAL ONE (11:55)
[2018-03-10] MEDS ORDERED: Ondansetron 4 MG/2 ML VIAL ONE (12:40)
[2018-03-10] MEDS ORDERED: Tetracaine/Benzocaine/Butamben 1 SPRAY AEROSOL ONE (13:09)
[2018-03-10 13:10] VITALS: BP 150/100
[2018-03-10] MEDS ORDERED: Tetracaine/Benzocaine/Butamben 1 SPRAY AEROSOL MM ONE (13:12)
[2018-03-10] MEDS ORDERED: Simethicone 40 MG/0.6 ML MLS IR ONE (13:12)
[2018-03-10] MEDS ORDERED: 0.9 % Sodium Chloride 500 ML IVC SCH (13:15)
[2018-03-10] MEDS: Acetaminophen 325 MG TABLET PO PRN (14:30)
== END 2018-03-10 15:00 | disposition home or self-care (01) | DRG 637 ==
LOC: SUATTDRO 15:13 → 2NENU 15:13 → ICNU 19:28 → 2ANU 03-06 11:58
PROVIDERS: ADMIT Internal Medicine; ATTEND Internal Medicine
PROC: ENDOEBX (2018-03-10 13:45)

== ENCOUNTER 2020-08-09 15:27 | Inpatient (IN) ==
[2020-08-09] MEDS ORDERED: 0.9 % Sodium Chloride 1,000 ML IVC ONE (15:40)
[2020-08-09] MEDS ORDERED: Isovue-370 500 ML BOTTLE IVP ONE (15:46)
[2020-08-09] MEDS ORDERED: *HR* LORazepam 2 MG/ML VIAL IVP ONE (15:48)
[2020-08-09 15:58] LABS: Basophils # 0.1 K/mcL (0.0-0.2); Basophils % 0.5 %; Eosinophils % 0.3 %; Hematocrit 47.9 % (35.3-44.9); Hemoglobin 16.2 g/dL (11.5-15.4); Immature Granulocytes % 0.3 % (0-4); Lymphocytes # 2.8 K/mcL (0.6-4.6); Lymphocytes % 23.1 %; Mean Corpuscular HGB Conc 33.8 g/dL (31.6-35.5); Mean Corpuscular Hemoglobin 32.8 pg (28.0-33.3); Mean Platelet Volume 9.5 fL (9.4-12.4); Monocytes # 0.9 K/mcL (0.0-1.3); Monocytes % 7.2 %; Neutrophils # 8.2 K/mcL (1.6-8.9); Platelet Count 200 K/mcL (140-400); Red Blood Count 4.94 M/mcL (3.82-4.97); Red Cell Distribution Width 13.2 % (11.5-14.5); Segmented Neutrophils % 68.6 %; White Blood Count 11.9 K/mcL (4.3-11.1)
[2020-08-09 16:01] LABS: VBG PH 7.47 pH Units (7.32-7.42)
[2020-08-09 16:20] LABS: Alanine Aminotransferase 11 Units/L (7-52); Albumin 4.5 g/dL (3.5-5.7); Albumin/Globulin Ratio 1.4 (1.1-2.2); Alkaline Phosphatase 70 Units/L (34-104); Aspartate Amino Transferase 24 Units/L (13-39); BUN/Creatinine Ratio 30 (6-26); Bilirubin,Direct 0.2 mg/dL (0.0-0.2); Bilirubin,Indirect 0.7 mg/dL (0.0-1.0); Bilirubin,Total 0.9 mg/dL (0.3-1.0); Blood Urea Nitrogen 23 mg/dL (6-20); Calcium 9.7 mg/dL (8.6-10.3); Carbon Dioxide 20 mEq/L (23-29); Chloride 99 mEq/L (98-107); Globulin 3.3 g/dL (2.4-3.5); Glucose 154 mg/dL (70-105); Lipase 20 Units/L (11-82); Osmolality,Calculated 299 (280-300); Potassium 3.2 mEq/L (3.5-5.1); Sodium 141 mEq/L (136-145); Total Protein 7.8 g/dL (6.4-8.9); Troponin I < 0.03 ng/mL (< 0.04); eGFR For African Americans > 60 (> 60); eGFR For Non-African Americans > 60 (> 60)
[2020-08-09 16:31] LABS: Ethanol < 10 mg/dL (Less than 10)
[2020-08-09] MEDS ORDERED: Potassium Chloride Elixir 20 MEQ/15 ML UDC PO ONE (17:25)
[2020-08-09 17:33] LABS: Bilirubin,Urine Negative (Negative); Blood,Urine Small (Negative); Clarity,Urine Clear (Clear); Color,Urine Colorless (Yellow); Glucose,Urine (UA) Normal (Normal); Ketones,Urine 80 mg/dL (Negative); Leukocyte Esterase,Urine Negative (Negative); Mucus,Urine Few per lpf (None-Few); Nitrite,Urine Negative (Negative); PH,Urine 6.5 pH Units (5.0-8.0); Protein,Urine 100 mg/dL (Neg-Trace); Specific Gravity,Urine > 1.030 (1.010-1.025); Squamous Epithelial Cell,Urine Few per hpf (None-Few); Urobilinogen,Urine Normal (Normal); WBC,Urine 0-3 per hpf (0-3)
[2020-08-09] MEDS ORDERED: *HR* LORazepam 2 MG/ML VIAL IVP PRN ×2 (20:11)
[2020-08-09] MEDS ORDERED: Potassium Chloride 20 MEQ, Lidocaine 1% 2 ML in 0.9 % Sodium Chloride 250 ML IVPB ONE (20:15)
[2020-08-09] MEDS: *HR* LORazepam 2 MG/ML VIAL IVP PRN (20:34)
[2020-08-09] MEDS: Ondansetron 4 MG/2 ML VIAL IVP PRN (20:34)
[2020-08-09] MEDS ORDERED: Perflutren Lipid Microsphere 1.3 ML in 0.9 % Sodium Chloride 8.7 ML IVP PRN (20:59)
[2020-08-09] MEDS ORDERED: Naloxone 0.4 MG/ML INJ IVP PRN (21:34)
[2020-08-09 21:46] LABS: Amphetamine Screen,Urine Negative ng/mL (Cutoff=1000); Barbiturate Screen,Urine Negative ng/mL (Cutoff=200); Benzodiazepines Screen,Urine Negative ng/mL (Cutoff=200); Cannabinoid Screen,Urine Positive ng/mL (Cutoff = 50); Cocaine Screen,Urine Negative ng/mL (Cutoff= 300); Opiate Screen,Urine Negative ng/mL (Cutoff=300); Phencyclidine Screen,Urine Negative ng/mL (Cutoff=25)
[2020-08-09] MEDS ORDERED: D5% in Water 1,000 ML IVC PRN (22:12)
[2020-08-09] MEDS ORDERED: Dextrose Gel 15 GM/37.5 ML TUBE PO PRN ×2 (22:12)
[2020-08-09] MEDS: Aspirin Enteric Coated 81 MG Tablet PO SCH (23:24)
[2020-08-10] MEDS: Insulin LISPRO 300 UNITS/3 ML VIAL SUBQ SCH ×3 (01:00→13:26)
[2020-08-10] MEDS: *HR* Dextrose 50 % in Water (Vial) 50 ML VIAL IVP PRN ×2 (03:40→06:07)
[2020-08-10] MEDS: Ondansetron 4 MG/2 ML VIAL IVP PRN ×2 (03:55→13:07)
[2020-08-10] MEDS: *HR* LORazepam 2 MG/ML VIAL IVP PRN ×2 (03:55→14:35)
[2020-08-10] MEDS: Famotidine 20 MG/2 ML VIAL IVP SCH ×2 (05:00→18:01)
[2020-08-10 06:33] LABS: Hematocrit 40.1 % (35.3-44.9); Mean Corpuscular HGB Conc 32.7 g/dL (31.6-35.5); Mean Corpuscular Volume 97.8 fL (83.0-100.0); Mean Platelet Volume 9.7 fL (9.4-12.4); Platelet Count 126 K/mcL (140-400); Red Cell Distribution Width 13.1 % (11.5-14.5)
[2020-08-10 06:39] LABS: Prothrombin Time 11.4 Seconds (9.4-12.1)
[2020-08-10 06:41] LABS: Activated Partial Thrombo Time 26.9 Seconds (26.0-36.0); Hemoglobin 13.1 g/dL (11.5-15.4); White Blood Count 5.7 K/mcL (4.3-11.1)
[2020-08-10 06:52] LABS: BUN/Creatinine Ratio 23 (6-26); Blood Urea Nitrogen 18 mg/dL (6-20); Calcium 8.9 mg/dL (8.6-10.3); Carbon Dioxide 28 mEq/L (23-29); Chloride 104 mEq/L (98-107); Chol/HDL Ratio 2.9 (0-4.9); Cholesterol 279 mg/dL (< 200); Glucose 84 mg/dL (70-105); HDL Cholesterol 97 mg/dL (40-59); LDL Cholesterol,Calculated 152 mg/dL (< 100); Magnesium 1.8 mg/dL (1.6-2.6); Osmolality,Calculated 285 (280-300); Potassium 4.1 mEq/L (3.5-5.1); Sodium 137 mEq/L (136-145); Triglycerides 151 mg/dL (< 150); Troponin I < 0.03 ng/mL (< 0.04); eGFR For African Americans > 60 (> 60); eGFR For Non-African Americans > 60 (> 60)
[2020-08-10 06:55] LABS: Thyroid Stimulating Hormone 4.079 mcIU/mL (0.340-5.600)
[2020-08-10 07:04] LABS: Folate 15.4 ng/mL (3.0-16.0)
[2020-08-10] MEDS: Thiamine (B-1) 100 MG TABLET PO SCH (08:35)
[2020-08-10] MEDS: Folic Acid 1 MG TABLET PO SCH (08:35)
[2020-08-10] MEDS: Aspirin Enteric Coated 81 MG Tablet PO SCH (08:35)
[2020-08-10] MEDS: Vitamin B Complex/Vit C/Vit E 1 EACH TABLET PO SCH (08:35)
[2020-08-10 08:57] LABS: Estimated Average Glucose 103 mg/dl; Hemoglobin A1C 5.2 %
[2020-08-10] MEDS: Acetaminophen 325 MG TABLET PO PRN (14:35)
[2020-08-11] MEDS: Ondansetron 4 MG/2 ML VIAL IVP PRN ×4 (02:33→19:28)
[2020-08-11] MEDS: Acetaminophen 325 MG TABLET PO PRN ×2 (02:33→09:38)
[2020-08-11] MEDS: *HR* LORazepam 2 MG/ML VIAL IVP PRN ×4 (02:33→21:10)
[2020-08-11 03:26] LABS: Mean Corpuscular Volume 97.4 fL (83.0-100.0); Red Blood Count 4.21 M/mcL (3.82-4.97)
[2020-08-11 03:27] LABS: Hemoglobin 13.7 g/dL (11.5-15.4); Immature Platelets 2.9 % (1.1-6.1); Mean Corpuscular HGB Conc 33.4 g/dL (31.6-35.5); Mean Corpuscular Hemoglobin 32.5 pg (28.0-33.3); Mean Platelet Volume 9.9 fL (9.4-12.4); Red Cell Distribution Width 12.7 % (11.5-14.5); White Blood Count 4.6 K/mcL (4.3-11.1)
[2020-08-11] MEDS: Famotidine 20 MG/2 ML VIAL IVP SCH ×2 (05:11→17:02)
[2020-08-11] MEDS: Folic Acid 1 MG TABLET PO SCH (09:39)
[2020-08-11] MEDS: Thiamine (B-1) 100 MG TABLET PO SCH (09:39)
[2020-08-11] MEDS: Aspirin Enteric Coated 81 MG Tablet PO SCH (09:39)
[2020-08-11] MEDS: Vitamin B Complex/Vit C/Vit E 1 EACH TABLET PO SCH (09:39)
[2020-08-12 01:44] LABS: Red Cell Distribution Width 12.6 % (11.5-14.5)
[2020-08-12 01:46] LABS: Hematocrit 43.1 % (35.3-44.9); Hemoglobin 14.7 g/dL (11.5-15.4); Immature Platelets 3.2 % (1.1-6.1); Mean Corpuscular HGB Conc 34.1 g/dL (31.6-35.5); Mean Corpuscular Hemoglobin 33.4 pg (28.0-33.3); Mean Platelet Volume 9.8 fL (9.4-12.4); Red Blood Count 4.4 M/mcL (3.82-4.97); White Blood Count 4.5 K/mcL (4.3-11.1)
[2020-08-12 02:04] LABS: BUN/Creatinine Ratio 17 (6-26); Blood Urea Nitrogen 12 mg/dL (6-20); Calcium 9.6 mg/dL (8.6-10.3); Carbon Dioxide 30 mEq/L (23-29); Chloride 105 mEq/L (98-107); Glucose 91 mg/dL (70-105); Osmolality,Calculated 291 (280-300); Potassium 4.1 mEq/L (3.5-5.1); Sodium 141 mEq/L (136-145); eGFR For African Americans > 60 (> 60); eGFR For Non-African Americans > 60 (> 60)
[2020-08-12] MEDS: Famotidine 20 MG/2 ML VIAL IVP SCH (05:53)
[2020-08-12] MEDS: Aspirin Enteric Coated 81 MG Tablet PO SCH (07:50)
[2020-08-12] MEDS: Vitamin B Complex/Vit C/Vit E 1 EACH TABLET PO SCH (07:50)
[2020-08-12] MEDS: Thiamine (B-1) 100 MG TABLET PO SCH (07:50)
[2020-08-12] MEDS: Folic Acid 1 MG TABLET PO SCH (07:50)
[2020-08-12] MEDS: Ondansetron 4 MG/2 ML VIAL IVP PRN (11:48)
[2020-08-12 12:02] VITALS: BP 133/81
== END 2020-08-12 13:21 | disposition home or self-care (01) | DRG 897 ==
LOC: EMEROOARM 15:27 → 3BNU 15:27 → SUATTDRO 18:56 → 3BNU 19:37
PROVIDERS: ADMIT General Practice; ATTEND Nurse Practitioner

== ENCOUNTER 2021-12-12 12:50 | Observation (INO) ==
[2021-12-12 13:35] LABS: Basophils % 0.6 %; Hemoglobin 15.3 g/dL (11.5-15.4); Red Cell Distribution Width 12.7 % (11.5-14.5)
[2021-12-12 13:37] LABS: Hematocrit 45.4 % (35.3-44.9); Immature Granulocytes % 0.9 % (0-4); Lymphocytes # 0.6 K/mcL (0.6-4.6); Mean Corpuscular HGB Conc 33.7 g/dL (31.6-35.5); Mean Corpuscular Hemoglobin 32.1 pg (28.0-33.3); Mean Corpuscular Volume 95.2 fL (83.0-100.0); Monocytes # 0.8 K/mcL (0.0-1.3); Monocytes % 17.3 %; Red Blood Count 4.77 M/mcL (3.82-4.97); Segmented Neutrophils % 69.2 %; White Blood Count 4.7 K/mcL (4.3-11.1)
[2021-12-12 13:41] LABS: Neutrophils # 3.3 K/mcL (1.6-8.9); Platelet Count 93 K/mcL (140-400)
[2021-12-12] MEDS ORDERED: Iopamidol - 370 500 ML MLS IVP ONE ×2 (13:41→17:51)
[2021-12-12 13:52] LABS: BUN/Creatinine Ratio 27 (6-26); Blood Urea Nitrogen 18 mg/dL (6-20); Calcium 9.2 mg/dL (8.6-10.3); Carbon Dioxide 27 mEq/L (23-29); Chloride 99 mEq/L (98-107); Glucose 93 mg/dL (70-105); Osmolality,Calculated 284 (280-300); Potassium 3.2 mEq/L (3.5-5.1); Sodium 136 mEq/L (136-145); Troponin I < 0.03 ng/mL (< 0.04); eGFR For African Americans > 60 (> 60); eGFR For Non-African Americans > 60 (> 60)
[2021-12-12] MEDS ORDERED: Potassium Chloride Elixir 20 MEQ/15 ML UDC PO ONE (14:15)
[2021-12-12] MEDS ORDERED: Aspirin 325 MG TABLET PO ONE (14:16)
[2021-12-12 14:27] LABS: Large Platelets Present (Not Present); Platelet Estimate Slight Decrease (Normal)
[2021-12-12] MEDS ORDERED: Naloxone 0.4 MG/ML INJ IVP PRN (16:42)
[2021-12-12] MEDS ORDERED: Melatonin 3 MG TABLET PO PRN (16:42)
[2021-12-12] MEDS ORDERED: MOM Conc 10 ML UD.LIQ PO PRN (16:42)
[2021-12-12] MEDS ORDERED: Ondansetron 4 MG/2 ML VIAL IVP PRN (16:42)
[2021-12-12] MEDS ORDERED: Perflutren Lipid Microsphere 1.3 ML in 0.9 % Sodium Chloride 8.7 ML IVP PRN (17:03)
[2021-12-12] MEDS: 0.9 % Sodium Chloride 2,000 ML IVC SCH (17:49)
[2021-12-12 18:58] LABS: Adenovirus Not Detected (Not Detect); Coronavirus 229E Not Detected (Not Detect); Coronavirus HKU1 Not Detected (Not Detect); Coronavirus NL63 Not Detected (Not Detect); Coronavirus OC43 Not Detected (Not Detect)
[2021-12-12 18:59] LABS: Bordetella Pertussis Not Detected (Not Detect); Chlamydophila pneumoniae Not Detected (Not Detect); Human Metapneumovirus Not Detected (Not Detect); Human Rhinovirus/Enterovirus Not Detected (Not Detect); Influenza A Subtype 2009 H1 Not Detected (Not Detect); Influenza B Not Detected (Not Detect); Mycoplasma pneumoniae Not Detected (Not Detect); Parainfluenza Virus 1 Not Detected (Not Detect); Parainfluenza Virus 2 Not Detected (Not Detect); Parainfluenza Virus 3 Not Detected (Not Detect); Parainfluenza Virus 4 Not Detected (Not Detect); Respiratory Syncytial Virus Not Detected (Not Detect); SARS-CoV-2 DETECTED (Not Detect)
[2021-12-12 19:50] LABS: Amylase 35 Units/L (29-103); Lipase 33 Units/L (11-82)
[2021-12-12] MEDS: Sucralfate 1 GM TABLET PO SCH (21:18)
[2021-12-12 23:01] LABS: Campylobacter by PCR Not detected (Not detect)
[2021-12-12 23:03] LABS: Adenovirus F 40/41 PCR Not detected (Not detect); Astrovirus PCR Not detected (Not detect); C.difficile Toxin A/B Gene PCR DETECTED (Not detect); Cryptosporidium by PCR Not detected (Not detect); Cyclospora cayetanensis PCR Not detected (Not detect); Entamoeba histolytica PCR Not detected (Not detect); Enteroaggregative E.coli(EAEC) Not detected (Not detect); Enteropathogenic E.coli(EPEC) Not detected (Not detect); Enterotoxigenic E.coli (ETEC) Not detected (Not detect); Giardia lamblia PCR Not detected (Not detect); Norovirus GI/GII PCR Not detected (Not detect); Plesiomonas shigelloides PCR Not detected (Not detect); Rotavirus A PCR Not detected (Not detect); Salmonella PCR Not detected (Not detect); Sapovirus PCR Not detected (Not detect); Shig/EnteroinvasiveE coli EIEC Not detected (Not detect); Shigalike tox-prod E coli STEC Not detected (Not detect); Vibrio PCR Not detected (Not detect); Vibrio cholerae PCR Not detected (Not detect); Yersinia enterocolitica PCR Not detected (Not detect)
[2021-12-13 02:17] LABS: Eosinophils % 0.2 %; Mean Corpuscular Volume 95.9 fL (83.0-100.0); Red Cell Distribution Width 12.9 % (11.5-14.5)
[2021-12-13 02:20] LABS: Basophils % 0.4 %; Hematocrit 42.5 % (35.3-44.9); Hemoglobin 14.2 g/dL (11.5-15.4); Immature Granulocytes % 0.7 % (0-4); Immature Platelets 5.2 % (1.1-6.1); Lymphocytes # 0.9 K/mcL (0.6-4.6); Lymphocytes % 19.5 %; Mean Corpuscular HGB Conc 33.4 g/dL (31.6-35.5); Mean Corpuscular Hemoglobin 32.1 pg (28.0-33.3); Mean Platelet Volume 10.4 fL (9.4-12.4); Monocytes % 16.6 %; Neutrophils # 2.8 K/mcL (1.6-8.9); Red Blood Count 4.43 M/mcL (3.82-4.97); Segmented Neutrophils % 62.6 %; White Blood Count 4.5 K/mcL (4.3-11.1)
[2021-12-13 02:22] LABS: Monocytes # 0.8 K/mcL (0.0-1.3); Platelet Count 93 K/mcL (140-400)
[2021-12-13 02:44] LABS: Alanine Aminotransferase 13 Units/L (7-52); Albumin 3.5 g/dL (3.5-5.7); Albumin/Globulin Ratio 1.5 (1.1-2.2); Alkaline Phosphatase 49 Units/L (34-104); Aspartate Amino Transferase 18 Units/L (13-39); BUN/Creatinine Ratio 27 (6-26); Bilirubin,Total 0.3 mg/dL (0.3-1.0); Blood Urea Nitrogen 20 mg/dL (6-20); Calcium 8.3 mg/dL (8.6-10.3); Carbon Dioxide 24 mEq/L (23-29); Chloride 106 mEq/L (98-107); Globulin 2.3 g/dL (2.4-3.5); Glucose 102 mg/dL (70-105); Magnesium 1.9 mg/dL (1.6-2.6); Osmolality,Calculated 289 (280-300); Phosphorous 1.8 mg/dL (2.7-4.5); Potassium 3.7 mEq/L (3.5-5.1); Sodium 138 mEq/L (136-145); Total Protein 5.8 g/dL (6.4-8.9); eGFR For African Americans > 60 (> 60); eGFR For Non-African Americans > 60 (> 60)
[2021-12-13 03:05] LABS: Folate 8.5 ng/mL (3.0-16.0)
[2021-12-13] MEDS ORDERED: *HR* Enoxaparin 30 MG/0.3 ML SYRINGE SQ SCH (06:00)
[2021-12-13] MEDS ORDERED: Enoxaparin Weight Dosing SQ SCH (06:00)
[2021-12-13 07:21] VITALS: BP 145/90; PULSE 73; TEMP 99.2; O2SAT 95
[2021-12-13] MEDS ORDERED: predniSONE 20 MG TABLET PO SCH (08:00)
[2021-12-13] MEDS ORDERED: Magnesium Oxide 400 MG TABLET PO ONE (08:29)
[2021-12-13] MEDS: Sucralfate 1 GM TABLET PO SCH ×2 (09:03→11:15)
[2021-12-13] MEDS: 0.9 % Sodium Chloride 2,000 ML IVC SCH (09:09)
[2021-12-13] MEDS ORDERED: Acetaminophen 325 MG TABLET PO PRN (11:18)
[2021-12-13] MEDS ORDERED: Ringers Solution, Lactated 1,000 ML IVC SCH (11:45)
[2021-12-14] MEDS ORDERED: *HR* Enoxaparin 40 MG/0.4 ML SYRINGE SQ SCH (06:00)
== END 2021-12-13 15:41 | disposition home or self-care (01) ==
LOC: 3BNU 12:50 → EMEROOARM 12:50 → 3BNU 17:24 → SUATTDRO 19:10
PROVIDERS: ADMIT Family Medicine; ATTEND Student in an Organized Health Care Education/Training Program